=== PATIENT | female | born 1950 | race Caucasian/White ===

== ENCOUNTER 2021-01-25 11:34 | Outpatient (REF) | payer MEDICARE, OTHER, SELFPAY ==
[2021-01-25 20:46] LABS: ALT 48 U/L (14-59); AST 33 U/L (15-37); Albumin 3.8 g/dL (3.4-5.0); Alkaline Phosphatase 83 U/L (46-116); Anion Gap 6.4 mmol/L (3-11); BUN 28 mg/dL (7-18); Bilirubin, Total 0.3 mg/dL (0.2-1.0); CO2 30.6 mmol/L (21.0-32.0); CREATININE 0.9 mg/dL (0.55-1.02); Calcium 9.3 mg/dL (8.5-10.1); Calculated LDL 123 mg/dL (<100); Chloride 105 mmol/L (98-107); Cholesterol 203 mg/dL (<200); Glucose 103 mg/dL (74-106); HDL Cholesterol 66 mg/dL (40-60); Potassium 4.7 mmol/L (3.5-5.1); Sodium 142 mmol/L (136-145); Total Protein 7.1 g/dL (6.4-8.2); Triglyceride 70 mg/dL (<150)
== END 2021-01-25 11:35 | disposition home or self-care (01) ==
LOC: NCHCN 11:34
PROVIDERS: Visit Provider Nurse Practitioner Family
DX: E78.5 Hyperlipidemia, unspecified (principal)
CPT/HCPCS: 80053; 80061

== ENCOUNTER 2021-12-22 09:34 | Outpatient (REF) | payer MEDICARE, OTHER, SELFPAY ==
[2021-12-22 20:50] LABS: ALT 52 U/L (14-59); AST 37 U/L (15-37); Albumin 3.8 g/dL (3.4-5.0); Alkaline Phosphatase 80 U/L (46-116); Anion Gap 6.4 mmol/L (3-11); BUN 21 mg/dL (7-18); Bilirubin, Total 0.3 mg/dL (0.2-1.0); CO2 30.6 mmol/L (21.0-32.0); CREATININE 0.7 mg/dL (0.55-1.02); Calcium 9.3 mg/dL (8.5-10.1); Calculated LDL 75 mg/dL (<100); Chloride 105 mmol/L (98-107); Cholesterol 168 mg/dL (<200); Estimated GFR 93.56 (mL/min/1.73m2); Glucose 95 mg/dL (74-106); HDL Cholesterol 82 mg/dL (40-60); Potassium 4.2 mmol/L (3.5-5.1); Sodium 142 mmol/L (136-145); Total Protein 7.7 g/dL (6.4-8.2); Triglyceride 55 mg/dL (<150)
== END 2021-12-22 09:35 | disposition home or self-care (01) ==
LOC: NCHCN 09:34
PROVIDERS: Visit Provider Nurse Practitioner Family
DX: E78.5 Hyperlipidemia, unspecified (principal)
CPT/HCPCS: 80053; 80061

== ENCOUNTER 2022-02-25 14:38 | Outpatient (REF) | payer MEDICARE, OTHER, SELFPAY ==
--- NOTE | 2022-02-25 12:00 | LIPBX_PTH ---
PATIENT: Deborah Macias LOC: [facility]#:[id number] AGE/SX: 72/F ROOM: RE02/25/[address]: Yovana Herrera : 1950 BED: DIS: 02/25/2022 SPEC #: [id number] RECD: 02/28/22 12:10 STATUS: NICOLE REEvaristo #: [id number] MARLYS: 02/25/22 12:[address]: Yovana Herrera DEPT: Surgical Specimen RECD BY: Meghana Livingston Tissues: 1 - LIP BIOPSY/RESECTION 2 - SKIN CYST/TAG/DEBRIDEMENT Procedures: GROSS AND MICRO LEVEL 4 SKIN LEVEL 4 Comments: [id number]
--- OUTSIDE RECORDS SUMMARY | 2022-02-25 14:50 | XMS_ITS | Continuity of Care Document ---
:1950 Author Organization [facility] Address [address] [place] [address] Care Team Providers Name Role Phone PCP, Not Given Primary Care Physician Unavailable Preet Thakkar Attending Physician Allergies, Adverse Reactions, Alerts No allergy information available. Medications No medication information available. Problem List No problem information available. Procedures No known history of procedures. Relevant Diagnostic Tests and/or Laboratory Data Laboratory Results Test Date/Time Result Interp. Ref. Range Result Comment White Blood Count September 26, 2019 2.80 1000/mm3 Low 4.8-10.8 11:46am Red Blood Count September 26, 2019 4.33 M/mm3 4.20-5.40 11:46am Hemoglobin September 26, 2019 13.3 g/dL 12.0-16.0 11:46am Hematocrit September 26, 2019 42.0 % 37-47 11:46am Mean Corpuscular September 26, 2019 97.0 fL 81.0-99.0 Volume 11:46am Mean Corpuscular September 26, 2019 30.7 pg 27-31 Hemoglobin 11:46am Mean Corpuscular September 26, 2019 31.7 g/dL Low 33-37 Hemoglobin Concent 11:46am Red Cell Distribution September 26, 2019 12.3 % 11.5-14.5 Width 11:46am Platelet Count September 26, 2019 204 1000/mm3 140-440 11:46am Mean Platelet Volume September 26, 2019 11.2 fL High 7.4-10.4 11:46am Neutrophils (%) (Auto) September 26, 2019 50.3 % 40.0-72.0 11:46am Lymphocytes (%) (Auto) September 26, 2019 36.8 % 17-45 11:46am Monocytes (%) (Auto) September 26, 2019 10.4 % 3-11 11:46am Eosinophils (%) (Auto) September 26, 2019 1.4 % 0-3 11:46am Basophils (%) (Auto) September 26, 2019 1.1 % High 0-1 11:46am Immature Granulocyte % September 26, 2019 0.0 % 0-1 (Auto) 11:46am Neutrophils # (Auto) September 26, 2019 1.41 1000/mm3 1.4-6.5 11:46am Lymphocytes # (Auto) September 26, 2019 1.03 1000/mm3 Low 1.2-3.4 11:46am Monocytes # (Auto) September 26, 2019 0.29 1000/mm3 0.0-0.8 11:46am Eosinophils # (Auto) September 26, 2019 0.04 1000/mm3 0.0-0.7 11:46am Basophils # (Auto) September 26, 2019 0.03 1000/mm3 0.0-0.1 11:46am Absolute Immature September 26, 2019 0.0 0-1 Granulocyte (auto 11:46am Differential Method September 26, 2019 Automated 11:46am Sodium Level September 26, 2019 138 mmol/L 137-145 11:46am Potassium Level September 26, 2019 4.2 mmol/L 3.6-5.0 11:46am Chloride Level September 26, 2019 99 mmol/L 98-107 11:46am Carbon Dioxide Level September 26, 2019 33 mmol/L High 22-30 11:46am Anion Gap September 26, 2019 6 Low 7-16 11:46am Blood Urea Nitrogen September 26, 2019 17 mg/dL 7-17 11:46am Creatinine September 26, 2019 0.62 mg/dL 0.52-1.04 11:46am Glomerular Filtration September 26, 2019 > 60 mL/min 60.0- Rate Calc 11:46am Glucose Level September 26, 2019 100 mg/dL 70-100 11:46am Calcium Level September 26, 2019 9.3 mg/dL 8.4-10.2 11:46am Calcium Adjusted for September 26, 2019 9.1 mg/dL 8.4-10.2 Albumin 11:46am Total Bilirubin September 26, 2019 0.3 mg/dL 0.2-1.3 11:46am Aspartate Amino Transf September 26, 2019 48 U/L High 14-36 (AST/SGOT) 11:46am Alanine September 26, 2019 36 U/L High As of 07/19/19 , the Reference Range for ALT/SGPT for adult patients has been updated. Aminotransferase 11:46am The Refe rence Range for ALT/SGPT has not been established for patients <18 years of age. (ALT/SGPT) Total Protein September 26, 2019 7.1 g/dL 6.3-8.2 11:46am Albumin September 26, 2019 4.6 g/dL 3.5-5.0 11:46am Cholesterol Level September 26, 2019 212 mg/dL High 59-199 11:46am HDL Cholesterol September 26, 2019 60 mg/dL 40-60 The [place] Cholesterol Education Program (NCEP) has set the following guidelines (reference values) for cholesterol, HDL: 11:46am Low HDL: <40 m g/dL Normal: 40-60 mg/dL Desirable: >60 mg/dL LDL Cholesterol September 26, 2019 123.4 mg/dL 0-129 11:46am VLDL Cholesterol September 26, 2019 28.6 mg/dL 0-32 11:46am Cholesterol/HDL Ratio September 26, 2019 3.53 0-3.9 11:46am Triglycerides Level September 26, 2019 143 mg/dL 0-149 11:46am Alkaline Phosphatase September 26, 2019 73 U/L 38-126 11:46am Hospital Discharge Instructions No known hospital discharge instructions. Encounters Encounter Facility Location Admit/Visit Discharge/Departure Atte nding Date Date Provider Departed [facility] September 26, 2019 September 26, 2019 6:58pm [facility] 6:57pm [facility] Functional Status No known functional status. Immunizations No known immunizations. Payers Payer Policy Type Covered Covered Relationship Subscriber Subs criber Id Name Green Party Green Party Id [employer] CORA [id number] Sponsored CORA [id number] DEWART [employer] (DO NOT USE) NOTCH Personal DEBORAH [id number] Self/Same as DEBORAH [id number] ANNE Patient ANNE SELF PAY Personal Plan of Care No Known Plan of Care Information Social History No known social history. Vital Signs No known vital signs results.
--- OUTSIDE RECORDS SUMMARY | 2022-02-25 14:50 | XMS_ITS | Continuity of Care Document ---
:1950 Author Organization [facility] Address [address] [place] [address] Care Team Providers Name Role Phone PCP, of Choice Primary Care Physician Sue Tamayo Attending Physician Allergies, Adverse Reactions, Alerts No allergy information available. Medications No medication information available. Problem List No problem information available. Procedures No known history of procedures. Relevant Diagnostic Tests and/or Laboratory Data Laboratory Results Test Date/Time Result Interp. Ref. Range Result Comment White Blood Count November 26, 3.01 1000/mm3 Low 4.8-10.8 2019 10:00am Red Blood Count November 26, 4.52 M/mm3 4.20-5.40 2019 10:00am Hemoglobin November 26, 13.9 g/dL 12.0-16.0 2019 10:00am Hematocrit November 26, 43.1 % 37-47 2019 10:00am Mean Corpuscular November 26, 95.4 fL 81.0-99.0 Volume 2019 10:00am Mean Corpuscular November 26, 30.8 pg 27-31 Hemoglobin 2019 10:00am Mean Corpuscular November 26, 32.3 g/dL Low 33-37 Hemoglobin Concent 2019 10:00am Red Cell Distribution November 26, 12.6 % 11.5-14.5 Width 2019 10:00am Platelet Count November 26, 259 1000/mm3 542-183 8175 10:00am Mean Platelet Volume November 26, 10.6 fL High 7.4-10.4 2019 10:00am Neutrophils (%) (Auto) November 26, 51.1 % 40.0-72.0 2019 10:00am Lymphocytes (%) (Auto) November 26, 31.2 % 17-45 2019 10:00am Monocytes (%) (Auto) November 26, 12.0 % High 3-11 2019 10:00am Eosinophils (%) (Auto) November 26, 4.7 % High 0-3 2019 10:00am Basophils (%) (Auto) November 26, 1.0 % 0-1 2019 10:00am Immature Granulocyte % November 26, 0.0 % 0-1 (Auto) 2019 10:00am Neutrophils # (Auto) November 26, 1.54 1000/mm3 1.4-6.5 2019 10:00am Lymphocytes # (Auto) November 26, 0.94 1000/mm3 Low 1.2-3.4 2019 10:00am Monocytes # (Auto) November 26, 0.36 1000/mm3 0.0-0.8 2019 10:00am Eosinophils # (Auto) November 26, 0.14 1000/mm3 0.0-0.7 2019 10:00am Basophils # (Auto) November 26, 0.03 1000/mm3 0.0-0.1 2019 10:00am Absolute Immature November 26, 0.0 0-1 Granulocyte (auto 2020 10:00am Differential Method November 26, Automated 2019 10:00am Sodium Level November 26, 141 mmol/L 257-183 0759 10:00am Potassium Level November 26, 4.6 mmol/L 3.6-5.0 2019 10:00am Chloride Level November 26, 100 mmol/L 98-107 2019 10:00am Carbon Dioxide Level November 26, 36 mmol/L High 22-30 2019 10:00am Anion Gap November 26, 5 Low 7-16 2019 10:00am Blood Urea Nitrogen November 26, 22 mg/dL High 7-17 2019 10:00am Creatinine November 26, 0.69 mg/dL 0.52-1.04 2019 10:00am Glomerular Filtration November 26, > 60 mL/min 60.0- Rate Calc 2019 10:00am Glucose Level November 26, 110 mg/dL High 70-100 2019 10:00am Calcium Level November 26, 9.9 mg/dL 8.4-10.2 2019 10:00am Calcium Adjusted for November 26, 9.8 mg/dL 8.4-10.2 Albumin 2019 10:00am Total Bilirubin November 26, 0.3 mg/dL 0.2-1.3 2019 10:00am Aspartate Amino Transf November 26, 50 U/L High 14-36 (AST/SGOT) 2019 10:00am Alanine November 26, 48 U/L High As of 5/1/20 , the Reference Range for ALT/SGPT for adult patients has been updated. Aminotransferase 2019 10:00am The Re ference Range for ALT/SGPT has not been established for patients <18 years of age. (ALT/SGPT) Total Protein November 26, 7.3 g/dL 6.3-8.2 2019 10:00am Albumin November 26, 4.4 g/dL 3.5-5.0 2019 10:00am Cholesterol Level November 26, 198 mg/dL 59-199 2019 10:00am HDL Cholesterol November 26, 67 mg/dL High 40-60 The [facility] Cholesterol Education Program (NCEP) has set the following guidelines (reference values) for cholesterol, HDL: 2019 10:00am Low HDL: <40 mg/dL Normal: 40-60 mg/dL Desirable: >60 mg/dL LDL Cholesterol November 26, 99.4 mg/dL 0-129 2019 10:00am VLDL Cholesterol November 26, 31.6 mg/dL 0-32 2019 10:00am Cholesterol/HDL Ratio November 26, 2.95 0-3.9 2019 10:00am Triglycerides Level November 26, 158 mg/dL High 0-149 2019 10:00am Alkaline Phosphatase November 26, 83 U/L 38-126 2019 10:00am Hospital Discharge Instructions No known hospital discharge instructions. Encounters Encounter Facility Location Admit/Visit Discharge/Departure Atte nding Date Date Provider Departed [facility] November 26, November 27[facility] Departed [facility] September 26, 2019 September 26, 2019 [facility] Functional Status No known functional status. Immunizations No known immunizations. Payers Payer Name Policy Type Covered Covered Relationship Subscriber Sub scriber Id Constitution Party Constitution Party Id [employer] CORA [id number] Sponsored CORA BHAT [id number] BANK (DO FROILAN Dependent FROILAN NOT USE) [employer] ADELIA [id number] Self/Same as ADELIA RJ [id number] [place] ANNE Patient ANNE NOTCH Personal ADELIA [id number] Self/Same as ADELIA [id number] [facility] Patient ANNE SELF PAY Personal Plan of Care No Known Plan of Care Information Social History No known social history. Vital Signs No known vital signs results.
--- OUTSIDE RECORDS SUMMARY | 2022-02-25 14:50 | XMS_ITS | Continuity of Care Document ---
:1950 Author Organization [facility] Address [address] [place] [address] Phone Care Team Providers Name Role Phone PCP, Not Given Primary Care Provider Unavailable Preet Thakkar Attending Provider Allergies, Adverse Reactions, Alerts No allergy information available. Medications No medication information available. Problems No problem information available. Relevant Diagnostic Tests and/or Laboratory Data Laboratory Results Test Date/Time Result Interpretation Reference Result Perfo rming Range Comment Site White Blood Count September 25, 2.80 4.8-10.8 [place] IN LAB, [facility] 2019 1000/mm3 [facility] [address] 11:46am Red Blood Count September 25, 4.33 M/mm3 4.20-5.40 PEG N LAB, [facility] 2019 [facility] 61381 11:46am Hemoglobin September 25, 13.3 g/dL 12.0-16.0 MAIN LAB, [address] [place] [address] 2019 [facility] [address] 11:46am Hematocrit September 25, 42.0 % 37-47 MAIN LAB, [facility] 2019 [facility] 24460 11:46am Mean Corpuscular September 25, 97.0 fL 81.0-99.0 PEG N LAB, [facility] Volume 2019 [facility] 58938 11:46am Mean Corpuscular September 25, 30.7 pg 27-31 PEG N LAB, [address] [place] [address] Hemoglobin 2020 [facility] [address] 11:46am Mean Corpuscular September 25, 31.7 g/dL 33-37 PEG N LAB, [address] [place] [address] Hemoglobin 2020 [facility] [address] Concent 11:46am Red Cell September 25, 12.3 % 11.5-14.5 MAIN LAB, [facility] Distribution 2019 [facility] [address] Width 11:46am Platelet Count September 25, 204 140-440 MAIN LAB, [address] [place] [address] 2019 1000/mm3 [facility] 46496 11:46am Mean Platelet September 25, 11.2 fL 7.4-10.4 MAIN L AB, [address] [place] [address] Volume 2019 [facility] 71724 11:46am Neutrophils (%) September 25, 50.3 % 40.0-72.0 MAIN LAB, [address] [place] [address] (Auto) 2019 [facility] [address]406 11:46am Lymphocytes (%) September 25, 36.8 % 17-45 MAIN LAB, [address] [place] [address] (Auto) 2019 [facility] 66878 11:46am Monocytes (%) September 25, 10.4 % 3-11 MAIN L AB, [address] [place] [address] (Auto) 2019 [facility] [address]708 11:46am Eosinophils (%) September 25, 1.4 % 0-3 MAIN LAB, [address] [place] [address] (Auto) 2019 [facility] 93937 11:46am Basophils (%) September 25, 1.1 % 0-1 MAIN L AB, [address] [place] [address] (Auto) 2019 [facility] [address]141 11:46am Immature September 25, 0.0 % 0-1 MAIN LAB, [address] [place] [address] Granulocyte % 2019 [place] [address] (Auto) 11:46am Neutrophils # September 25, 1.41 1.4-6.5 MAIN L AB, [address] [place] [address] (Auto) 2019 1000/mm3 [facility] 87968 11:46am Lymphocytes # September 25, 1.03 1.2-3.4 MAIN L AB, [address] [place] [address] (Auto) 2019 1000/mm3 [facility] 45596 11:46am Monocytes # September 25, 0.29 0.0-0.8 MAIN LAB , [address] [place] [address] (Auto) 2019 1000/mm3 [facility] 66061 11:46am Eosinophils # September 25, 0.04 0.0-0.7 MAIN L AB, [address] [place] [address] (Auto) 2019 1000/mm3 [place] [address] 11:46am Basophils # September 25, 0.03 0.0-0.1 MAIN LAB , [address] [place] [address] (Auto) 2019 1000/mm3 [place] [address] 11:46am Absolute Immature September 25, 0.0 0-1 MA IN LAB, [address] [place] [address] (auto 2019 [facility] [address] 11:46am Differential September 25, Automated MAIN LA B, [address] [place] [address] Method 2019 [place] [address] 11:46am Sodium Level September 25, 138 mmol/L 137-145 MAIN L AB, [address] [place] [address] 11:46am Potassium Level September 25, 4.2 mmol/L 3.6-5.0 PEG N LAB, [address] [place] [address] 11:46am Chloride Level September 25, 99 mmol/L 98-107 MAIN LAB, [address] [place] [address] 11:46am Carbon Dioxide September 25, 33 mmol/L 22-30 MAIN LAB, [address] [place] [address] 2019 [place] [address] 11:46am Anion Gap September 25, 6 7-16 MAIN LAB, [address] [place] [address] 11:46am Blood Urea September 25, 17 mg/dL 7-17 MAIN LAB, [address] [place] [address] Nitrogen 2019 [place] [address] 11:46am Creatinine September 25, 0.62 mg/dL 0.52-1.04 MAIN LAB , [address] [place] [address] 11:46am Glomerular September 25, > 60 >60.0 MAIN LAB, [address] [place] [address] Filtration Rate 2019 mL/min [place] [address] Calc 11:46am Glucose Level September 25, 100 mg/dL 70-100 MAIN L AB, [address] [place] [address] 11:46am Calcium Level September 25, 9.3 mg/dL 8.4-10.2 MAIN L AB, [address] [place] [address] 2019 [facility] [address]135 11:46am Calcium Adjusted September 25, 9.1 mg/dL 8.4-10.2 PEG N LAB, [address] [place] [address] for Albumin 2019 [facility] [address] 11:46am Total Bilirubin September 25, 0.3 mg/dL 0.2-1.3 MAIN LAB, [address] [place] [address] 11:46am Aspartate Amino September 25, 48 U/L 14-36 MAIN LAB, [address] [place] [address] (AST/SGOT) 2019 [facility] [address] 11:46am Alanine September 25, 36 U/L <35 As of MAIN LAB, [address] [place] [address] Aminotransferase 201907/19/19, the [facility] [address] (ALT/SGPT) 11:46am Reference Range for ALT/SGPT for adult patients has been updated. The Reference Range for ALT/SGPT has not been established for patients <18 years of age. Total Protein September 25, 7.1 g/dL 6.3-8.2 MAIN L AB, [address] [place] [address] 2019 [facility] 28727 11:46am Albumin September 25, 4.6 g/dL 3.5-5.0 MAIN LAB, [address] [place] [address] 2019 [facility] [address]35[address] 11:46am Cholesterol Level September 25, 212 mg/dL 59-199 [place] IN LAB, [address] [place] [address] 11:46am HDL Cholesterol September 25, 60 mg/dL 40-60 [facility] AIN LAB, [address] [place] [address] 2019 Cholesterol [facility] 51492 11:46am Education Program (NCEP) has set the following guidelines (reference values) for cholesterol, HDL:Low HDL: <40 mg/dLNormal: 40-60 mg/dLDesirab le: >60 mg/dL LDL Cholesterol September 25, 123.4 0-129 MAIN LAB, [address] [place] [address] 2019 mg/dL [facility] 72442 11:46am VLDL Cholesterol September 25, 28.6 mg/dL 0-32 [place] IN LAB, [address] [place] [address] 2019 [facility] 08482 11:46am Cholesterol/HDL September 25, 3.53 0-3.9 MAIN LAB, [address] [place] [address] 2019 [facility] [address] 11:46am Triglycerides September 25, 143 mg/dL 0-149 MAIN L AB, [address] [facility] Level [address] [place] [address] 11:46am Alkaline September 25, 73 U/L 38-126 MAIN LAB, [address] [facility] Phosphatase 2020 [place] [address] 11:46am Advance Directives Advance Directive Response Recorded Date/Time Does patient have an Advanced Directive? No February 09, 2010 1:35pm Pt has a Living Will? No February 09 201 0 1:35pm Pt has a Power of Timber Sprinkler? No January 1:35pm Encounters Encounter Location(s) Arrival/Admit Date Discharge/Depart Date Provider(s) Departed [facility] September 26, 2019 September 26, 2019 6:58pm Peret Thakkar , Referred Medical 6:57pm JENNY [facility] Assessments No Assessments Information Available Functional Status No Functional Status information available Goals Goals may be documented in an alternate section. Mental Status No Mental Status Information Available Medical Equipment No Medical Equipment Information available Insurance Providers Guarantor Deborah Echevarria Address [address] [place] [address] Contact Info. Home Phone: Payer Policy Id Coverage Id Subscriber's Subscriber Id Effective E xpiration Name Date Date BLUE [id number] CORA Flores [id number] [employer] (DO NOT USE) [facility] [id number] DEBORAH Awad [id number] ANNE SELF PAY Self N/A Social History Assigned Sex Female
--- OUTSIDE RECORDS SUMMARY | 2022-02-25 14:51 | XMS_ITS | Continuity of Care Document ---
:1950 Author Organization [facility] Address [address] [place] [address] Phone Care Team Providers Name Role Phone PCP, Not Given Primary Care Provider Unavailable Preet Thakkar Attending Provider PCP, of Choice Primary Care Provider Unavailable Sue Loco Attending Provider Allergies, Adverse Reactions, Alerts No allergy information available. Medications No medication information available. Problems No problem information available. Relevant Diagnostic Tests and/or Laboratory Data Laboratory Results Test Date/Time Result Interpretation Reference Result Perfo rming Range Comment Site White Blood Count September 25, 2.80 4.8-10.8 [place] IN LAB, [facility] 2019 1000/mm3 [facility] [address] 11:46am White Blood Count November 3.01 4.8-10.8 [place] IN LAB, [address] [place] [address] 2019 1000/mm3 [facility] 82565 10:00am Red Blood Count November 4.52 M/mm3 4.20-5.40 PEG N LAB, [address] [place] [address] 2019 [facility] 02136 10:00am Red Blood Count September 25, 4.33 M/mm3 4.20-5.40 PEG N LAB, [address] [place] [address] 2019 [facility] 74892 11:46am Hemoglobin September 25, 13.3 g/dL 12.0-16.0 MAIN LAB, [address] [place] [address] 2019 [facility] 95203 11:46am Hemoglobin November 13.9 g/dL 12.0-16.0 MAIN LAB, [address] [place] [address] 2019 [facility] 98190 10:00am Hematocrit September 25, 42.0 % 37-47 MAIN LAB, [facility] [address] [place] [address] 11:46am Hematocrit November 43.1 % 37-47 MAIN LAB, [address] [place] [address] 2019 [place] [address] 10:00am Mean Corpuscular November 95.4 fL 81.0-99.0 PEG N LAB, [facility] Volume [address] [place] [address] 10:00am Mean Corpuscular September 25, 97.0 fL 81.0-99.0 PEG N LAB, [address] [place] [address] Volume 2019 [place] [address] 11:46am Mean Corpuscular September 25, 30.7 pg 27-31 PEG N LAB, [address] [place] [address] Hemoglobin 2019 [place] [address] 11:46am Mean Corpuscular November 30.8 pg 27-31 PEG N LAB, [address] [place] [address] Hemoglobin 2019 [place] [address] 10:00am Mean Corpuscular November 32.3 g/dL 33-37 PEG N LAB, [address] [place] [address] Hemoglobin 2019 [place] [address] Concent 10:00am Mean Corpuscular September 25, 31.7 g/dL 33-37 PEG N LAB, [address] [place] [address] Hemoglobin 2019 [place] [address] Concent 11:46am Red Cell September 25, 12.3 % 11.5-14.5 MAIN LAB, [facility] Distribution 2019 [place] [address] Width 11:46am Red Cell November 12.6 % 11.5-14.5 MAIN LAB, [address] [place] [address] Distribution 2019 [place] [address] Width 10:00am Platelet Count November 259 140-440 MAIN LAB, [facility] 2019 1000/[place]3 [place] [address] 10:00am Platelet Count September 25, 204 140-440 MAIN LAB, [facility] 2019 1000/[place]3 [place] [address] 11:46am Mean Platelet November 10.6 fL 7.4-10.4 MAIN L AB, [facility] Volume [address] [place] [address] 10:00am Mean Platelet September 25, 11.2 fL 7.4-10.4 MAIN L AB, [address] [place] [address] Volume 2019 [facility] 38076 11:46am Neutrophils (%) September 25, 50.3 % 40.0-72.0 MAIN LAB, [address] [place] [address] (Auto) 2019 [facility] 44588 11:46am Neutrophils (%) November 51.1 % 40.0-72.0 MAIN LAB, [address] [place] [address] (Auto) 2019 [facility] 99033 10:00am Lymphocytes (%) November 31.2 % 17-45 MAIN LAB, [address] [place] [address] (Auto) 2019 [facility] 84752 10:00am Lymphocytes (%) September 25, 36.8 % 17- MAIN LAB, [address] [place] [address] (Auto) 2019 [facility] 61853 11:46am Monocytes (%) September 25, 10.4 % 3-11 MAIN L AB, [address] [place] [address] (Auto) 2019 [facility] 86683 11:46am Monocytes (%) November 12.0 % 3-11 MAIN L AB, [address] [place] [address] (Auto) 2019 [facility] 78765 10:00am Eosinophils (%) September 25, 1.4 % 0-3 MAIN LAB, [address] [place] [address] (Auto) 2019 [facility] [address]80 11:46am Eosinophils (%) November 4.7 % 0-3 MAIN LAB, [address] [place] [address] (Auto) 2019 [facility] [address]11 10:00am Basophils (%) November 1.0 % 0-1 MAIN L AB, [address] [place] [address] (Auto) 2019 [facility] [address]449 10:00am Basophils (%) September 25, 1.1 % 0-1 MAIN L AB, [address] [place] [address] (Auto) 2019 [facility] 85540 11:46am Immature November 0.0 % 0-1 MAIN LAB, [address] [place] [address] Granulocyte % 2019 [facility] [address] (Auto) 10:00am Immature September 25, 0.0 % 0-1 MAIN LAB, [address] [place] [address] Granulocyte % 2019 [facility] [address] (Auto) 11:46am Neutrophils # September 25, 1.41 1.4-6.5 MAIN L AB, [address] [place] [address] (Auto) 2019 1000/[place]3 [place] [address] 11:46am Neutrophils # Nelly 1.54 1.4-6.5 MAIN L AB, [address] [place] [address] (Auto) 2019 1000/[place]3 [place] [address] 10:00am Lymphocytes # September 25, 1.03 1.2-3.4 MAIN L AB, [address] [place] [address] (Auto) 2019 1000/[place]3 [place] [address] 11:46am Lymphocytes # Nelly 0.94 1.2-3.4 MAIN L AB, [address] [place] [address] (Auto) 2019 1000/[place]3 [place] [address] 10:00am Monocytes # Nelly 0.36 0.0-0.8 MAIN LAB , [address] [place] [address] (Auto) 2019 1000/[place]3 [place] [address] 10:00am Monocytes # September 25, 0.29 0.0-0.8 MAIN LAB , [address] [place] [address] (Auto) 2019 1000/[place]3 [place] [address] 11:46am Eosinophils # November 0.14 0.0-0.7 MAIN L AB, [address] [place] [address] (Auto) 2019 1000/[place]3 [place] [address] 10:00am Eosinophils # September 25, 0.04 0.0-0.7 MAIN L AB, [address] [place] [address] (Auto) 2019 1000/[place]3 [place] [address] 11:46am Basophils # September 25, 0.03 0.0-0.1 MAIN LAB , [address] [place] [address] (Auto) 2019 1000/[place]3 [place] [address] 11:46am Basophils # November 0.03 0.0-0.1 MAIN LAB , [address] [place] [address] (Auto) 2019 1000/[place]3 [place] [address] 10:00am Absolute Immature Nelly 0.0 0-1 MA IN LAB, [address] [place] [address] Granulocyte (auto 2019 [place] [place] [address] 10:00am Absolute Immature September 25, 0.0 0-1 [place] IN LAB, [address] [place] [address] Granulocyte (auto [address] [place] [address] 11:46am Differential Nelly Automated MAIN LA B, [facility] Method 2019 [facility] 64771 10:00am Differential September 25, Automated MAIN LA B, [address] [facility] 2019 [facility] [address]774 11:46am Sodium Level November 141 mmol/L 137-145 MAIN L AB, [address] [place] [address] 2019 [facility] 28050 10:00am Sodium Level September 25, 138 mmol/L 137-145 MAIN L AB, [address] [place] [address] 2019 [facility] 63766 11:46am Potassium Level September 25, 4.2 mmol/L 3.6-5.0 PEG N LAB, [address] [place] [address] 11:46am Potassium Level November 4.6 mmol/L 3.6-5.0 PEG N LAB, [address] [place] [address] 2019 [facility] 62871 10:00am Chloride Level November 100 mmol/L 98-107 MAIN LAB, [address] [place] [address] 2019 [facility] 74013 10:00am Chloride Level September 25, 99 mmol/L 98-107 MAIN LAB, [address] [place] [address] 11:46am Carbon Dioxide November 36 mmol/L 22-30 MAIN LAB, [address] [place] [address] 2019 [facility] 00676 10:00am Carbon Dioxide September 25, 33 mmol/L 22-30 MAIN LAB, [address] [place] [address] 2019 [facility] 90653 11:46am Anion Gap September 25, 6 7-16 MAIN LAB, [address] [place] [address] 2019 [facility] 88406 11:46am Anion Gap November 5 7-16 MAIN LAB, [address] [place] [address] 2019 [facility] 37235 10:00am Blood Urea November 22 mg/dL 10-03 MAIN LAB, [address] [place] [address] Nitrogen 2019 [facility] 17089 10:00am Blood Urea September 25, 17 mg/dL 10-03 MAIN LAB, [address] [place] [address] 2019 [facility] 66500 11:46am Creatinine September 25, 0.62 mg/dL 0.52-1.04 MAIN LAB , [address] [place] [address] 2019 [place] [address] 11:46am Creatinine November 0.69 mg/dL 0.52-1.04 MAIN LAB , [address] [place] [address] 2019 [place] [address] 10:00am Glomerular September 25, > 60 >60.0 MAIN LAB, [address] [place] [address] Filtration Rate 2019 mL/min [place] [address] Calc 11:46am Glomerular Nelly > 60 >60.0 MAIN LAB, [address] [place] [address] Filtration Rate 2019 mL/min [place] [address] Calc 10:00am Glucose Level September 25, 100 mg/dL 70-100 MAIN L AB, [address] [place] [address] 2019 [place] [address] 11:46am Glucose Level November 110 mg/dL 70-100 MAIN L AB, [address] [place] [address] 2019 [place] [address] 10:00am Calcium Level September 25, 9.3 mg/dL 8.4-10.2 MAIN L AB, [address] [place] [address] 2019 [place] [address] 11:46am Calcium Level November 9.9 mg/dL 8.4-10.2 MAIN L AB, [address] [place] [address] 2019 [place] [address] 10:00am Calcium Adjusted November 9.8 mg/dL 8.4-10.2 PEG N LAB, [address] [place] [address] for Albumin 2019 [facility] 41806 10:00am Calcium Adjusted September 25, 9.1 mg/dL 8.4-10.2 PEG N LAB, [address] [place] [address] for Albumin 2019 [facility] 30498 11:46am Total Bilirubin September 25, 0.3 mg/dL 0.2-1.3 MAIN LAB, [address] [place] [address] 2019 [place] [address] 11:46am Total Bilirubin November 0.3 mg/dL 0.2-1.3 MAIN LAB, [address] [place] [address] 2019 [place] [address] 10:00am Aspartate Amino November 50 U/L MAIN LAB, [address] [place] [address] Transf (AST/SGOT) 2019 [place] [address] 10:00am Aspartate Amino September 25, 48 U/L MAIN LAB, [address] [place] [address] Transf (AST/SGOT) 2019 [facility] 10509 11:46am Alanine November 48 U/L <35 As of MAIN LAB, [address] [place] [address] Aminotransferase 201907/19/19, the [facility] 10511 (ALT/SGPT) 10:00am Reference Range for ALT/SGPT for adult patients has been updated. The Reference Range for ALT/SGPT has not been established for patients <18 years of age. Alanine September 25, 36 U/L <35 As of MAIN LAB, [address] [place] [address] Aminotransferase 201907/19/19, the [facility] 34005 (ALT/SGPT) 11:46am Reference Range for ALT/SGPT for adult patients has been updated. The Reference Range for ALT/SGPT has not been established for patients <18 years of age. Total Protein November 7.3 g/dL 6.3-8.2 MAIN L AB, [address] [place] [address] 2019 [facility] 34606 10:00am Total Protein September 25, 7.1 g/dL 6.3-8.2 MAIN L AB, [address] [place] [address] 2019 [facility] 95902 11:46am Albumin September 25, 4.6 g/dL 3.5-5.0 MAIN LAB, [address] [place] [address] 2019 [facility] 47221 11:46am Albumin November 4.4 g/dL 3.5-5.0 MAIN LAB, [address] [place] [address] 2019 [facility] 86808 10:00am Cholesterol Level November 198 mg/dL 59-199 MA IN LAB, [address] [place] [address] 2019 [facility] 46170 10:00am Cholesterol Level September 25, 212 mg/dL 59-199 MA IN LAB, [address] [place] [address] 2019 [facility] 38394 11:46am HDL Cholesterol November 67 mg/dL 40-60 [facility] AIN LAB, [address] [place] [address] 2019 Cholesterol [facility] 91591 10:00am Education Program (NCEP) has set the following guidelines (reference values) for cholesterol, HDL:Low HDL: <40 mg/dLNormal: 40-60 mg/dLDesirab le: >60 mg/dL HDL Cholesterol September 25, 60 mg/dL 40-60 [facility] AIN LAB, [address] [facility] 2019 Cholesterol [facility] 27637 11:46am Education Program (NCEP) has set the following guidelines (reference values) for cholesterol, HDL:Low HDL: <40 mg/dLNormal: 40-60 mg/dLDesirab le: >60 mg/dL LDL Cholesterol November 99.4 mg/dL 0-129 PEG N LAB, [address] [place] [address] 2019 [facility] 66026 10:00am LDL Cholesterol September 25, 123.4 0-129 MAIN LAB, [address] [place] [address] 2019 mg/dL [facility] 97373 11:46am VLDL Cholesterol November 31.6 mg/dL 0-32 MA IN LAB, [address] [place] [address] 2019 [facility] 01381 10:00am VLDL Cholesterol September 25, 28.6 mg/dL 0-32 [place] IN LAB, [address] [place] [address] 2019 [facility] 48476 11:46am Cholesterol/HDL September 25, 3.53 0-3.9 MAIN LAB, [address] [place] [address] 2019 [facility] 13447 11:46am Cholesterol/HDL November 2.95 0-3.9 MAIN LAB, [address] [place] [address] Ratio 2019 [facility] 87111 10:00am Triglycerides September 25, 143 mg/dL 0-149 MAIN L AB, [address] [facility] 2019 [facility] 34293 11:46am Triglycerides November 158 mg/dL 0-149 MAIN L AB, [address] [place] [address] Level 2019 [facility] 03923 10:00am Alkaline September 25, 73 U/L 38-126 MAIN LAB, [address] [place] [address] Phosphatase 2019 [facility] 99395 11:46am Alkaline November 83 U/L 38-126 MAIN LAB, [address] [place] [address] Phosphatase 2019 [facility] 47667 10:00am Advance Directives Advance Directive Response Recorded Date/Time Does patient have an Advanced Directive? No February 09, 2010 1:35pm Pt has a Living Will? No February 09 201 0 1:35pm Pt has a Power of Collar Turner Operator? No January 1:35pm Chief Complaint and Reason for Visit Chief Complaint encounter for general adult medical exam Encounters Encounter Location(s) Arrival/Admit Date Discharge/Depart Date Provider(s) Departed [facility] September 26, 2019 September 26, 2019 6:58pm Preet Thakkar , [facility] 6:57pm [place] [facility] Departed [facility] November 26November 27, 2019 Sue Montoya Beronica [facility] 2019 3:41pm 3:42pm MICA INSPECTOR [facility] Assessments No Assessments Information Available Functional Status No Functional Status information available Goals Goals may be documented in an alternate section. Mental Status No Mental Status Information Available Medical Equipment No Medical Equipment Information available Insurance Providers Guarantor ADELIA RODRÍGUEZ Address [address] [address] Contact Info. Home Phone: Payer Policy Id Coverage Id Subscriber's Subscriber Id Effective E xpiration Name Date Date VIOLETTE LEON [id number] CORA Flores [id number] BANK (DO FROILAN NOT USE) VIOLETTE LEON [id number] ADELIA Awad [id number] [facility] [id number] ADELIA Awad [id number] ANNE SELF PAY Self N/A Social History Assigned Sex Female
== END 2022-02-25 14:39 | disposition home or self-care (01) ==
LOC: NCHCN 14:38
PROVIDERS: Visit Provider Physician Assistant
DX: L72.8 Other follicular cysts of the skin and subcutaneous tissue (principal); S80.852D Superficial foreign body, left lower leg, subsequent encounter; Z18.89 Other specified retained foreign body fragments; B36.8 Other specified superficial mycoses
CPT/HCPCS: 88305; 88304

== ENCOUNTER 2022-12-26 13:29 | Outpatient (REF) | payer MEDICARE, OTHER, SELFPAY ==
--- NOTE | 2022-12-26 08:30 | PAPFT_PTH ---
PATIENT: Deborah Macias LOC: [facility]#:[id number] AGE/SX: 72/F ROOM: RE12/26/[address]: Ivanna Wright : 1950 BED: DIS: 12/26/2022 SPEC #: [id number] RECD: 12/27/22 15:43 STATUS: NIOCLE REQ #: [id number] MARLYS: 12/26/22 08:[address]: Barbara Wright DEPT: [facility] Cytology RECD BY: Nargis Carballo ENTERED: 12/27/22 15:43 SP TYPE: PAPFT OTHR DR: Unknown,Unknown Tissues: 1 - CX/ENDOCX FOR PAP SMEARS Procedures: PAP THIN PREP/UVM Screening HPV DNA PROBE Comments: [id number]
[2022-12-26 19:39] LABS: ALT 57 U/L (14-59); AST 48 U/L (15-37); Anion Gap 5.5 mmol/L (3-11); BUN 24 mg/dL (7-18); CO2 30.5 mmol/L (21.0-32.0); CREATININE 0.8 mg/dL (0.55-1.02); Calcium 9.4 mg/dL (8.5-10.1); Calculated LDL 84 mg/dL (<100); Chloride 104 mmol/L (98-107); Cholesterol 176 mg/dL (<200); Estimated GFR 79.22 (mL/min/1.73m2); Glucose 102 mg/dL (74-106); HDL Cholesterol 87 mg/dL (40-60); Potassium 4.1 mmol/L (3.5-5.1); Sodium 140 mmol/L (136-145); Triglyceride 29 mg/dL (<150)
== END 2022-12-26 13:30 | disposition home or self-care (01) ==
LOC: NCHCN 13:29
PROVIDERS: Visit Provider Nurse Practitioner Family
DX: E78.5 Hyperlipidemia, unspecified (principal); Z12.4 Encounter for screening for malignant neoplasm of cervix; Z11.51 Encounter for screening for human papillomavirus (HPV); Z01.419 Encounter for gynecological examination (general) (routine) without abnormal findings
CPT/HCPCS: 80048; 80061; 88142; 84450; 84460; 87624

== ENCOUNTER 2024-02-06 09:53 | Outpatient (REF) | payer MEDICARE, OTHER, SELFPAY ==
--- NOTE | 2024-02-06 09:15 | SKI_PTH ---
PATIENT: Deborah Macias LOC: [facility]#:[id number] AGE/SX: 74/F ROOM: RE02/06/[address]: Ivanna Wright : 1950 BED: DIS: 02/06/2024 SPEC #: [id number] RECD: 02/06/24 18:26 STATUS: NICOLE REQ #: [id number] MARLYS: 02/06/24 09:[address] RECD BY: Meghana Livingston ENTERED: 02/06/24 18:28 SP TYPE: DOMINGO SALDIVAR DR: Unknown,Unknown Tissues: 1 - SKIN BIOPSY(SHAVE/PUNCH) Procedures: SKIN LEVEL 4 Comments: [id number]
--- OUTSIDE RECORDS SUMMARY | 2024-02-06 10:00 | XMS_ITS | Encounter Summary ---
Author Organization [facility] [place] [address] Care Team Providers Care Extender Name Role Phone None Primary Care Provider Unavailabl e Reason for Visit * Reason Onset Date Comments Pre Procedure Call 06/27/2018 Encounter Details Date Type Department Care Team (Late st Contact Info) Description 06/27/2018 Telephone Dermatology at [facility] [address] [place] [phone] Rossana Abreu CMA Pre Procedure Call Social History Tobacco Use Types Packs/Day Years Used Date Smoking Tobacco: Never Smokeless Tobacco: Never Alcohol Use Standard Drinks/Week Comments No 0 (1 standard drink = 0.6 oz pur e alcohol) Sex and Gender Information Value Date Recorded Sex Assigned at Not on file Gender Identity Not on file Sexual Orientation Not on file documented as of this encounter Miscellaneous Notes * Telephone Encounter - Rossana Abreu CMA - 06/27/2018 4:06 PM EDT Mohs consultation and preoperative note (H&P) Patient Name: Deborah Macias Age: 68 y.o. Date of : 1950 Today's Date: 06/27/2018 REFERRING PROVIDER: No ref. provider found CC: Mohs micrographic surgery for treatment of a cutaneous tumor HPI: Deborah Macias is a 68 y.o. female presenting for Mohs micrographic surgery. The dermatologic preoperative information sheet was reviewed with pertinent positive and negative listed as below. DERMATOLOGIC PRE-OPERATIVE EVALUATION AND REVIEW OF SYSTEMS (Check those that apply) Yes No Yes No [] [x] Prior skin cancer(s)? [] [x] Organ transplant (type/year)? [] [x] History of melanoma? [] [x] History of radiation to head/neck areas for skin cancer [] [x] Heart disease? [] [x] Cardiac stents? [] [x] Valve replacement (which valves and year)? [] [x] Pacemaker? [] [x] Defibrillator? [x] [] Joint replacement or scheduled for one soon? (how long ago) right hip 8 years ago [] [x] Hearing aids? [] [x] Cochlear, cosmetic, or other implants? [] [x] Hypertension (controlled/not controlled)? [] [x] Lung Disease/COPD/asthma? And If yes, do you have difficulty lying flat due to breathing? [] [x] Dementia/stroke? [] [x] Liver disease? [] [x] Other cancers? [] [x] Hepatitis or HIV? [] [x] Diabetes (Type 1 or 2?) [] [x] Bleeding disorder? [] [x] History of reaction to suture or glue [] [x] Fibromyalgia or extreme sensitivity to pain? [] [x] Personal history of addiction to alcohol, drugs, or prescription medications? [] [x] Basal cell nevus syndrome (ie genetic syndromes that predispose to skin cancer) [] [x] Have you EVER had a prior prosthetic joint infection? [] [x] Any drugs that suppress your immune system such as prednisone that you are taking regularly? [] [x] Other (scarring issues, relevant anesthesia allergies, needle phobia, anxiety, etc): [] [x] History of congenital heart defects where a prosthetic device was placed (at or childhood)? BLOOD THINNERS: Yes Aspirin Yes No [] [x] NSAIDS [x] [] Fish oil/Multivitamin/Vit E/?? supplements?? (discontinue 1 week before and after surgery) [] [x]???natural?? 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 spouse, children, fci/penitentiary)? Alone Relevant travel history or future plans: Back to work in July Prior bed tanning use Yes, than 50 times Does patient need any assistive devices: None. Sunscreen use: yes Tobacco use (amount per day, type of tobacco. If no tobacco, former smoker?): no Alcohol use (type and amount per day - daily, occasional, never): no Marital status: . Highest grade completed: grad school Is the patient literate (ie can patient read and write)?: yes History of bed tanning?: yes Any physical limitations?: yes PAST MEDICAL HISTORY Past Medical History: Diagnosis Date ? ? Nausea & vomiting PAST SURGICAL HISTORY Past Surgical History: Procedure Laterality Date ??? MUSCULOSKELETAL SURGERY UNLISTED left elbow ??? TOTAL HIP ARTHROPLASTY 08/05/2011 @TOTAL HIP ARTHROPLASTY, ANTERIOR APPROACH performed by PORTILLO CORNEJO at [facility] MAIN OR ??? UNLISTED EVALUATION SERVICE removal of uterus ALLERGIES: Allergies Allergen Reactions ??? Alcohol migraine ??? Chocolate Flavor Migraine MEDICATIONS: Current Outpatient Medications on File Prior to Visit Medication Sig Dispense Refill ??? aspirin 325 mg EC tablet Take 325 mg by mouth daily. ??? multivitamin (THERAGRAN) tablet Take 1 tablet by mouth daily. ??? VITAMIN B COMPLEX ORAL Take 1 tablet by mouth daily. ??? BLACK COHOSH ORAL Take 1 tablet by mouth daily. ??? acetaminophen (TYLENOL) 500 mg tablet Take 2 tablets by mouth every 8 hours as needed for Pain. ??? FLAXSEED ORAL by Misc.(Non-Drug; Combo Route) route. ??? EVENING PRIMROSE OIL (EVENING PRIMROSE ORAL) Take by mouth. ??? RED YEAST RICE ORAL Take by mouth. ??? lovastatin (MEVACOR) 20 mg tablet Take 20 mg by mouth nightly. ??? GLUCOSAMINE HCL (GLUCOSAMINE, BULK, MISC) by Misc.(Non-Drug; Combo Route) route. ??? ERGOCALCIFEROL, VITAMIN D2, (VITAMIN D ORAL) Take by mouth. ??? ASCORBATE CALCIUM (VITAMIN C ORAL) Take by mouth. No current facility-administered medications on file prior to visit. documented in this encounter Plan of Treatment Not on file documented as of this encounter Visit Diagnoses Not on filedocumented in this encounter Care Teams Extender Relationship Specialty Start Date End Date None None PCP - General 5/9/12 4/17/19 documented as of this encounter
--- OUTSIDE RECORDS SUMMARY | 2024-02-06 10:00 | XMS_ITS | Encounter Summary ---
Author Organization [facility] [place] [address] Care Team Providers Care Patcher Name Role Phone None Primary Care Provider Unavailabl e Reason for Visit * Reason Onset Date Comments New Medication Request 06/17/2014 Encounter Details Date Type Department Care Team (Late st Contact Info) Description 06/17/2014 [place] [phone] Krish Anders RN New Medication Request Social History Tobacco Use Types Packs/Day Years [...] encounter Miscellaneous Notes * Telephone Encounter - Krish Brody RN - 06/17/2014 10:46 AM EDT Patient is 3 years post MASOUD. She has broken some teeth and is in need of several dental appointments. She is requesting a prescription for antibiotics to take apophylactically. We will sent the prescription to her pharmacy today. documented in this encounter Plan of Treatment Not on file documented as of this encounter Visit Diagnoses Not on filedocumented in this encounter Care Teams Patcher Relationship Specialty Start Date End Date None None PCP - General 07/27/11 07/04/18 documented as of this encounter
--- OUTSIDE RECORDS SUMMARY | 2024-02-06 10:00 | XMS_ITS | Encounter Summary ---
Author Organization [facility] Address [address] [place] [address] Care Team Providers Care Environmental Field Team Member Name Role Phone Unavailable Primary Care Provider Unavailabl e Encounter Details Date Type Department Care Team (Late st Contact Info) Description 05/15/2007 Results Only [facility] [address] [place] [address] Rashi Loco, INTRANET SUPPORT [address] [place] [phone] Social History Tobacco Use Types Packs/Day Years Used Date Smoking Tobacco: Never Assessed Comments Unknown Sex and Gender Information Value Date Recorded Sex Assigned at Not on file Legal Sex Female 17:52 EST Gender Identity Not on file Sexual Orientation Not on file documented as of this encounter Plan of Treatment Not on file documented as of this encounter Procedures Procedure Name Priority Date/Time Associated Diagnosis Comments HPV DETECTION, HIGH RISK TYPES Routine 05/15/2007 14:53 EST CYTOPATHOLOGY Routine 05/15/2007 0:00 EST documented in this encounter Results * HUMAN PAPILLOMA VIRUS DNA TEST (05/15/2007 14:53 EST) Specimen Description Cervix, ThinPrep vial [facility] Result Quantity not sufficient. Credit Issued [facility] Report Status Final [id number] [facility] 05/15/2007 14:5 3 EST 05/22/2007 14:53 EST us Rashi Loco NP MICROBIOLOGY - GENERAL ORDERABL ES Final Result [facility] [address] [place] [address] * CYTOPATHOLOGY (05/15/2007 0:00 EST) Pathology Report: CYTOPATHOLOGY REPORT Reports generated via electronic interface contain original data; however they are lacking the format of the original report. Caution should be taken when reading/interpreti ng unformatted reports. Name: ? DEBORAH MACIAS ? Accession #: ? [id number] : ? 1950 (Age: 57) ??F ?Collect Date: ? 05/15/2007 Location: ? [facility] ? Receive Date: ? 05/17/2007 Provider: ?RASHI LOCO NP Copy to: ? [facility] ?[address] ?[place], [place] [address] ? Specimen/Source: ?ThinPrep Pap Test, Vagina, processed on [employer] ThinPrep Imaging System, with manual evaluation Last Menstrual Period: ? Treatment History: ? Hysterectomy: 2001 Other: ? HPVDX - HPV testing requested regardless of diagnosis on current ThinPrep Pap test. ? SPECIMEN ADEQUACY ? Satisfactory for Evaluation - assessment of transformation zone component not applicable ( e.g. atrophy, vaginal sample, hysterectomy) GENERAL CATEGORIZATION ? Negative for Intraepithelial Lesion or Malignancy INTERPRETATION ? Glandular cells present status post hysterectomy. ? Document reviewed and electronically signed by: ? Pedro Manzo MD ? Report Date: ??05/22/2007 11:58 End of Report [facility] 05/15/2007 05/17/2007 us Rashi Loco NP PATHOLOGY ORDERABLES Final Resu lt [facility] [address] [place] [address] documented in this encounter Visit Diagnoses Not on filedocumented in this encounter
--- OUTSIDE RECORDS SUMMARY | 2024-02-06 10:00 | XMS_ITS | Encounter Summary ---
Author Organization [facility] [place] [address] Care Team Providers Care Proposal Lead Writer Name Role Phone None Primary Care Provider Unavailabl e Reason for Visit * Reason Onset Date Comments Right Hip Pain 08/14/2013 Encounter Details Date Type Department Care Team (Late st Contact Info) Description 08/14/2013 [place] [address] Krish Anders RN Right Hip Pain Social History Tobacco Use Types Packs/Day Years [...] Telephone Encounter - Krish Brody RN - 08/14/2013 3:05 PM EDT Ms Macias called and left a voicemail message stating that she is having pain in her right hip. She is 3 yrs s/p Right MASOUD. She did go to the dentist two weeks ago but took the prescribed antibiotics beforehand. She is very worried. Message left for her to call back to discuss. documented in this encounter Plan of Treatment Not on file documented as of this encounter Visit Diagnoses Not on filedocumented in this encounter Care Teams Proposal Lead Writer Relationship Specialty Start Date End Date None None PCP - General 07/27/11 07/04/18 documented as of this encounter
--- OUTSIDE RECORDS SUMMARY | 2024-02-06 10:00 | XMS_ITS | Referral Summary ---
Author Organization [facility] Address [address] [place] [address] Care Team Providers Care Hand Ii Cutter Name Role Phone Lorenzo Anton MD Primary Care Provider [phone] Social History Tobacco Use Types Packs/Day Years Used Date Smoking Tobacco: Never Assessed Comments Unknown Sex and Gender Information Value Date Recorded Sex Assigned at Not on file Legal Sex Female 17:52 EST Gender Identity Not on file Sexual Orientation Not on file Plan of Treatment Not on file Insurance GENERIC COMMERCIAL MEDICARE ACO [place] Advance Directives For more information, please contact: [phone] Documents on File Type Date Recorded Patient Construction Safety Manager Expl anation Advance Directive 12/13/2023 10:30 -Advance Directive for Health Care & TCD with Samy Martinezuse Care Teams Hand Ii Cutter Relationship Specialty Start Date End Date Lorenzo Anton MD [address] [place] [address] PCP - General 02/09/15
--- OUTSIDE RECORDS SUMMARY | 2024-02-06 10:00 | XMS_ITS | Encounter Summary ---
Author Organization [facility] Address [address] [place] [address] Care Team Providers Care Housekeeping/Laundry Name Role Phone Unavailable Primary Care Provider Unavailabl e Encounter Details Date Type Department Care Team (Late st Contact Info) Description 11/02/2005 Results Only [facility] - [place] [address] [place] [address] Shira Vela NP [address] [place] [address] Social History Tobacco Use Types Packs/Day Years [...] Procedure Name Priority Date/Time Associated Diagnosis Comments CYTOPATHOLOGY Routine 11/02/2005 0:00 EDT documented in this encounter Results * CYTOPATHOLOGY (11/02/2005 0:00 EDT) Pathology Report: CYTOPATHOLOGY REPORT Reports generated via electronic interface contain original data; however they are lacking the format of the original report. Caution should be taken when reading/interpreti ng unformatted reports. Name: ? DEBORAH MACIAS ? Accession #: ? [id number] : ? 1950 (Age: 55) ??F ?Collect Date: ? 11/02/2005 Location: ? [facility] ? Receive Date: ? 11/04/2005 Provider: ?SHIRA BAUMANN FIELD INVESTIGATOR Copy to: ? Specimen/Source: ?ThinPrep Pap Test, Cervix/Endocervix, processed on [employer] ThinPrep Imaging System, with manual evaluation Last Menstrual Period: ? Other: ? HPVA - HPV testing requested if ASC-US on the current ThinPrep Pap test. ? SPECIMEN ADEQUACY ? Satisfactory for Evaluation - transformation zone component present GENERAL CATEGORIZATION ? Negative for Intraepithelial Lesion or Malignancy ? Document reviewed and electronically signed by: ? KELVIN Chung(ASCP) ? Report Date: ??11/09/2005 12:31 End of Report [facility] 11/02/2005 11/04/2005 us Shira Baumann NP PATHOLOGY ORDERABLE S Final Result Performing Organization Address City/State/[facility] Co de Phone Number [facility] [address] [place] [address] documented in this encounter Visit Diagnoses Not on filedocumented in this encounter
--- OUTSIDE RECORDS SUMMARY | 2024-02-06 10:00 | XMS_ITS | Encounter Summary ---
Author Organization [facility] [place] [place] [address] Care Team Providers Care Varnishing Unit Tool Setter Name Role Phone None Primary Care Provider Unavailabl e Encounter Details Date Type Department Care Team (Late st Contact Info) Description 08/03/[address] [facility] [address] [place] [id number] Kasie Singleton, RN Social History Tobacco Use Types Packs/Day Years [...] encounter Miscellaneous Notes * Telephone Encounter - Kasie Singleton LPN - 08/03/2018 3:37 PM EDT Patient called requesting FMLA paperwork be faxed to her employer regarding taking another couple of weeks to allow her open wound on the right lower extremity to heal. She states her ankle becomes swollen if she does not elevate every 1-2 hours. Denies pain or concern for infection. Advised we have received her FMLA form an will fax on Monday08/06/18. Deborah states she also needs a copy faxed to Jose Alvarado, she will call as soon as she has received that fax number. KASIE SINGLETON LPN documented in this encounter Plan of Treatment Not on file documented as of this encounter Visit Diagnoses Not on filedocumented in this encounter Care Teams Varnishing Unit Tool Setter Relationship Specialty Start Date End Date None None PCP - General 07/05/18 02/23/22 documented as of this encounter
--- OUTSIDE RECORDS SUMMARY | 2024-02-06 10:00 | XMS_ITS | Encounter Summary ---
[place] [address] Care Team Providers Care Television Cable Installer Name Role Phone None Primary Care Provider Unavailabl e Reason for Visit * Reason Onset Date Comments Medication Refill 07/30/2013 Encounter Details Date Type Department Care Team (Late st Contact Info) Description 07/30/2013 [place] [address] Krish Anders RN Social History Tobacco Use Types Packs/Day [...] on filedocumented in this encounter Care Teams Television Cable Installer Relationship Specialty Start Date End Date None None PCP - General 07/27/11 07/04/18 documented as of this encounter
--- OUTSIDE RECORDS SUMMARY | 2024-02-06 10:00 | XMS_ITS | Clinical Summary ---
Author Organization [facility] Address [address] [place] [address] Care Team Providers Care Scoop Machine Operator Name Role Phone Lorenzo Anton MD Primary Care Provider [phone] Social History Tobacco Use Types Packs/Day Years Used Date Smoking Tobacco: Never Assessed Comments Unknown Sex and Gender Information Value Date Recorded Sex Assigned at Not on file Legal Sex Female 17:52 EST Gender Identity Not on file Sexual Orientation Not on file Plan of Treatment Health Maintenance Due Date Last Done Comments Hepatitis C Screen 1950 Fall Risk Screening 01/27/2017 COVID-19 Vaccine (2023-25 season) 2023 RSV Immunization ( o r 60+ Years) (1 - 1-dose 75+ series) 01/27/2027 Insurance GENERIC COMMERCIAL MEDICARE ACO [place] Advance Directives For more information, please contact: [phone] Documents on File Type Date Recorded Patient Pediatric Audiologist Expl anation Advance Directive 12/13/2023 10:30 -Advance Directive for Health Care & TCD with Samy Clause Care Teams Scoop Machine Operator Relationship Specialty Start Date End Date Lorenzo Anton MD [address] [place] [address] PCP - General 02/09/15
--- OUTSIDE RECORDS SUMMARY | 2024-02-06 10:00 | XMS_ITS | Encounter Summary ---
Author Organization [facility] Address [address] [place] [address] Care Team Providers Care Engineering Technician Name Role Phone Lorenzo Anton MD Primary Care Provider [phone] Encounter Details Date Type Department Care Team (Late st Contact Info) Description 02/28/2022 Lab Requisition [facility] Pathology & Laboratory Medicine - [facility] [address] [place] [address] Yovana Herrera PA [address] [place] [id number] Encounter for other general examination Social History Tobacco Use Types Packs/Day Years [...] Procedure Name Priority Date/Time Associated Diagnosis Comments SURGICAL PATHOLOGY Today 02/25/2022 12 :00 EST Encounter for other general examination documented in this encounter Results * SURGICAL PATHOLOGY (02/25/2022 12:00 EST) Note to Patient The following pathology results have been interpreted by your pathologist and may be available to you before your health provider has had the opportunity to review them. Please allow time for your provider to receive these results and explore management options, if applicable. 03/01/2022 15:57 EST [facility] Final Diagnosis A. LIP, LEFT CORNER OF FACE, SHAVE BIOPSY: - Superficial portion of cystically dilated follicle. See comment. B. SKIN OF LEG, LEFT LOWER, SHAVE BIOPSY: - Foreign material morphologically consistent with splinter, with associated fungal elements. 03/01/2022 15:57 [facility] Diagnosis Comment In specimen A, multiple levels of the biopsy have been reviewed. There is no evidence of malignancy. Present within the submucosa are reactive blood vessels and a superficial portion of a cystically dilated follicular unit. Clinical correlation is recommended. Of note, a smaller piece of tissue was also present within the specimen container which did not survive processing. In specimen B, on superficial sections is foreign material morphologically suggestive of splinter. Within the splinter are fungal elements, the speciation uncertain. The epidermis underlying this has an endophytic growth pattern with reparative changes. Digital Campaign Manager slides of this case were reviewed at the intradepartmental consultation conference. 03/01/2022 15:57 [facility] Attestation By the signature below, the attending physician certifies that they have 1) personally conducted a gross and/or microscopic examination of the described specimen(s), and/or personally interpreted the results of laboratory testing of the described specimen(s), and 2) personally rendered or confirmed the above diagnosis. 03/01/2022 15:57 [facility] at 1557 Clinical History Hx of squamous cell carcinoma; A. 0.3 cm x 0.3 cm round raised red papule; B. 0.4 cm x 0.3 cm red raised papule w/black spot in center; clinical diagnosis code: D48.5 03/01/2022 15:57 [facility] Gross Description A. Received in formalin labelled with proper patient identification (initials M, H) and lip are 2 white-friedman tissue fragments (0.2 x 0.1 x 0.1 cm and 0.4 x 0.2 x 0.1 cm). The possible margin of the larger tissue is inked blue and the specimen is entirely submitted in A1. B. Received in formalin labelled with proper patient identification (initials M, H) and L leg is a shave biopsy of friedman-waters to peripherally brown variegated skin (0.9 x 0.9 x 0.1 cm). There is a white centrally friedman-red and centrally encrusted waxy focus (0.5 x 0.5 cm) present. The margin is inked black. The tissue is trisected and entirely submitted in B1. JENNY DUMONT(ASCP) 02/28/2022 17:21 03/01/2022 15:57 EST [facility] Performing Lab [facility] 03/01/2022 15:57 EST [facility] Scanned Images 03/01/2022 15:57 EST [facility] Tissue TISSUE SPECIMEN FROM SKIN / Unknown 02/25/2022 12:00 EST 02/28/2022 17:03 EST Tissue specimen (specimen) SPECIMEN FROM SKIN / Unknown 02/25/2022 12:00 EST 02/28/2022 17:03 EST us Yovana ALVARADO PATHOLOGY ORDERABLES Fin al Result [facility] [address] [place] [address] documented in this encounter Visit Diagnoses Diagnosis Encounter for other general examination documented in this encounter Care Teams Engineering Technician Relationship Specialty Start Date End Date Lorenzo Anton MD [address] [place] [address] PCP - General 02/09/15 documented as of this encounter
--- OUTSIDE RECORDS SUMMARY | 2024-02-06 10:00 | XMS_ITS | Encounter Summary ---
Author Organization [facility] Address [facility] [place] [address] Care Team Providers Care Student Finance Advisor Name Role Phone None Primary Care Provider Unavailabl e Reason for Visit * Reason Comments Squamous Cell Carcinoma Encounter Details Date Type Department Care Team (Latest Contact Info) Description 07/05/2018 9:45 AM EDT Procedure visit Dermatology at [facility] [address] [place] [address] Prosper Ulrich MD [facility] [place] [address] Squamous cell carcinoma of lower leg, right Social History Tobacco Use Types Packs/Day Years Used Date Smoking Tobacco: Never Smokeless Tobacco: Never Alcohol Use Standard Drinks/Week Comments No 0 (1 standard drink = 0.6 oz pur e alcohol) Sex and Gender Information Value Date Recorded Sex Assigned at Not on file Gender Identity Not on file Sexual Orientation Not on file documented as of this encounter Last Filed Vital Signs Vital Sign Reading Time Taken Comments Blood Pressure 121/73 07/05/2018 9:39 AM EDT Pulse 59 07/05/2018 9:39 AM EDT Temperature - - Respiratory Rate - - Oxygen Saturation - - Inhaled Oxygen Concentration - - Weight - - Height - - Body Mass Index - - documented in this encounter Patient Instructions * Patient Instructions* Rossana Abreu CMA - 07/05/2018 9:45 AM EDT SECOND INTENTION HEALING IT WAS DECIDED THAT YOUR MOHS WOUND WILL HEAL BY NATURE, ON ITS OWN, WITHOUT RECONSTRUCTION OR SIGNIFICNAT STITCHING Second intention means healing on its own. Your wound may heal within days if it is small, shallow, and if you are a fast healer. However, a larger and deeper wound may take weeks to months to completely heal. One of the advantages of a wound healing on its own, is that you do not have many physical restrictions. You may want to take it easy for the first 48 hours after surgery to prevent bleeding, but you may otherwise resume exercise and return to work. You may begin showering 48 hours after surgery but avoid direct water pressure from the shower headto your wound to prevent bleeding and tenderness/pain. Keep below as a reference while caring for your wound(s): After Surgery 1. Avoid tobacco, smoking/vapors, and cannabis (marijuana) for at least 3 weeks after your surgery.Smoking impairs healing and leads to worse scarring. Even cutting back on tobacco is helpful if youcannot stop or avoid this completely. 2. Do not drink alcohol for roughly 3 days as this can slow healing or cause bleeding. 3. Do not participate in athletic activities or heavy chores, or lift anything heavier than 10 pounds, for 2 days. Avoid climbing the stairs unless necessary during this time as well. You may resume your activities as usual after 2 days 4. Avoid swimming, hot tubs, and direct water pressure for 3 weeks after surgery. You may shower once your initial bandage comes off in 48 hours, however. If you do choose to swim in a pool, pond, crabtree, or ocean while your wound is still open, please make sure to wash the wound with soapy water imme diately. There is also the option to apply a gauze soaked in diluted vinegar for 15 minutes immediately after swimming (see recipe at the bottom of our instructions). The vinegar soak can help prevent infection, and can also help if you think your wound is getting smelly. Vinegar soaks are especially helpful for healing ear wounds. 5. Avoid antibiotic ointments such as triple antibiotic creams. Stick with your wound care instructions, please. 6. Whenever possible, it is helpful to take photographs with your camera or cell phone of any problems or concerns you see with your wound. We often ask for photos when you call with questions. 7. Starting 2 months following surgery, you can begin firm massage to any areas of firm scar along your incision to soften the scar and reduce bumpiness. Do this 3 times per day, 3 minutes each time.Do not start massage before 2 months. 8. Your wound will first develop is squishy yellowish substance at the bottom of the wound called granulation. This is your healing flesh. Once the inside of your wound has healed in, then the skin edges will begin to follow by getting closer and closer together until the wound has closed completely. The rate of how fast you heal is highly variable, but doing proper wound care will help you heal more quickly. 9. Keep your follow-up appointments and make sure to continue to have your skin checked, as often as is recommended by your fire prevention officer, for new skin cancers. This is once per year for most patients. 10. Your can expect your scar to be red for several weeks with gradual fading of the redness over the next few months. 11. To optimize your scar, and best cosmetic result, please avoid direct sunlight to your healed scar for the first 6 months following surgery. UV ray exposure from the sun may cause the redness to last longer, or to cause permanent darkening of your scar. You can avoid sun by covering your incision with a bandage when outdoors, or wearing SPF 30 to 50 sunscreen (broad spectrum). 12. Bruising. It is very common to have bruising and swelling of the eyelids or other areas of faceif you had surgery on the forehead, temples, cheeks, or nose. This is expected in most patients andwill gradually resolve. \ 13. Iff you have severe pain not resolving with over the counter medicines, please call us. 14. You can use ice packs or a bag of frozen peas for 15-20 minutes 3-4 times daily to any areas ofswelling but do not get bandages wet or dirty. Use caution not to put the icy item directly on yourwound, directly onto your skin as this can damage skin, and avoid prolonged use more than 20 minutes. The best way to use ice packs is over the bandage, or a light cloth/paper towel between the ice pack and your skin. You can ice for as many days as needed until swelling has resolved. Wound Care ??? Gently remove your initial bandage (after 48 hours from surgery). It is normal to have swellingand bruising. ??? Begin wound care as below. ??? If your initial bandage only stayed on for 24 hours (for example, falls off sooner), this is okay. Resume your wound care and bandaging instructions as below. ??? Change your bandage once a day (and whenever it becomes wet or soaks through) until your sutures are removed. If you have absorbable sutures, you do wound care for 1 week and then stop. ??? For bandage changes: o Wash hands with soap and water, or use gloves that you can purchase at a local pharmacy or drug store. o Clean the surgical area with cotton-tipped swabs or soft gauze dipped in soapy water (recommend liquid soap in clean room temperature water). Roll the cotton swab over the incision with soapy water, then with plain water, and then gently pat dry. Do not scrub the area with a washcloth. Do not putdirect shower water pressure onto your wound. Do not pick off any scabs. It is okay to allow soapy w ater to run over your wound in the shower, however, as an alternative means of cleaning your wound. o If you cannot remove any bloody or crusted areas, you may soak the area with wet gauze first for 15 to 20 minutes to help soften it o Pat the area dry with clean gauze or cotton swabs. Do not rub. o Use a cotton swab or two to apply a generous layer of petrolatum over the incision lines and any open-wound areas. If it is difficult to get the patrolatum onto your wound, you can try applying it to the non-stick bandage itself and then putting the bandage over the wound. o Make sure your tube or jar of petrolatum is new or unused to prevent prior contamination from entering your wound. Avoid double dipping. o After applying petrolatum, use a clean nonstick gauze or other nonstick dressing, such as Telfa. This may be purchased over the counter at a drug store. Do not use regular gauze as it will stick toyour wound and can peel off healing skin with bandage changes. o Secure the bandage with paper tape or a bandage. Band-aids are okay, but typically have more adhesive that can irritate the skin compared to paper tape. This can be purchased at a drug store. o Continue this wound care daily until your wound has healed or until otherwise specified by your doctor. Keep in mind that if you do not want to use a bandage at all due to difficulty, irritation of skin,cost, or inconvenience --- you can certainly avoid bandages altogether. However, it is imperative that you continue with topical petrolatum (plain, fragrance-free). This may need to be applied several times daily if it gets wiped off, washed off, or dries out. Things to purchase for wound care: -Nonstick gauze -A tube or tub of petrolatum jelly (fragrance-free, no dye, not lotion) -paper tape -cotton swabs -gloves (optional) -Dial or other antibacterial liquid soap If you have specific questions or instructions, it can be written/typed by your nurse or doctor here: Antibiotics: If you were given antibiotic prescription, it is important to start them the evening of your surgery date. Most patients do not need antibiotics after surgery. For pain: Most patients of different ages do not require pain medications. If you do feel soreness or pain, start by taking over the counter extra strength acetaminophen (up to 3000 mg in a 24 hour period). Generally, we like you to avoid NSAIDS (non-steroid anti-inflammatory drugs such as ibuprofen) for thefirst 48 hours after surgery as this can increase risk of bleeding. However, if acetaminophen is not helping with pain, you can alternate acetaminophen with iburpofen (ibuprofen 400 mg every 4 hours.) Ice packs over your bandage without getting your bandage wet can also help with pain and swelling,for up to 20 minutes at a time (20 minutes off between icing sessions). Frozen peas work well as ice packs. THIS IS AN EXAMPLE OF A PAIN TREATMENT SCHEDULE: 1) You can take 500 mg acetaminophen one tablet by mouth at 6:00pm. This is over the counter. 2) You can take 400 mg of ibuprofen two hours later, at 8:00 pm, or other NSAID such as naproxen, as long as it does not interact with your other medications and your other doctors have not told you to avoid this. This is over the counter. Check to see how many milligrams (mg) each of your ibuprofen tablets are. Most of the time, ibuprofen comes in 200 mg tablets, so 400 mg would mean taking two of these tablets or capsules. 3) You can take 500 mg of acetaminophen at 10:00 pm. Keep track of your total acetaminophen in a 24hour period as your maximum should be 3000 mg total in a 24 hour period of this medication. 4) At midnight, you can take another 400 mg of ibuprofen. 5) you can continue on this schedule over the next 2 days, making sure to keep tabs of your total acetaminophen. If you are still in pain after trying the above, please call us. When to call your surgeon: ??? Fever of 100.4 degrees Fahrenheit or higher ??? Bleeding not controlled with direct firm pressure to your wound. Bleeding is most common in thefirst 48 hours. ??? Pain that is worsening and not relieved by over the counter medications such as acetaminophen (up to 3000 mg in a 24 hour period) ??? Wound reopening after stitching ??? Pus or bad odor from your wound ??? Worsening redness and warmth around your wound ??? If you think your surgery site is infected, please call us before seeking care or antibiotics from other providers ??? Please call us before seeking care in an emergency room or primary care. ??? If you do call, please leave your full name, phone number, date of , date of surgery, and medical record number if you have it. IF YOU ARE TRYING TO REACH US AFTER HOURS (before 8am, after 5pm, or on the weekends): Call the aviation warfare systems operator or [phone] and ask for the fire prevention officer on-call. If you have any non-urgent questions or concerns, please feel free to call my office or contact me through our patient portal, [facility], at [email or web address] How to contact us during business hours Mohs scheduling or Mohs follow-up appointments: [phone] OPTIONAL RECIPE FOR VINEGAR SOAKS VINEGAR SOAK RECIPE Add ?? (half) cup regular household white vinegar and add to 1 quart of clean room temperature water. You can store the solution itself in a jar in the refrigerator. Daily: take a clear thin towel or gauze dressings and pour the vinegar until the gauze is soaking wet. Apply the soaking wet gauze to your wound for 15 to 20 minutes. Do this twice daily ideally, once daily if you are unable to do this daily. Afterwards, wash with regular soap and water and coat with copious (thick) amounts of Vaseline and dress it as instructed. If the wound is on your leg, you can follow with a compression sock or SUZY bandage as this will minimize swelling and speed up healing as well. The vinegar will serve as an antiseptic and help your wound heal more quickly. If the solution stings or hurts, you can make it more dilute with more water. Continue these vinegar soaks until your wound is healed. It may take several weeks. documented in this encounter Progress Notes * Prosper Ulrich MD - 07/05/2018 9:45 AM EDT Images from the original note were not included. Mohs consultation and preoperative note (H&P) Patient Name: Deborah Macias Age: 68 y.o. 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 spouse, children, detention/fci)? Alone Relevant travel history or future plans: [...] ANTERIOR APPROACH performed by PORTILLO CORNEJO at [facility] OR ??? UNLISTED EVALUATION SERVICE removal of uterus ALLERGIES: Allergies Allergen Reactions ??? Alcohol migraine ??? Chocolate Flavor Migraine MEDICATIONS: Current Outpatient Medications on File Prior to Visit Medication Sig Dispense Refill ??? atorvastatin (LIPITOR) 20 mg Tablet TAKE 1 TABLET BY MOUTH DAILY 3 ??? aspirin 81 mg Tablet, Delayed Release (E.C.) Take 81 mg by mouth daily. ??? [DISCONTINUED] VITAMIN B COMPLEX ORAL Take 1 tablet by mouth daily. ??? [DISCONTINUED] RED YEAST RICE ORAL Take by mouth. ??? [DISCONTINUED] GLUCOSAMINE HCL (GLUCOSAMINE, BULK, MISC) by Misc.(Non-Drug; Combo Route) route. ??? acetaminophen (TYLENOL) 500 mg tablet Take 2 tablets by mouth every 8 hours as needed for Pain.(Patient not taking: Reported on 06/27/2018) No current facility-administered medications on file prior to visit. VITAL SIGNS: BP 121/73 (BP Location (NBP): Left arm, Patient Position: Sitting, BP Cuff Sizes: Adult (25-34 cm)) Pulse 59 PHYSICAL EXAMINATION: General: patient is awake, alert, oriented and in no acute distress. Skin: Focused examination of surgical site(s) performed which shows an erythematous scar corresponding with recent biopsy site. PHYSICIAN REVIEW OF REPORTS, RECORDS, IMAGES: 1) Biopsy slide(s) was/were requested and reviewed today by the Mohs surgeon prior to surgery and Iagree with diagnosis in the associated pathology report. 2) The accompanying pathology report(s) associated with aforementioned biopsy slide(s) were/was also reviewed. Assessment/Plan: Deborah Macias is a 68 y.o. female presenting for: 1. 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 On my review of intial path from biopsy, was mostly positive on deep margin. Plan to proceed with Mohs micrographic surgery. See operative report. Discussion: 1. Findings from the biopsy report, my independent review of the histopathology from the biopsy slides, today's clinical exam, and other pertinent details were reviewed with patient today. We discussed factors specific to the patient including the likely defect size and likely repair options based on the initial clinical picture. All questions were answered. 2. Discussed treatment options based on the above findings. I recommended Mohs micrographic surgeryfor treatment of this tumor. Mohs micrographic surgery was indicated due to patient, site and/or tumor characteristics (see operative report for specific indication). 3. We discussed risks, benefits, and alternative treatment options to the Mohs micrographic surgeryprocedure and pertinent information including but not limited to the following: ?? Risks include bleeding, infection, scar, recurrence, loss of sensation. Risks include incompletetumor removal or inability to cure with surgery alone if the tumor itself has features that are more aggressive than the initial pathology indicated, which cannot be known until tissue is evaluated. Occasionally, additional adjuvant treatments may be recommended based on frozen section tumor features. Additional risks include large wound, prolonged wound and healing, pain, swelling, bruising, increased appearance of vessels or worsening erythema of baseline skin; more rarely risks include damage to underlying structures such as nerves, cartilage, or muscle which could lead to temporary or permanent loss of sensation or motor function. ?? Benefit is precise tumor removal ?? If reconstruction is performed, it is specific to the patient and defect and takes account the patient's features, age, and preferences. Discussed that each defect is unique to the patient. ?? Discussed that the shape, size, depth of the wound is often not known until the tumor is clearedand thus the reconstruction options are sometimes not known until after tumor clearance. Occasionally, referrals to other providers may be recommended for reconstruction based on patient preference and need. ?? Reviewed the pros and cons of common reconstructions used for this tumor type, size, and location, and that reconstruction may lead to change in appearance. ?? Natural history of scar was discussed, including that the scar will continue to mature for 1-2 years. Recommended massage after 8 weeks to the scar, and especially avoidance of direct sun exposureto the scar for optimal recovery for at least 6 months. ?? Reviewed that there are some aspects of cosmesis that are dependent on patient's characteristicssuch as age, skin laxity/texture factors, size of pores, inflammatory skin diseases such as rosaceaor rhinophyma, prior surgery/radiation, degree of current sun damage, smoking status, strength of the patient's immune system, ability of patient to follow diligent wound care instructions, medications, and genetics. ?? Having Mohs surgery may lead to physical limitations for optimal healing, such as restricted physical activity and heavy lifting. The degree of limitations and duration depends on the specific size of the defect and reconstruction type. 4. The nature of sun-induced photo-aging and skin cancers was discussed. Recommended sun avoidance when possible, especially peak hours of sun 10 am to 2pm, protective clothing such as wide-brimmed hats and long-sleeved clothing, and the use of SPF broad-spectrum sunscreen SPF 30 to 50. 5. Signs and symptoms of skin cancer reviewed. Patient to report any new, changing, or symptomatic lesions and follow up with his or her referring fire prevention officer or other skin provider. Summary of Procedure(s): 1. Please see operative report for complete details. Mohs micrographic surgery was performed today,with tumor-free peripheral and deep margins. Please note that there is a pathology report from the biopsy, but no official pathology report for the Mohs surgery is generated. Rather, the operative report serves as the final margin assessment. Briefly, after clinical removal of the tumor, the tumor cleared after 2 stage(s) of Mohs micrographic excision. The final defect after Mohs surgery was repaired by second intention. Follow up as needed. Prosper Ulrich MD Mohs Micrographic Surgery and Dermatologic Oncology Section of Dermatology, Department of Surgery * Prosper Ulrich MD - 07/05/2018 9:45 AM EDT Images from the original note were not included. Mohs micrographic Surgery Operative Report Patient name: Deborah Macias : 1950 Date: 07/05/2018 Staff Surgeon: Prosper Ulrich MD Nursing/Senior Qa Engineer(s): Rosalba Fall aKsie Aparicio, Rossana Ospina, Fozia Gomez Photoengraving Retoucher (s): Sue Casrto, Baylee Connell, Elisha Wolf Pre-operative diagnosis: squamous cell carcinoma, invasive Post-operative diagnosis: squamous cell carcinoma, invasive, well differentiated Location/Site: right anterior lower leg Procedure: Mohs micrographic surgery Indication(s) for Mohs micrographic surgery: critical anatomic location Stages: 2 Preoperative size of tumor: 1.7 x 1.6 cm Final defect size: 2.6 x 2.9 cm Stage I The nature and purpose of the procedure, associated risks, possible consequences and complications,and alternative forms of treatment were explained in detail. We reviewed the possible repairs basedon the clinical appearance of tumor but discussed that often the repair options may not be known until the tumor has clarisa extirpated. Informed consent and permission to take photographs were obtained. The site was confirmed with the patient/authorized insurance representative/referring physician and/or a photograph form time of biopsy. A pre-operative time-out (procedural pause) was conducted with no unresolved discrepancies noted. Local anesthesia was obtained with 1% lidocaine with 1:100,000 epinephrine. The surgical site was prepped and draped in the usual sterile manner. Clinically apparent tumor was removed by curette. With all visible gross tumor completely excised, the borders of the tumor and 2- 3 mm margins were excised as a complete layer. Hemostasis was achieved by electrocoagulation. The excised tissue was oriented and divided into 4 sections, chromacoded, and submitted for frozen sections. The patient tolerated the procedure well and without complications. On microscopic evaluation of the frozen sections, residual tumor was identified as pseudoepitheliomatous hyperplasia with subjacent dense inflammation and focal areas suspicious for residual squamouscell carcinoma. Thus, safety margin taken on section A1,A2,A3 and A4 (see section number on map). Stage II The surgical site was re-anesthetized with 1% lidocaine with 1:100,000 epinephrine, re-prepped and redraped in a sterile manner. The residual tumor was re-excised as a complete layer 2-3mm in thickness using the Mohs map to delineate area of residual tumor. Hemostasis was achieved with electrocoagul ation. The tissue was oriented and divided into 2 sections, chromacoded, and submitted for frozen sections. The patient tolerated the procedure well and without complications. On microscopic evaluation of the frozen sections, no residual tumor was identified on the deep or outer border of the sections. The final size of the defect after complete tumor removal was 2.6 x 2.9 cm, extending to fascia. Prosper Ulrich MD Repair Operative Report (Second intention) Patient name: Deborah Macias : 1950 Date: 07/05/2018 Staff Surgeon: Prosper Ulrich MD Surveyor Instrument Assistant(s): Same as above Clinical Diagnosis: surgical defect secondary to Mohs micrographic surgery Location/Site: right anterior lower leg Procedure: Second intention After reviewing the reconstruction options including primary closure, local flaps, skin graft, and second intention healing, the patient elected to have the post Mohs defect heal by second intention. The surgical site was cleaned and any bleeding hemostasis achieved with electrosurgery. White petrolatum with a nonstick gauze pressure dressing was applied. The patient tolerated the procedure well and without complications and was given both verbal and written instruction on postoperative wound care. The patient was discharged in good condition. Total local anesthesia with 1% lidocaine with 1:100,000 epinephrine used: 6 cc Total local with 0.25% bupivacaine with 1:100,000 epinephrine used: 3 c Prosper Ulrich MD Mohs Micrographic Surgery and Dermatologic Oncology Section of Dermatology, Department of Surgery documented in this encounter Plan of Treatment Not on file documented as of this encounter Visit Diagnoses Diagnosis Squamous cell carcinoma of lower leg, right documented in this encounter Care Teams Student Finance Advisor Relationship Specialty Start Date End Date None None PCP - General 07/05/18 02/23/22 documented as of this encounter
--- OUTSIDE RECORDS SUMMARY | 2024-02-06 10:00 | XMS_ITS | Encounter Summary ---
Author Organization [facility] Address [address] [place] [address] Care Team Providers Care Log Inspector Name Role Phone Lorenzo Anton MD Primary Care Provider [phone] Encounter Details Date Type Department Care Team ([facility] st Contact Info) Description 03/12/2015 Results Only [facility] [phone] Rashi Loco, WELT STITCH CLEANER [address] [place] [address] Social History Tobacco Use Types Packs/Day [...] Procedure Name Priority Date/Time Associated Diagnosis Comments PAP TEST- RESULT ONLY Routine 03/12/2015 0:00 EST documented in this encounter Results * PAP TEST- RESULT ONLY (03/12/2015 0:00 EST) Pathology Report: CYTOPATHOLOGY REPORT Reports generated via electronic interface contain original data; however they are lacking the format of the original report. Caution should be taken when reading/interpreti ng unformatted reports. Name: ? DEBORAH MACIAS ? Accession #: ? [id number] ? : ? 1950 (Age: 65) ??F ?Collect Date: ? 03/12/2015 ? Location: ? [facility] ? Receive Date: ? 03/16/2015 ? Provider: RASHI LOCO WELT STITCH CLEANER Copy to: ? Final Report SPECIMEN ADEQUACY ? Satisfactory for Evaluation - assessment of transformation zone component not applicable ( e.g. atrophy, vaginal sample, hysterectomy) GENERAL CATEGORIZATION ? Negative for Intraepithelial Lesion or Malignancy ?? Last Menstrual Period: no longer has period Treatment History: Hysterectomy Specimen/Source: ??Pap Test, Cervix/Endocervix, ThinPrep Imaging System with manual evaluation Document reviewed and electronically signed by: ? KELVIN Chung(ASCP) ? Report ??Date: 03/17/2015 15:04 HPV with Pap Test ? Date Ordered: ? 03/17/2015 ? Status: ?? Signed Out ?Date Complete: ? 03/18/2015 ? By: ??System Interface ? Date Reported: ? 03/18/2015 ? Interpretation RESULT: Negative for HPV. No E6 or E7 mRNA is detected from HPV types 16,18,31,33,35, 39,45,51,52,56,58, 59,66, and 68 by lead ingot molder mediated amplification. Comments Document reviewed and electronically signed by: ? System Interface ? Report date: 03/18/2015 By the signature above, the attending physician certifies that he/she has personally conducted a gross and/or microscopic examination of the described specimens and rendered or confirmed the above diagnosis. End of Report [facility] 03/12/2015 03/16/2015 us Rashi Loco WELT STITCH CLEANER PATHOLOGY ORDERABLES Final Resu lt [facility] [address] [place] [address] documented in this encounter Visit Diagnoses Not on filedocumented in this encounter Care Teams Log Inspector Relationship Specialty Start Date End Date Lorenzo Anton MD [address] [place] [address] PCP - General 02/09/15 documented as of this encounter
--- OUTSIDE RECORDS SUMMARY | 2024-02-06 10:00 | XMS_ITS | Encounter Summary ---
Author Organization [facility] [place] [address] Care Team Providers Care Lip And Gate Builder Name Role Phone None Primary Care Provider Unavailabl e Reason for Visit * Reason Comments Aftercare Of Tjr R MASOUD DOS 08/05/11 Encounter Details Date Type Department Care Team (Late st Contact Info) Description 09/14/2011 3:30 PM EDT Office Visit [place] [address] Theo Pantoja, PA [facility] DR [facility] [address] S/P hip replacement (Primary Dx) Discharge Disposition: Home Social History Tobacco Use Types Packs/Day Years [...] Sign Reading Time Taken Comments Blood Pressure 109/70 09/14/2011 3:45 PM EDT Pulse 59 09/14/2011 3:45 PM EDT Temperature - - Respiratory Rate - - Oxygen Saturation - - Inhaled Oxygen Concentration - - Weight 49.2 kg (108 lb 8 oz) 09/14/2011 3:45 PM EDT Height 153.7 cm (5' 0.5) 09/14/2011 3:45 PM EDT Body Mass Index 20.84 09/14/2011 3:45 PM EDT documented in this encounter Patient Instructions * Patient Instructions* Radha Allred CMA - 09/14/2011 3:45 PM EDT Editacome to Lookout, your secure online access to your electronic medical record at [facility]. Using Lookout you will be able to send messages to your providers, view your test results, renew prescriptions, schedule appointments, and much more. Follow these instructions to enter your personal Lookout account for the first time: 1. Start your internet browser and type [email or web address] into the address bar. 2. In the New User box on the right-hand side of the Welcome page click the link that states, ???I have an activation code.?? 3. On the Identification page, follow these steps: a) Enter your Lookout activation code: [email or web address] b) Expires: 10/29/11 03:45 PM IMPORTANT: This Activation Code will on the above mentioned date. If you do not sign up for Lookout by this date, you will need to request another activation code. c) Enter your date of , using the calendar tool provided. d) Enter your Zip code. e) Select ???submit?? to go to the next page. 4. On the Create Account page, follow these steps: a) Create a Lookout username. This can???t be changed, so choose one you won???t forget. b) Create a password that???s at least six characters long, and that contains at least two numbers.Your password can be changed at any time. Confirm your password by entering it once more. c) Enter your email address. This will be used to alert you to new information. Confirm your email address by entering it once more. d) Enter your security question. This will be used if you forget your password. e) Enter your security answer. Confirm your security answer by entering it once more. f) Select ???submit?? to view your electronic medical record. If you have any questions about Lookout or your Access Code, please call for [place], for [place] or for [place]. If you need technical support, please e-mail [email or web address]. Remember, myD-H is NOT for urgent needs! Always dial 911 for medical emergencies. documented in this encounter Progress Notes * Theo Pantoja PA - 09/15/2011 7:42 AM EDT Case Date: 08/05/2011 Procedure Performed: right Total Hip Arthroplasty Surgeon: Samm Hoang MD Implants Used: Femoral Stem: DePuy [place], Size 10 STD offset Femoral Head: Biolox Delta ceramic, Size 32+1 Acetabulum: DePuy [place] Sector II Gription, Size 48mm Adjuvant screw fixation x 1 x 6.5mm (25mm) Liner: Altrx polyethylene, Size 48x32+4 neutral HPI: 61 yo female returns 4 weeks form her anterior MASOUD. She is doing remarkably well. She has no pain. She has been able to increase her actviity with little limitation. ROM and stability are not limiting. There is mild numbness about her incision. Her health has been stable aside from the hip. Nofever or symptoms of infection. She has not been using any assist but has been using a heel lift as her leg lengths feel unequal. Physical Exam: Well-appearing female in no acute distress. Alert and Oriented x 3 and answers all questions appropriately. The incision is well healed, with no signs of infection. Calves soft and nontender without edema. Able to straight leg raise without pain or lag. Hip Exam: Right Malik Hip Score: Less than 30 degrees of fixed flexion: Yes Less than 10 degrees of fixed adduction: Yes less than 10 degrees of fixed int rotation in extension: Yes Limb Length discrepancy: 2mm Motion: Total degrees of Flexion:90 Total degrees of Abduction:25 Total degrees of Ext Rotation: 25 Total degrees of Adduction: 0 Gait Abnormality: Normal Pulses Palpable: Right PT: Yes Right DP:Yes Motor/Sensory: Right Distal Motor: Normal Distal Sensory: Normal Hip Abductors 5 X-RAYS: Multiple radiographic views were obtained at my request and reviewed with the patient. X-rays show a well-placed prosthesis with no evidence of fracture or loosening. Alignment is near anatomic. No signs of complication. ASSESSMENT/PLAN: 4 weeks post-op and doing well. Continue weightbearing as tolerated and working onrange of motion, and we will see her back in 2 months for repeat examination. No x-rays will be needed at that time. Patient may return to normal activities as her pain and function allow. She'll continue her aspirin for 2 more weeks. We discussed the appropriate precautions surrounding dental prophylaxis. I stressed that she shouldavoid elective dental procedures for the first 6 months after surgery and then call the office for a prescription prior to any further dental work for the lifetime of the joint replacement. We also discussed maintaining good foot care and giving prompt attention to any source of infection throughout the body including foot ulcers and urinary tract infections. Signed: JENNY DAILEY 09/15/2011 documented in this encounter Plan of Treatment Not on file documented as of this encounter Visit Diagnoses Diagnosis S/P hip replacement- Primary Hip joint replacement by other means documented in this encounter Care Teams Lip And Gate Builder Relationship Specialty Start Date End Date None None PCP - General 07/27/11 07/04/18 documented as of this encounter
--- OUTSIDE RECORDS SUMMARY | 2024-02-06 10:00 | XMS_ITS | Encounter Summary ---
Author Organization [facility] Address [address] [place] [address] Care Team Providers Care Rn Observation Name Role Phone Unavailable Primary Care Provider Unavailabl e Encounter Details Date Type Department Care Team (Late st Contact Info) Description 01/23/2002 Results Only [facility] [address] [place] [address] Lorenzo Anton MD [address] [place], [place] [id number] Social History Tobacco Use Types Packs/Day Years [...] Priority Date/Time Associated Diagnosis Comments CYTOPATHOLOGY Routine 01/23/2002 0:00 EST documented in this encounter Results * CYTOPATHOLOGY (01/23/2002 0:00 EST) Pathology Report: CYTOPATHOLOGY REPORT Reports generated via electronic interface contain original data; however they are lacking the format of the original report. Caution should be taken when reading/interpreti ng unformatted reports. Name: ? DEBORAH MACIAS ? Accession #: ? [id number] : ? 1950 (Age: 51) ??F ?Collect Date: ? 01/23/2002 Location: ? [facility] ? Receive Date: ? 01/25/2002 Provider: ?Kenia ANTON MD Copy to: ? Specimen/Source: ?Conventional Pap Test, Vagina Last Menstrual Period: ? SPECIMEN ADEQUACY ? Satisfactory for Evaluation - assessment of transformation zone component not applicable ( e.g. atrophy, vaginal sample, hysterectomy) - scant squamous epithelial component GENERAL CATEGORIZATION ? Negative for Intraepithelial Lesion or Malignancy ? Document reviewed and electronically signed by: ? KELVIN Chung(ASCP) ? Report Date: ??01/30/2002 11:05 End of Report [facility] 01/23/2002 01/25/2002 Lorenzo Anton MD PATHOLOGY ORDERABLES Final Re ekta [facility] [address] [place] [address] documented in this encounter Visit Diagnoses Not on filedocumented in this encounter
--- OUTSIDE RECORDS SUMMARY | 2024-02-06 10:00 | XMS_ITS | Encounter Summary ---
Author Organization [facility] Address [address] [place] [address] Care Team Providers Care Cmm Technician Name Role Phone Unavailable Primary Care Provider Unavailabl e Encounter Details Date Type Department Care Team (Late st Contact Info) Description 06/11/2003 Results Only [facility] [address] [place] [address] Lorenzo Anton MD [address] [place], [place] [id number] Social History Tobacco Use Types Packs/Day Years [...] Priority Date/Time Associated Diagnosis Comments CYTOPATHOLOGY Routine 06/11/2003 0:00 EST documented in this encounter Results * CYTOPATHOLOGY (06/11/2003 0:00 EST) Pathology Report: CYTOPATHOLOGY REPORT Reports generated via electronic interface contain original data; however they are lacking the format of the original report. Caution should be taken when reading/interpreti ng unformatted reports. Name: ? DEBORAH MACIAS ? Accession #: ? [id number] : ? 1950 (Age: 53) ??F ?Collect Date: ? 06/11/2003 Location: ? [facility] ? Receive Date: ? 06/13/2003 Provider: ?Kenia ANTON MD Copy to: ? [facility] ?[address] ?[place], [place] [address] ? Specimen/Source: ?Conventional Pap Test, Vagina Last Menstrual Period: ? Treatment History: ? Hysterectomy ? SPECIMEN ADEQUACY ? Satisfactory for Evaluation - assessment of transformation zone component not applicable ( e.g. atrophy, vaginal sample, hysterectomy) GENERAL CATEGORIZATION ? Negative for Intraepithelial Lesion or Malignancy INTERPRETATION ? Glandular cells present status post hysterectomy. ? Document reviewed and electronically signed by: ? Dagmar Youngblood MD PhD ? Report Date: ??06/20/2003 13:23 End of Report [facility] 06/11/2003 06/13/2003 us Lorenzo Anton MD PATHOLOGY ORDERABLES Final Re sult [facility] [address] [place] [address] documented in this encounter Visit Diagnoses Not on filedocumented in this encounter
--- OUTSIDE RECORDS SUMMARY | 2024-02-06 10:00 | XMS_ITS | Encounter Summary ---
Author Organization [facility] Address [address] [place] [address] Care Team Providers Care Industrial Health Engineer Name Role Phone Unavailable Primary Care Provider Unavailabl e Encounter Details Date Type Department Care Team ([facility] st Contact Info) Description 10/27/2009 Results Only [facility] Laboratory Services - [facility] ([facility]) [address] [place], [place] [address] Rashi Loco, PRINTING MECHANIST [address] [place] [address] Social History Tobacco Use Types [...] Comments HPV DETECTION, HIGH RISK TYPES Routine 10/27/2009 14:20 EDT CYTOPATHOLOGY Routine 10/27/2009 0:00 EDT documented in this encounter Results * HUMAN PAPILLOMA VIRUS DNA TEST (10/27/2009 14:20 EDT) Specimen Description Cervix, ThinPrep vial [facility] Result Quantity not sufficient. [facility] Report Status Final 11/04/2009 [facility] 10/27/2009 14:2 0 EDT 11/04/2009 14:20 EDT Rashi Loco PRINTING MECHANIST MICROBIOLOGY - GENERAL ORDERABL ES Final Result [facility] [address] [place] [address] * CYTOPATHOLOGY (10/27/2009 0:00 EDT) Pathology Report: CYTOPATHOLOGY REPORT ? Reports generated via electronic interface contain original data; ? however they are lacking the format of the original report. ? Caution should be taken when reading/interpreti ng unformatted reports. ? Name: ? DEBORAH MACIAS ? Accession #: ? [id number] ? : ? 1950 (Age: 59) ??F ?Collect Date: ? 10/27/2009 ? Location: ? [facility] ? Receive Date: ? 10/29/2009 ? Provider: ?RASHI E KEVIN PRINTING MECHANIST ? Copy to: ? Specimen/Source: ?Pap Test, Cervix, ThinPrep Imaging System with manual ?? evaluation ? Last Menstrual Period: ? Other: ? HPVDX - HPV testing requested regardless of diagnosis on current ThinPrep Pap ?? test. ? SPECIMEN ADEQUACY ? Unsatisfactory for Evaluation ? - obscuring contamination, possibly lubricant, which precludes interpretation of 75% or more of the epithelial cells ? GENERAL CATEGORIZATION ? Specimen processed and examined, but unsatisfactory for evaluation of ? epithelial abnormality. ? Recommend repeat Pap test or further follow up, as clinically indicated. ? Document reviewed and electronically signed by: ? Yanet Rocha, SCT(ASCP) ? Report Date: ??11/03/2009 15:38 ? End of Report ? [facility] 10/27/2009 10/29/2009 us Rashi Loco PRINTING MECHANIST PATHOLOGY ORDERABLES Final Resu lt [facility] [address] [place] [address] documented in this encounter Visit Diagnoses Not on filedocumented in this encounter
--- OUTSIDE RECORDS SUMMARY | 2024-02-06 10:00 | XMS_ITS | Encounter Summary ---
Author Organization [facility] Address [address] [place] [address] Care Team Providers Care Death Surveys Coder Name Role Phone Lorenzo Anton MD Primary Care Provider [phone] Encounter Details Date Type Department Care Team (Late st Contact Info) Description 06/27/2019 Lab Requisition [facility] Pathology & Laboratory Medicine - [facility] [address] [place] [address] Priscilla Izaguirre PA [address] [place] [phone] Neoplasm of uncertain behavior of skin Social History Tobacco Use Types Packs/Day Years [...] Date/Time Associated Diagnosis Comments SURGICAL PATHOLOGY Today 06/27/2019 10 :30 EDT Neoplasm of uncertain behavior of skin documented in this encounter Results * SURGICAL PATHOLOGY (06/27/2019 10:30 EDT) Final Diagnosis A. SKIN OF EAR, LEFT HELIX, SHAVE BIOPSY: - Dermal fibrosis with telangiectasias. See microscopic. 06/28/2019 11:22 EDT [facility] at 1121 Attestation By the signature below, the attending physician certifies that they have 1) personally conducted a gross and/or microscopic examination of the described specimen(s), and/or personally interpreted the results of laboratory testing of the described specimen(s), and 2) personally rendered or confirmed the above diagnosis. 06/28/2019 11:22 [facility] at 1121 Microscopic Description Multiple levels are reviewed and show an effaced epidermis with underlying dermal fibrosis and telangiectasias. The features may represent a dermal scar. A neoplasm is not identified. 06/28/2019 11:22 T [facility] Clinical History [facility] vs other; clinical diagnosis code: D48.5 06/28/2019 11:22 [facility] Gross Description A. Received in formalin labelled with proper patient identification (initials M, H) and left helix is an irregular skin shave, 0.7 x 0.5 x 0.1 cm. The skin surface is dull waters. The margin is inked. Trisected and entirely submitted in A1. Carmela Montalvo 06/27/2019 16:53 06/28/2019 11:22 [facility] Scanned Images 06/28/2019 11:22 [facility] Tissue TISSUE SPECIMEN FROM SKIN / Unknown 06/27/2019 10:30 EDT 06/27/2019 16:48 EDT us Priscilla ALVARADO PATHOLOGY ORDERABLES Final Result [facility] [address] [place] [address] documented in this encounter Visit Diagnoses Diagnosis Neoplasm of uncertain behavior of skin documented in this encounter Care Teams Death Surveys Coder Relationship Specialty Start Date End Date Lorenzo Anton MD [address] [place] [address] PCP - General 02/09/15 documented as of this encounter
--- OUTSIDE RECORDS SUMMARY | 2024-02-06 10:00 | XMS_ITS | Encounter Summary ---
Author Organization [facility] [place] [address] Care Team Providers Care Spool Hauler Name Role Phone None Primary Care Provider Unavailabl e Encounter Details Date Type Department Care Team (Late st Contact Info) Description 08/20/2013 [place] [phone] Augusta Archibald, RN Social History Tobacco Use Types Packs/Day [...] encounter Miscellaneous Notes * Telephone Encounter - Augusta Mansfield RN - 08/20/2013 2:57 PM EDT TELEPHONE NOTE Responsible Provider: BENEDICT Caller: Deborah Reason for call: Deborah reports that her pain is gone. Requesting a letter for [employer] stating that she can wear [employer] shoes for working. Assessment: Needs provider review. Plan/Instructions: documented in this encounter Plan of Treatment Not on file documented as of this encounter Visit Diagnoses Not on filedocumented in this encounter Care Teams Spool Hauler Relationship Specialty Start Date End Date None None PCP - General 07/27/11 07/04/18 documented as of this encounter
--- OUTSIDE RECORDS SUMMARY | 2024-02-06 10:00 | XMS_ITS | Encounter Summary ---
Author Organization [facility] Address [address] [place] [address] Care Team Providers Care Ukrainian Folk Arts Instructor Name Role Phone Unavailable Primary Care Provider Unavailabl e Encounter Details Date Type Department Care Team (Late st Contact Info) Description 10/24/2008 Orders Only [facility] Laboratory Services - [facility] ([facility]) [address] [place], [place] [address] Rashi Loco, COAGULATING BATH MIXER [address] [place] [address] Social History Tobacco Use Types [...] Comments HPV DETECTION, HIGH RISK TYPES Routine 10/24/2008 11:57 EDT CYTOPATHOLOGY Routine 10/24/2008 0:00 EDT documented in this encounter Results * HUMAN PAPILLOMA VIRUS DNA TEST (10/24/2008 11:57 EDT) Specimen Description Cervix, ThinPrep vial [facility] Result Negative for HPV types 16, 18, 31, 33, 35, 39, 45, 51, 52, 56, 58, 59, and 68. [facility] Report Status Final 11/05/2008 [facility] 10/24/2008 11:5 7 EDT 10/30/2008 11:57 EDT us Rashi Loco COAGULATING BATH MIXER MICROBIOLOGY - GENERAL ORDERABL ES Final Result [facility] [address] [place] [address] * CYTOPATHOLOGY (10/24/2008 0:00 EDT) Pathology Report: CYTOPATHOLOGY REPORT ? Reports generated via electronic interface contain original data; ? however they are lacking the format of the original report. ? Caution should be taken when reading/interpreti ng unformatted reports. ? Name: ? DEBORAH MACIAS ? Accession #: ? [id number] ? : ? 1950 (Age: 58) ??F ?Collect Date: ? 10/24/2008 ? Location: ? [facility] ? Receive Date: ? 10/28/2008 ? Provider: ?RASHI E KEVIN COAGULATING BATH MIXER ? Copy to: ? Specimen/Source: ?Pap Test, Vagina, ThinPrep Imaging System with manual ?? evaluation ? Last Menstrual Period: ? Treatment History: ? Hysterectomy: 2001 ? Other: ? HPVDX - HPV testing requested regardless of diagnosis on current ThinPrep Pap ?? test. ? SPECIMEN ADEQUACY ? Satisfactory for Evaluation ? - assessment of transformation zone component not applicable ( e.g. atrophy, ? vaginal sample, hysterectomy) ? GENERAL CATEGORIZATION ? Negative for Intraepithelial Lesion or Malignancy ? Document reviewed and electronically signed by: ? Antonieta Bud, CT(ASCP) ? Report Date: ??10/29/2008 16:17 ? End of Report ? [facility] 10/24/2008 10/28/2008 us Rashi Loco COAGULATING BATH MIXER PATHOLOGY ORDERABLES Final Resu lt [facility] [address] [place] [address] documented in this encounter Visit Diagnoses Not on filedocumented in this encounter
--- OUTSIDE RECORDS SUMMARY | 2024-02-06 10:00 | XMS_ITS | Encounter Summary ---
[facility] Address [facility] [place] [address] Care Team Providers Care Fire Equipment Repairer Inspector Name Role Phone None Primary Care Provider Unavailabl e Encounter Details Date Type Department Care Team (Latest Contact Info) Description 09/14/2011 2:49 PM EDT - 09/14/2011 11:59 PM EDT Hospital Encounter XRay at [address] [place] [address] DJD (degenerative joint disease) of hip Social History Tobacco Use Types Packs/Day Years Used Date Smoking Tobacco: Never Smokeless Tobacco: Never Alcohol Use Standard Drinks/Week Comments No 0 (1 standard drink = 0.6 oz pur e alcohol) Sex and Gender Information Value Date Recorded Sex Assigned at Not on file Gender Identity Not on file Sexual Orientation Not on file documented as of this encounter Medications at Time of Discharge Medication Sig Dispensed Refills Start Date End Date acetaminophen (TYLENOL) 500 mg tablet Take 2 tablets by mouth every 8 hours as needed for Pain. 08/06/2011 aspirin 325 mg EC tablet Take 325 mg by mouth daily. 06/27/2018 multivitamin (THERAGRAN) tablet Take 1 tablet by mouth daily. 06/27/2018 VITAMIN B COMPLEX ORAL Take 1 tablet by mouth daily. 07/05/2018 BLACK COHOSH ORAL Take 1 tablet by mouth daily. 06/27/2018 FLAXSEED ORAL by Misc.(Non-Drug; Combo Route) route. 06/27/2018 EVENING PRIMROSE OIL (EVENING PRIMROSE ORAL) Take by mouth. RED YEAST RICE ORAL Take by mouth. 2018 lovastatin (MEVACOR) 20 mg tablet Take 20 mg by mouth nightly. 06/27/2018 GLUCOSAMINE HCL (GLUCOSAMINE, BULK, MISC) by Misc.(Non-Drug; Combo Route) route. 07/05/2018 ERGOCALCIFEROL, VITAMIN D2, (VITAMIN D ORAL) Take by mouth. 06/27 ASCORBATE CALCIUM (VITAMIN C ORAL) Take by mouth. 9 documented as of this encounter Plan of Treatment Not on file documented as of this encounter Procedures Procedure Name Priority Date/Time Associated Diagnosis Comments XR PELVIS AND LATERAL HIP Routine 09/14/2011 3:09 PM EDT documented in this encounter Results * XR PELVIS AND LATERAL HIP (09/14/2011 3:09 PM EDT) Anatomical Region Laterality Modality Pelvis, Hip N/A Radiographic Lorie ging 09/14/2011 3:09 PM EDT Narrative 09/14/2011 5:03 PM EDT Examination PELVIS+LATERAL HIP/RIGHT Clinical History Reason for exam and clinical history: fu R MASOUD; To be done at postoperative follow up; Comparison 08/05/2011. Technique AP pelvis with lateral right hip. Findings The patient is status post total hip arthroplasty. ??Previously seen soft tissue gas has resolved. ??There is no change in the appearance of the arthroplasty. ?? No acute complication is seen. Impression Right total hip arthroplasty without complication. Procedure Note Chet Nunez MD - 09/14/2011 Examination PELVIS+LATERAL HIP/RIGHT Clinical History Reason for exam and clinical history: fu R MASOUD; To be done atpostoperative follow up; Comparison 08/05/2011. Technique AP pelvis with lateral right hip. Findings The patient is status post total hip arthroplasty. Previously seen softtissue gas has resolved. There is no change in the appearance of thearthroplasty. No acute complication is seen. Impression Right total hip arthroplasty without complication. Samm Hoang MD IMG DX ORDERABLES documented in this encounter Visit Diagnoses Diagnosis DJD (degenerative joint disease) of hip Osteoarthrosis, unspecified whether generalized or localized, pelvic region and thigh documented in this encounter Care Teams Fire Equipment Repairer Inspector Relationship Specialty Start Date End Date None None PCP - General 07/27/11 07/04/18 documented as of this encounter
--- OUTSIDE RECORDS SUMMARY | 2024-02-06 10:00 | XMS_ITS | Encounter Summary ---
Author Organization [facility] Address [address] [place] [address] Care Team Providers Care Medicaid Service Coordinator Name Role Phone Lorenzo Anton MD Primary Care Provider [phone] Encounter Details Date Type Department Care Team (Late st Contact Info) Description 12/28/2022 Lab Requisition [facility] Pathology & Laboratory [facility] - [facility] [address] [place] [address] Barbara Wright, ADDICTION NURSE [address], [place] [id number] Encounter for gynecological examination (general) (routine) without abnormal findings; Encounter for screening for malignant neoplasm of cervix Social History Tobacco Use Types Packs/Day Years [...] Name Priority Date/Time Associated Diagnosis Comments PAP TEST Today 12/26/2022 8:30 EDT Encounter for gynecological examination (general) (routine) without abnormal findings Encounter for screening for malignant neoplasm of cervix HPV DNA DETECTION WITH GENOTYPING, PCR Today 12/26/2022 8:30 EDT Encounter for gynecological examination (general) (routine) without abnormal findings Encounter for screening for malignant neoplasm of cervix documented in this encounter Results * HUMAN PAPILLOMAVIRUS (HPV) DETECTION-HIGH RISK TYPES (12/26/2022 8:30 EDT) HPV other High Risk types, PCR Negative Negative 01/05/2023 14:39 T [facility] Comment:No E6 or E7 mRNA is detected from HPV types 16,18,31,33,35,39,45,51,52,56,58,59,66, and 68 by back shoe cutter mediated amplification. Pap Test CERVIX UTERI STRUCTURE / Unknown 12/26/2022 8:30 EDT 01/04/2023 14:10 EDT us Barbara Wright NP MICROBIOLOGY - GENERAL ORDER LISSETH Final Result [facility] [address] [place] [address] * PAP TEST (12/26/2022 8:30 EDT) Specimens A. Cervix and/or Endocervix , ThinPrep Imaging System with Manual Evaluation 01/05/2023 14:39 [facility] Specimen Adequacy Satisfactory for Evaluation - assessment of transformation zone component not applicable ( e.g. atrophy, vaginal sample, hysterectomy) Scant squamous epithelial component due to contaminant, possibly lubricant or other vaginal contaminant. 01/05/2023 14:39 T [facility] General Categorization Negative for intraepithelial lesion or malignancy 01/05/2023 14:39 [facility] Attestation . 01/05/2023 14:39 [facility] at 1439 Clinical History See below 01/06/20 23 14:39 [facility] HPV The result for the Human Papillomavirus (HPV) Detection-High Risk Types is Negative. No E6 or E7 mRNA is detected from HPV types 16,18,31,33,35,39 ,45,51,52,56,58,5 9,66, and 68 by back shoe cutter mediated amplification.Casi ting was performed on specimen [id number] and was resulted on 01/05/2023 1439 EDT by DELTA, LAB INSTRUMENT RESULTS IN 01/05/2023 14:39 EDT [facility] Performing Lab [facility] 01/05/2023 14:39 EDT [facility] Scanned Images 01/05/2023 14:39 EDT [facility] Pap Test CERVIX UTERI STRUCTURE / Unknown 12/26/2022 8:30 EDT 12/28/2022 10:15 EDT us Barbara Wright NP PATHOLOGY ORDERABLES Final R esult [facility] [address] [place] [address] documented in this encounter Visit Diagnoses Diagnosis Encounter for gynecological examination (general) (routine) without abnormal findings Encounter for screening for malignant neoplasm of cervix Screening for malignant neoplasm of the cervix documented in this encounter Care Teams Medicaid Service Coordinator Relationship Specialty Start Date End Date Lorenzo Anton MD [address] [place] [address] PCP - General 02/09/15 documented as of this encounter
--- OUTSIDE RECORDS SUMMARY | 2024-02-06 10:00 | XMS_ITS | Encounter Summary ---
[place] [address] Care Team Providers Care Collision Mechanic Name Role Phone Barbara Wright APRN Primary Care Provider [phone] Reason for Referral * Consultation (Routine) - Closed Specialty Diagnoses / Procedures Referred By Rodriguez brantley Referred To Contact Dermatology Diagnoses History of SCC (squamous cell carcinoma) of skin Barbara Wright APRN [address] [place] [id number] [facility] D[facility]at[facility] [address] [place] [address] Referral ID Status Reason Start Date Expiration Date V isits Requested Visits Authorized [id number] Closed Consult, Test & Treat PCP Updated and/or Approved 02/24/2022 02/24/2023 6 6 Encounter Details Date Type Department Care Team (Late st Contact Info) Description 02/24/2022 Transcribe Orders eD Incoming Referrals [phone] Barbara Wright APRN [address] [place] [phone] History of SCC (squamous cell carcinoma) of skin Social History Tobacco Use Types [...] as of this encounter Plan of Treatment Scheduled Referrals Name Type Priority Associated Diagnoses Order Schedule Referral to Dermatology Outpatient Referral Routine History of SCC (squamous cell carcinoma) of skin Ordered: 02/24/2022 documented as of this encounter Visit Diagnoses Diagnosis History of SCC (squamous cell carcinoma) of skin Personal history of other malignant neoplasm of skin documented in this encounter Care Teams Collision Mechanic Relationship Specialty Start Date End Date Barbara Wright, INSTRUCTOR PILOT [address] [place] [id number] PCP - General Family Medicine 02/24/22 documented as of this encounter
--- OUTSIDE RECORDS SUMMARY | 2024-02-06 10:00 | XMS_ITS | Encounter Summary ---
Author Organization [facility] Address [address] [place] [address] Care Team Providers Care Calender Operator Name Role Phone Unavailable Primary Care Provider Unavailabl e Encounter Details Date Type Department Care Team (Late st Contact Info) Description 01/16/2001 Results Only [facility] [address] [place] [address] Lorenzo Anton MD [address] [place], [place] [id number] Social History Tobacco Use Types Packs/Day Years [...] Priority Date/Time Associated Diagnosis Comments CYTOPATHOLOGY Routine 01/16/2001 0:00 EST documented in this encounter Results * CYTOPATHOLOGY (01/16/2001 0:00 EST) Pathology Report: CYTOPATHOLOGY REPORT Reports generated via electronic interface contain original data; however they are lacking the format of the original report. Caution should be taken when reading/interpreti ng unformatted reports. Name: ? DEBORAH MACIAS ? Accession #: ? [id number] : ? 1950 (Age: 50) ??F ?Collect Date: ? 01/16/2001 Location: ? [facility] ? Receive Date: ? 01/18/2001 Provider: ?L MARY ANTON MD Copy to: ? Specimen/Source: ?ThinPrep Pap Test, Cervix/Endocervix Last Menstrual Period: ? 04/11/00 Other: ? Client ID#: [id number] ? SPECIMEN ADEQUACY ? Satisfactory for evaluation. GENERAL CATEGORIZATION ? Within Normal Limits ? Document reviewed and electronically signed by: ? KELVIN Samaniego(ASCP) ? Report Date: ??01/22/2001 13:58 End of Report [facility] 01/16/2001 01/18/2001 us Lorenzo Anton MD PATHOLOGY ORDERABLES Final Re ekta [facility] [address] [place] [address] documented in this encounter Visit Diagnoses Not on filedocumented in this encounter
--- OUTSIDE RECORDS SUMMARY | 2024-02-06 10:00 | XMS_ITS | Clinical Summary ---
Author Organization [facility] Address [facility] [place] [address] Care Team Providers Care Behavioral Health Therapist Name Role Phone Barbara Wright APRN Primary Care Provider [phone] Allergies Active Allergy Reactions Criticality Noted Date Comments Alcohol 07/05/2011 migraine Chocolate Flavor 07/05/2011 Migraine Medications Medication Sig Dispensed Refills Start Date End Date Status acetaminophen (TYLENOL) 500 mg tablet Take 2 tablets by mouth every 8 hours as needed for Pain. 08/06/2011 Active Additional Information Patient not taking.Reported on 06/27/2018 atorvastatin (LIPITOR) 20 mg Tablet TAKE 1 TABLET BY MOUTH DAILY 3 03/09/2018 Active aspirin 81 mg Tablet, Delayed Release (E.C.) Take 81 mg by mouth daily. Active Active Problems Problem Noted Date Diagnosed Date S/P hip replacement 09/15/2011 Overview (09/15/2011): Case Date: 08/05/2011 Procedure Performed: right Total Hip Arthroplasty Surgeon: Samm Hoang MD Implants Used: Femoral Stem: DePuy Corail, Size 10 STD offset Femoral Head: Biolox Delta ceramic, Size 32+1 Acetabulum: DePuy Dorset Sector II Gription, Size 48mm Adjuvant screw fixation x 1 x 6.5mm (25mm) Liner: Altrx polyethylene, Size 48x32+4 neutral Hyperlipidemia 07/10/2011 Resolved Problems Problem Noted Date Diagnosed Date Resolved Date DJD (degenerative joint dise ase) of hip s/p MASOUD 08/0407/10/2011 09/15/2011 Family History Medical History Relation Comments Alcohol Use Disorder Maternal Uncle Anesthesia Reaction Neg Hx Relation Status Comments Maternal Uncle Social History Tobacco Use Types Packs/Day Years Used Date Smoking Tobacco: Never Smokeless Tobacco: Never Alcohol Use Standard Drinks/Week Comments No 0 (1 standard drink = 0.6 oz pur e alcohol) Sex and Gender Information Value Date Recorded Sex Assigned at Not on file Gender Identity Not on file Sexual Orientation Not on file Last Filed Vital Signs Vital Sign Reading Time Taken Comments Blood Pressure 121/73 07/05/2018 9:39 AM EDT Pulse 59 07/05/2018 9:39 AM EDT Temperature 36.7 ??C (98.1 ??F) 08/06/2011 11:36 AM E DT Respiratory Rate 14 08/06/2011 11:36 AM EDT Oxygen Saturation 97% 08/06/2011 11:36 AM EDT Inhaled Oxygen Concentration - - Weight 49.2 kg (108 lb 8 oz) 09/14/2011 3:45 PM EDT Height 153.7 cm (5' 0.5) 09/14/2011 3:45 PM EDT Body Mass Index 20.84 09/14/2011 3:45 PM EDT Plan of Treatment Health Maintenance Due Date Last Done Comments CT Colonography 1950 Colonoscopy 1950 Colorectal Cancer Screening 1950 FIT DNA 1950 FIT 1950 Sigmoidoscopy (10 year) with FIT yearly 1950 Sigmoidoscopy 1950 Hepatitis C Screening 01/27/1970 Tetanus/Diphtheria/Pertussis Vaccines (1 - Tdap) 01/27 Breast Cancer Share Decision Needed 1992 Breast Cancer screening 1992 Zoster vaccine (1 of 2) 01/27/2002 Bone Density Scan 01/27/2017 Pneumoccocal Vaccine: 65+ (1 of 1 - PCV) 01/27/2017 Covid-19 Vaccine (1 - 2023- season) 2023 Influenza (Flu) vaccine (1 o f 1 - Influenza standard series) 11/19/2023 Medical Devices Implanted Type Area Sandblaster Glass Device Identifier Shelf Expiration Date Model / Serial / Lot Cup,Actbr,Grpt n,Sector,48mm ([id number]) (Autoreq) - [id number] Implanted:Qty: 1 on 08/05/2011 at [facility] IMPLANTS DO NOT USE DepUdemyTool Sharpener - 3527 05/17/2021 [id number] Liner,Actbr,+4 mm,Ntrl,32x48m m ([id number]) (Autoreq) - [id number] Implanted:Qty: 1 on 08/05/2011 at [facility] IMPLANTS DO NOT USE Depuy Tool Sharpener - 3527 07/17/2016 8 / / [id number] Screw,Cacls,Pn ncl,6.5x25mm ([id number]) (Autoreq) - [id number] Implanted:Qty: 1 on 08/05/2011 at [facility] IMPLANTS DO NOT USE Depuy Tool Sharpener - 3527 07/17/2016 0 / / [id number] Stem,Fmrl,Clrd ,10,135deg,140 mm ([id number]) (Autoreq) - [id number] Implanted:Qty: 1 on 08/05/2011 at [facility] IMPLANTS DO NOT USE Depuy Tool Sharpener - 3527 09/16/2014 [id number] / / [id number] Head,Fmrl,+1mm ,12-14,32mm ([id number]) (Autoreq) - [id number] Implanted:Qty: 1 on 08/05/2011 at [facility] IMPLANTS DO NOT USE Depuy Tool Sharpener - 3527 04/19/2016 0 / / [id number] Advance Directives Documents on File Type Date Recorded Patient Senior Payroll Administrator Expl anation Advance Directives and Cherryin g Will 08/05/2011 3:18 PM * Full Code (Latest Code Status on File) Date Activated Date Inactivated Comments 08/05/2011 5:58 PM 08/06/2011 8:05 PM Care Teams Behavioral Health Therapist Relationship Specialty Start Date End Date Barbara Wright APRN [address] [place] [address] PCP - General Family Medicine 02/24/22
--- OUTSIDE RECORDS SUMMARY | 2024-02-06 10:01 | XMS_ITS | Encounter Summary ---
Author Organization [facility] [place] [address] Care Team Providers Care Functional Mental Disability Teacher Name Role Phone None Primary Care Provider Unavailabl e Reason for Visit * Reason Comments Right Hip Pain Encounter Details Date Type Department Care Team (Late st Contact Info) Description 07/27/2011 12:15 PM EDT Office [place] [phone] Samm Hoang MD [facility] [place] [address] DJD (degenerative joint disease) of hip (Primary Dx) Discharge Disposition: Home Social History [...] Sign Reading Time Taken Comments Blood Pressure 106/72 07/27/2011 12:34 PM EDT Pulse 56 07/27/2011 12:34 PM EDT Temperature - - Respiratory Rate - - Oxygen Saturation - - Inhaled Oxygen Concentration - - Weight 49.2 kg (108 lb 8 oz) 07/27/2011 12:34 PM EDT Height 153.7 cm (5' 0.5) 07/27/2011 12:34 PM ED T Body Mass Index 20.84 07/27/2011 12:34 PM EDT documented in this encounter Progress Notes * Samm Hoang MD - 07/27/2011 1:04 PM EDT I.D.: Deborah Macias is a 61 y.o. year old female being seen today to discuss the possibility of a RIGHT total hip arthroplasty. Her history and physical exam were reviewed in detail. The H&P from her primary care physician along with all testing were similarly reviewed. DIAGNOSIS: Primary diagnosis of affected hip: OA. Condition of contralateral hip: neg Ipsilateral knee: neg. Contralateral knee: neg. Spine: OA. Prior surgery on this joint: No. Previous surgey on contralateralhip: No. Allergies to metals: none known. Hip pain reported: severe. Thigh pain: moderate. Limp:moderate. Ambulatory capacity: 6 blocks. Assistive devices used for walking: none. Stairs climbing ability: 2/ with bannister. Shoes and socks: with great difficulty. Sitting ability: elevated levels only. Ability to use public transportation: able. SIGNIFICANT MEDICAL COMORBIDITIES: Patient Active Problem List Diagnoses Code ??? DJD (degenerative joint disease) of hip 715.95U ??? Hyperlipidemia 272.4S VITALS: BP Readings from Last 1 Encounters: 07/27/11 106/72 Pulse Readings from Last 1 Encounters: 07/27/11 56 Height: 153.7 cm (5' 0.5) Weight - Scale: 49.215 kg (108 lb 8 oz) Body mass index is 20.84 kg/(m^2). FOCUSED PHYSICAL EXAM: Gait: Antalgic Contractures/Deformities: Less than 30 degrees of fixed flexion: Yes Less than 10 degrees of fixed adduction: Yes less than 10 degrees of fixed int rotation in extension: Yes Limb Length discrepancy: 0.5cm Deformity: none Motion: Total degrees of Flexion:70 Total degrees of Extension: 0 Total degrees of Abduction:15 Total degrees of Adduction: 15 Total degrees of Ext Rotation: 25 Total degrees of Int Rotation: 0 Skin Integrity: Normal Pulses Palpable: Right PT: Yes. Right DP:Yes. Motor/Sensory: Distal Motor: Normal Distal Sensory: Normal Hip Abductors: 5 Trendelenburg: neg RADIOGRAPHIC ANALYSIS: Together, we reviewed the preop radiographs obtained previously. Radiographic evidence of joint damage: 4= large osteophytes, marked narrowing, obvious deformity [0= normal; 1=minimal ; 2= some osteophytes , some narrowing ; 3= moderate osteophytes, significantnarrowing, mild deformity; 4= large osteophytes, marked narrowing, obvious deformity]: RELEVANT LAB STUDIES: Lab Results Component Value Date WBC 3.9* 07/05/2011 HGB 13.7 07/05/2011 HCT 40.5 07/05/2011 PLATELET 217 07/05/2011 CREATININE 0.71 07/05/2011 BUN 28* 07/05/2011 NA 145 07/05/2011 K 4.1 07/05/2011 CRP 0.6 07/05/2011 SEDRATE 19 07/05/2011 INR 1.0 07/05/2011 Estimated GFR: 62.9 ml/min (based on Cr of .71). MEDICAL DECISION-MAKING: I indicated that in my opinion, the treatment option most likely to restore a more normal, pain-free level of function would be joint replacement. I used total hip implants to demonstrate for them how we perform the procedure and all of their questions were answered. Ms. Macias expressed a desire to pursue this option. We then proceeded to discuss in great detail the risks associated with the proposed surgery. These included but were not limited to: bleeding (which may or may not require transfusion), infection, deep venous thrombosis, pulmonary embolus, prosthetic failure, loosening, prosthetic fracture, femur or pelvic fracture, dislocation, leg-length inequality, persistent pain, medical complications (including cardiac, respiratory and neurologic complications), anaesthetic complications, and . The patient seemed to understand the nature of this procedure's risks. We also discussed the likely benefit of improved stride length, improved range of motion, decreased pain, decreased need for pain medications and decrease functional limitations. The patient is aware that it would take on average three to four days in the hospital, followed by approximately 12-18 months to full rehabilitation. We discussed DNR status and the patient is a full code. We also reviewed their preferences regarding use of blood products and confirmed that while we would endeavor to minimize the risks of needing any transfusions, if circumstances were such that one ormore were indeed required, she did NOT refuse. Further questions were solicited from the patient and answered in great detail. Again, despite these risks, the verbalized a desire to proceed accordingly. Informed consent was subsequently obtained for a RIGHT total hip arthroplasty. We also reviewed options for postoperative DVT prophylaxis, based on AAOS guidelines. We discussed the pros and cons of ASA vs. Coumadin in terms of effectiveness and clot / embolus preventions vs. Risks of bleeding and wound complications. My review of the patient's risk factors leads me to believe that they are at standard risk of developing a DVT but are at increased risk of postop bleeding / or the consequences of postop bleeding could be dire. Hence, my recommendation was for ASA 325mg PO BID x 6 weeks as our postoperative prophylactic agent. I discussed with them the possible discharge scenarios including going home versus needing to go toa rehab facility. We will make that determination after seeing how well her mobilization is progressing. I ensured that the patient has the needed samples of hibiclens wash to use both the night before and the morning of the anticipated surgery. Please note that 20 minutes of this 30-minute patient encounter was spent on [id number] counseling regarding the patient's diagnosis, its etiology, the multiple treatment options available, and therisks and benefits of each thereof. In particular, considerable time spent discussing surgical plan, techniques as well as implant related issues. documented in this encounter Plan of Treatment Not on file documented as of this encounter Visit Diagnoses Diagnosis DJD (degenerative joint disease) of hip- Primary Osteoarthrosis, unspecified whether generalized or localized, pelvic region and thigh documented in this encounter Care Teams Functional Mental Disability Teacher Relationship Specialty Start Date End Date None None PCP - General 07/27/11 07/04/18 documented as of this encounter
--- OUTSIDE RECORDS SUMMARY | 2024-02-06 10:01 | XMS_ITS | Encounter Summary ---
[place] [address] Care Team Providers Care Ordnance Handler Name Role Phone None Primary Care Provider Unavailabl e Encounter Details Date Type Department Care Team (Late st Contact Info) Description 07/27/2011 2:00 PM EDT Office [place] [address] Social History Tobacco Use Types Packs/Day Years [...] on filedocumented in this encounter Care Teams Ordnance Handler Relationship Specialty Start Date End Date None None PCP - General 07/27/11 07/04/18 documented as of this encounter
--- OUTSIDE RECORDS SUMMARY | 2024-02-06 10:01 | XMS_ITS | Encounter Summary ---
[facility] [place] [place] [address] Care Team Providers Care Laborer Tree Tapping Name Role Phone Unknown Primary Care Provider Unavailabl e Encounter Details Date Type Department Care Team (Late st Contact Info) Description 06/15/2011 Orders Only [place] [address] Samm Hoang MD [facility] [address] [place] [address] Social History Tobacco Use Types Packs/Day Years Used Date Smoking Tobacco: Never Assessed Sex and Gender Information Value Date Recorded Sex Assigned at Not on file Gender Identity Not on file Sexual Orientation Not on file documented as of this encounter Plan of Treatment Not on file documented as of this encounter Visit Diagnoses Not on filedocumented in this encounter Care Teams Laborer Tree Tapping Relationship Specialty Start Date End Date Unknown None PCP - General 06/03/11 07/26/11 documented as of this encounter
--- OUTSIDE RECORDS SUMMARY | 2024-02-06 10:01 | XMS_ITS | Encounter Summary ---
Author Organization [facility] [place] [address] Care Team Providers Care Conduit Cleaner Name Role Phone Unknown Primary Care Provider Unavailabl e Reason for Visit * Reason Comments Right Hip Pain Encounter Details Date Type Department Care Team (Late st Contact Info) Description 07/05/2011 12:20 PM EDT Office [place] [id number] Samm Cornejo MD [facility] [place] [address] DJD (degenerative joint disease) of hip (Primary [...] Sign Reading Time Taken Comments Blood Pressure 92/68 07/05/2011 1:09 PM EDT Pulse 64 07/05/2011 1:09 PM EDT Temperature - - Respiratory Rate - - Oxygen Saturation - - Inhaled Oxygen Concentration - - Weight 49.9 kg (110 lb) 07/05/2011 1:09 PM EDT Height 153.7 cm (5' 0.5) 07/05/2011 1:09 PM EDT Body Mass Index 21.13 07/05/2011 1:09 PM EDT documented in this encounter Progress Notes * Samm Cornejo MD - 07/10/2011 9:38 PM EDT I.D.: Adelia Macias is a 61 y.o. year old female being seen today to discuss her painful RIGHT hip. Her history and physical exam were reviewed in detail. Referred by her friend, Mable Barbosa, a patient of mine, for whom we did an anterior MASOUD. 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 No specific injury per se, but has always been hard on her body. Now forced into concessions due to hip pain, depe in groin, radiates down anteromedial aspect of thigh to knee but not beyond. Worst with WB activities, partially relieved at rest. PM pains now also. Difficulty with shoes and socks, low levels seats, car, etc. Understands potential benefits of MASOUD and feels wants same. 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 DIAGNOSIS: Condition of contralateral hip: mild OA Ipsilateral knee: neg. Contralateral knee: neg. Spine: neg.Prior surgery on this joint: No. Previous surgey on contralateral hip: No. Allergies to metals: none known. Hip pain reported: severe. Thigh pain: moderate. Limp:moderate. Ambulatory capacity: 3 blocks. Assistive devices used for walking: none. Stairs climbing ability: 2/1 with bannister. Shoes and socks: with difficulty. Sitting ability: elevated levels. Ability to use public transportation: able. SIGNIFICANT MEDICAL COMORBIDITIES: Patient Active Problem List Diagnoses Code ??? DJD (degenerative joint disease) of hip 715.95U ??? Hyperlipidemia 272.4S VITALS: BP Readings from Last 1 Encounters: 07/05/11 92/68 Pulse Readings from Last 1 Encounters: 07/05/11 64 Height: 153.7 cm (5' 0.5) Weight - Scale: 49.896 kg (110 lb) Body mass index is 21.13 kg/(m^2). FOCUSED PHYSICAL EXAM: Gait: Antalgic Contractures/Deformities: Less than 30 degrees of fixed flexion: Yes Less than 10 degrees of fixed adduction: Yes less than 10 degrees of fixed int rotation in extension: Yes Limb Length discrepancy: 0.5cm Deformity: none Motion: Total degrees of Flexion:75 Total degrees of Extension: 10 Total degrees of Abduction:20 Total degrees of Adduction: 10 Total degrees of Ext Rotation: 25 Total [...] a desire to pursue this option. We did also review the pure elective nature of this intervention, timing of which should be guided by their own sense of symptom severity and impact on lifestyle. Conservative, nonoperative measures also reviewed though she was clearly not interested in same. We then proceeded to discuss in great [...] aware that it would take on average 1-2 days in the hospital, followed by approximately 12-18 months to full rehabilitation. This all seems very agreeable to her and she is excited to pursue same. Will seek out medical clearance and undergo needed testing to ensure medical suitability. We will plan to meet again prior to potential surgery date, review testing and formulate definitive decisions at that time. Please note that 35 minutes of this 45-minute patient encounter was spent on [id number] counseling regarding the patient's diagnosis, its etiology, the multiple treatment options available, and therisks and benefits of each thereof. In particular, considerable time spent discussing surgical plan, techniques as well as implant related issues. documented in this encounter Plan of Treatment Not on file documented as of this encounter Procedures Procedure Name Priority Date/Time Associated Diagnosis Comments TOTAL HIP ARTHROPLASTY, ANTERIOR APPROACH Routine 07/05/2011 1:58 PM EDT DJD (degenerative joint disease) of hip documented in this encounter Results * XR chest routine PA & lateral (07/05/2011 3:52 PM EDT) Anatomical Region Laterality Modality Chest N/A Radiographic Lorie ging 07/05/2011 3:52 PM EDT Impressions 07/06/2011 9:11 AM EDT IMPRESSION: ?? Suspect COPD. No acute cardiopulmonary disease seen. ?? Narrative 07/06/2011 9:11 AM EDT PA AND LATERAL CHEST: HISTORY: ??Preop for hip surgery. ?? DESCRIPTION: ??No prior study available for comparison. Hemidiaphragms are flattened and the pulmonary vascular markings in the upper lung zones are attenuated, findings suggesting COPD. The heart is normal in size. The lungs are clear of acute changes. ?? Procedure Note Shyam Torre MD - 07/06/2011 PA AND LATERAL CHEST: HISTORY: Preop for hip surgery. DESCRIPTION: No prior study available for comparison. Hemidiaphragms are flattened and the pulmonary vascular markings in the upper lung zones are attenuated, findings suggesting COPD. The heart is normal in size. Thelungs are clear of acute changes. IMPRESSION IMPRESSION: Suspect COPD. No acute cardiopulmonary disease seen. Samm Cornejo MD IMG DX ORDERABLES * Urine culture Clean Catch Urine (07/05/2011 3:38 PM EDT) Urine Culture ? Patient Name: ADELIA MACIAS ? Ordered By: SAMM CORNEJO ? MR#: [id number] ?LOC: ??4V ? /Sex: ??1950 (61 years), ? Female ? PROCEDURE: Urine Culture ?SOURCE: U CC ? COLLECTED: 07/05/2011 15:38 ? STARTED: 07/05/2011 15:58 ? FINAL REPORT ? Final Report ? Verified: 15:29 ? 1,000-9,000 cfu/ml Gram Negative Rods ? ___ ? ___ [facility]ERNER MILLENNIUM Urine specimen obtained by clean catch procedure (specimen) 07/05/2011 3:38 PM EDT 07/05/2011 3:58 PM EDT Narrative Resulting Agency Comment Spec In Lab Samm Cornejo MD MICROBIOLOGY - GENER AL ORDERABLES CERNER DIANNENNIUM * Urinalysis with microscopic (07/05/2011 3:38 PM EDT) Glucose, Urine Dipstick Negative Negative mg/dL [facility]ERN[facility] MILLENNIUM Protein, Urine Dipstick Negative mg/dL [facility]ERN[facility] MILLENNIUM Bilirubin, Urine Dipstick Negative Negative mg/dL [facility]ERN[facility] MILLENNIUM Urobilinogen, Urine Dipstick Normal mg/dL CERN[facility] MILLENNIUM pH, Urn (dipstick) 6.0 5.0 - 8.0 CERNER MILLENNIUM Blood, Urine Dipstick Negative mg/dL CERN[facility] MILLENNIUM Ketone, Urine Dipstick Negative mg/dL [facility]ERN[facility] MILLENNIUM Nitrite, Urine Dipstick Negative [facility]ERNER MILLENNIUM Leukocytes, Urine Dipstick Negative mcL CERNER MILLENNIUM Appearance, Urine Dipstick Clear Clear CERNER MILLENNIUM Specific [place] Urine Automated 1.021 1.002 - 1.030 CERNER MILLENNIUM Color, Urine Dipstick Yellow Yellow CERNER MILLENNIUM RBC, Urine Not Present 0 - 4 CERNER MILLENNIUM WBC, Urine <1 0 - 5 /HPF CERN[facility] MILLENNIUM Squamous Epithelial Cells, Urine <1 <=4 /HPF CERNER MILLENNIUM Urine specimen (specimen) 07/05/2011 3:38 PM EDT 07/05/2011 3:43 PM EDT Narrative Resulting Agency Comment Spec In Lab Samm Cornejo MD [facility]LES [facility] * EKG 12 Lead (07/05/2011 3:31 PM EDT) Pathologist [facility] Ventricular rate 44 BPM MUSE SYSTEM Atrial Rate 44 BPM MUSE SYSTEM P-R Interval 172 ms MUSE SYSTEM QRS Duration 84 ms MUSE SYSTEM Q-T Interval 468 ms MUSE SYSTEM QTC Calculated (Bezet) 400 ms MUSE SYSTEM Calculated P [place] 26 degrees MUSE SYSTEM Calculated R [place] 60 degrees MUSE SYSTEM Calculated T [place] 43 degrees MUSE SYSTEM INTERPRETATION Marked sinus bradycardia Otherwise normal ECG No previous ECGs available Confirmed by MD Freddy, Chet ([id number]) on 07/06/2011 2:22:28 PM MUSE SYSTEM 07/05/2011 3:31 PM EDT 07/06/2011 2:22 PM EDT Samm Cornejo MD ECG ORDERABLES MUSE SYSTEM * Hemoglobin A1c (07/05/2011 3:23 PM EDT) Pathologist [facility] Hemoglobin A1c 5.8 4.3 - 6.1 % [facility] Estimated Average Glucose 120 mg/dL [facility] Comment: eAG equivalents for HbA1c percentages: HbA1c(%) ?eAG(mg/dL) 6.0 ?126 6.5 ?140 7.0 ?154 7.5 ?169 8.0 ?183 8.5 ?197 9.0 ?212 9.5 ?226 10.0 ? 240 Limitations: The eAG calculation has not been validated on women, individuals below 18 years old and above 70 years old, and individuals with hemoglobinopathies. Additional resources are available on the ADA website: ??http://professional.diabetes.org/glucosecalculator.aspx Reference: Lauro PORTILLO, Brooke J, Marlene R, et al. ??Translating the A1C assay into estimated average glucose values. ??Diabetes Care 2008:31(8):7379-3030. Blood specimen (specimen) 07/05/2011 3:23 PM EDT 07/05/2011 3:43 PM EDT Narrative Resulting Agency Comment Spec In Lab Samm Cornejo MD CHEMISTRY ORDERABLES [facility] * Protein, total (07/05/2011 3:23 PM EDT) [facility] Protein, Total 7.5 6.4 - 8.3 gm/dL [facility] Blood specimen (specimen) 07/05/2011 3:23 PM EDT 07/05/2011 3:43 PM EDT Narrative Resulting Agency Comment Spec In Lab Samm Cornejo MD CHEMISTRY ORDERABLES Performing Organization Address [facility] de Phone Number MINOO MCMAHON * Albumin Level (07/05/2011 3:23 PM EDT) Albumin 4.5 3.2 - 5.2 gm/dL [facility] Blood specimen (specimen) 07/05/2011 3:23 PM EDT 07/05/2011 3:43 PM EDT Narrative Resulting Agency Comment Spec In Lab Samm Cornejo MD CHEMISTRY ORDERABLES Performing Organization Address [facility] de Phone Number MINOO MCMAHON * High Sensitivity CRP (07/05/2011 3:23 PM EDT) C-Reactive Protein High Sensitivity 0.6 mg/L [facility] Comment: Interpretations: 1) For cardiac risk assessment, two values (fasting or nonfasting sample acceptable) taken at least 2 weeks apart, should be averaged to provide a more reliable estimate of marker level. ??This laboratory uses the recommendations from the AHA/CDC Scientific Statement for interpretations of future risks of cardiovascular events: ? <1.0 mg/L: low risk 1.0 - 3.0 mg/L: moderate risk >3.0 mg/L: high risk groups for future cardiovascular events 2) The general reference range of apparently healthy individuals using this test is <5.0 mg/L (derived from the test package insert) A few words of caution: For cardiac assessment, when a value >10 mg/L is encountered, there should be a search for an acute inflammatory condition or infection (in patients with acute inflammation, the concentration can increase to >500 mg/L). ??The >10 mg/L should be discarded if such a situation exists, since the risk for coronary heart disease cannot be provided, and a repeat specimen, taken at least two weeks after resolution of the acute inflammatory condition, may allow for appraisal of coronary risk information. Please note that significantly decreased CRP values may be obtained from samples taken from patients who have been treated with carboxypenicillins. References: 1. Paz TA et. al. ??AHA/CDC Scientific Statement: Markers of Inflammation and Cardiovascular Disease. ??Circulation 2003; 107:499-511 2. Ridker PM. ??Clinical applications of C-reactive protein for cardiovascular disease detection and prevention. ??Circulation 2003; 107:363-369 Blood specimen (specimen) 07/05/2011 3:23 PM EDT 07/05/2011 3:43 PM EDT Narrative Resulting Agency Comment Spec In Lab Samm Cornejo MD CHEMISTRY ORDERABLES Performing Organization Address [facility] de Phone Number [facility] [employer] * Sedimentation rate (07/05/2011 3:23 PM EDT) Sedimentation Rate Automated 19 0 - 20 mm/hr [facility] Blood specimen (specimen) 07/05/2011 3:23 PM EDT 07/05/2011 3:43 PM EDT Narrative Resulting Agency Comment Spec In Lab Samm Cornejo MD HEMATOLOGY ORDERABLE S Performing Organization Address [facility] de Phone Number [facility] * APTT (07/05/2011 3:23 PM EDT) Partial Thromboplastin Time 27 25 - 35 sec [facility] [employer] Comment: Recommended therapeutic PTT range for full dose unfractionated heparin is 80-114 seconds. Blood specimen (specimen) 07/05/2011 3:23 PM EDT 07/05/2011 3:43 PM EDT Narrative Resulting Agency Comment Spec In Lab Samm Cornejo MD HEMATOLOGY ORDERABLE S Performing Organization Address [facility] de Phone Number [facility] * Prothrombin Time (07/05/2011 3:23 PM EDT) Prothrombin Time 12.9 11.9 - 14.7 sec [facility] [employer] Comment: [facility] Transfusion Committee Guidelines: INR less than 2.0, PTT less than OR equal to 43.5 seconds, or Fibrinogen greater than or equal to 100 mg/dl indicate adequate procoagulant activity for hemostasis in patients without underlying bleeding disorders. International Normalization Ratio 1.0 0.9 - 1.1 [facility] MILLENNIUM Blood specimen (specimen) 07/05/2011 3:23 PM EDT 07/05/2011 3:43 PM EDT Narrative Resulting Agency Comment Spec In Lab Samm Cornejo MD HEMATOLOGY ORDERABLE S [facility] MILLENNIUM * (ABNORMAL) Basic Metabolic Panel (non-fasting) (07/05/2011 3:23 PM EDT) Glucose 100 60 - 199 mg/dL [facility] MILLENNIUM Comment:Diabetes: >=200 mg/d L plus symptoms Blood Urea Nitrogen 28(H) 8 - 18 mg/dL [facility] MILLENNIUM Creatinine 0.71 0.70 - 1.20 mg/dL [facility] MILLENNIUM Sodium 145 135 - 145 mmol/L [facility] MILLENNIUM Potassium 4.1 3.5 - 5.0 mmol/L [facility]ILLENNIUM Comment: Please note: ??Patients with WBC >100,000 may have falsely elevated Potassium levels. ??For accurate Potassium quantification in these patients send serum separator tube (gold top) for subsequent determinations. ??Contact the Clinical Chemistry Laboratory if there are any questions. Chloride 104 98 - 107 mmol/L [facility] MILLENNIUM Carbon Dioxide 29 22 - 31 mmol/L [facility]ERN[facility] MILLENNIUM Anion Gap 12 5 - 15 mmol/L [facility] MILLENNIUM Calcium 9.5 8.5 - 10.5 mg/dL [facility]ERN[facility] MILLENNIUM Est Glomerular Filtration Rate >60 >=60 [facility] MILLENNIUM Comment: The National Kidney Disease Education Program (NKDEP) has recommended all laboratories report estimated GFR (eGFR) along with plasma creatinine measurements to assist you with recognition of early kidney disease. Caveats: ??Plasma creatinine should be at steady-state (unchanged within the past week). For patients multiply eGFR by 1.2. The MDRD equation was developed using patients between the ages of 18 and 70 years. ?? The MDRD equation has not been validated for patients < 18 years of age and should not be used to assess renal function in the pediatric population. ??The MDRD eGFR equation will also overestimate the true GFR of patients above the age of 70. ??This overestimation is variable but increases with age. At present, NKDEP does NOT recommend using the MDRD equation for drug dosing purposes and pharmacists should continue to use their current dosing methods. In addition, numerical eGFR values greater than 60 ml/min/1.73 square meters should be treated as > 60, and not an exact number due to greater inaccuracies at these higher values. Per NKDEP, they classify normal renal function as any GFR >60ml/min/1.73 square meters; chronic kidney disease when GFR <60, and renal failure when GFR <15. ??This calculation may not be valid for patients with atypical muscle mass (very lean or obese), acute renal failure, and in patients with diabetic kidney disease. References: http://nkdep.nih.gov/resources/NKDEP_Suggestn4Labs_0606_508.pdf http://www.kidney.org/professionals/kls/pdf/faq_gfr.pdf Lashay K, Alisha NA, Pia AK, Ranjan TS, Zulma AD, Adalberto MARY. Relative performance of the MDRD and CKD-EPI equations for estimating glomerular filtration rate among patients with varied clinical presentations. Clin J Am Soc Nephrol;6:1963-72. Blood specimen (specimen) 07/05/2011 3:23 PM EDT 07/05/2011 3:43 PM EDT Narrative Resulting Agency Comment Spec In Lab Samm Cornejo MD CHEMISTRY ORDERABLES [facility] DIANNCHANDLER * (ABNORMAL) CBC (with Diff) (07/05/2011 3:23 PM EDT) White Blood Cell 3.9(L) 4.0 - 10.0 x10(3)/mc L CERNER MILLENNIUM Red Blood Cell 4.37 3.93 - 5.22 x10(6)/mc L [facility]ILLEN[facility] Hemoglobin 13.7 11.2 - 15.7 gm/dL MINOO MILLENNIUM Hematocrit 40.5 34.0 - 45.0 % CERNER MILLENNIUM Mean Cell Volume 92.7 79.0 - 94.0 fL CERNER MILLENNIUM Mean Cell Hemoglobin 31.4 26.6 - 32.2 pg CERNER MILLENNIUM Mean Cell Hemoglobin Concentration 33.8 32.0 - 36.5 gm/dL CERNER MILLENNIUM Platelet 217 145 - 370 x10(3)/mc L CERNER MILLENNIUM RDW Standard Deviation 43.2 35.0 - 46.0 fL CERNER MILLENNIUM RDW coefficient of variation 12.8 10.9 - 14.4 % CERNER MILLENNIUM Mean Platelet Volume 10.0 9.0 - 12.0 fL [facility]ERN[facility] MILLENNIUM Blood specimen (specimen) 07/05/2011 3:23 PM EDT 07/05/2011 3:43 PM EDT Narrative Resulting Agency Comment Spec In Lab Samm Cornejo MD HEMATOLOGY ORDERABLE S [facility] documented in this encounter Visit Diagnoses Diagnosis DJD (degenerative joint disease) of hip- Primary Osteoarthrosis, unspecified whether generalized or localized, pelvic region and thigh DJD (degenerative joint disease) of hip Osteoarthrosis, unspecified whether generalized or localized, pelvic region and thigh documented in this encounter Care Teams Conduit Cleaner Relationship Specialty Start Date End Date Unknown None PCP - General 06/03/11 07/26/11 documented as of this encounter
--- OUTSIDE RECORDS SUMMARY | 2024-02-06 10:01 | XMS_ITS | Encounter Summary ---
Author Organization [facility] Address [facility] [place] [address] Care Team Providers Care Sheet Rock Nailer Name Role Phone Unknown Primary Care Provider Unavailabl e Encounter Details Date Type Department Care Team (Late st Contact Info) Description 07/04/2011 [place] [address] Samm Hoang MD [facility] [place] [address] Hip pain (Primary Dx) Social History Tobacco Use Types Packs/Day Years Used Date Smoking Tobacco: Never Assessed Sex and Gender Information Value Date Recorded Sex Assigned at Not on file Gender Identity Not on file Sexual Orientation Not on file documented as of this encounter Plan of Treatment Not on file documented as of this encounter Results * XR pelvis and lateral hip (07/05/2011 11:50 AM EDT) Anatomical Region Laterality Modality Pelvis, Hip N/A Radiographic Lorie ging 07/05/2011 11:5 0 AM EDT Narrative 07/05/2011 2:34 PM EDT PELVIS AP AND RIGHT HIP AP AND LATERAL: HISTORY: ??Right hip OA. Question replacement. ?? COMPARISON: ??No comparisons. ?? FINDINGS: ??Marked narrowing of the right hip joint with subchondral sclerosis and cyst formation in the femoral head and acetabulum. Associated marginal osteophyte formation. Less severe degenerative changes at the left hip with marginal osteophyte formation and minimal subchondral cyst formation. Left hip joint is preserved. There are degenerative changes at the pubic symphysis. Visualized portions of the SI joints are unremarkable. ?? CONCLUSION: ?? 1. Advanced degenerative change of the right hip. ?? 2. Less severe degenerative changes left hip and pubic symphysis. ?? Procedure Note Jennifer Trammell MD - 07/05/2011 PELVIS AP AND RIGHT HIP AP AND LATERAL: HISTORY: Right hip OA. Question replacement. COMPARISON: No comparisons. FINDINGS: Marked narrowing of the right hip joint with subchondralsclerosis and cyst formation in the femoral head and acetabulum. Associated marginal osteophyte formation. Less severe degenerative changes at the left hipwith marginal osteophyte formation and minimal subchondral cyst formation. Lefthip joint is preserved. There are degenerative changes at the pubic symphysis. Visualized portions of the SI joints are unremarkable. CONCLUSION: 1. Advanced degenerative change of the right hip. 2. Less severe degenerative changes left hip and pubic symphysis. Samm Hoang MD IMG DX ORDERABLES documented in this encounter Visit Diagnoses Diagnosis Hip pain- Primary Pain in joint, pelvic region and thigh Hip pain Pain in joint, pelvic region and thigh documented in this encounter Care Teams Sheet Rock Nailer Relationship Specialty Start Date End Date Unknown None PCP - General 06/03/11 07/26/11 documented as of this encounter
--- OUTSIDE RECORDS SUMMARY | 2024-02-06 10:01 | XMS_ITS | Continuity of Care Document ---
Author Organization [facility] Address [address] [place] [address] Phone Care Team Providers Care Tack Cleaner Name Role Phone PCP, Not Given Primary Care Provider Preet Bernstein Attending Provider Allergies, Adverse Reactions, Alerts No allergy information available. Medications No medication information available. Problems No problem information available. Relevant Diagnostic Tests and/or Laboratory Data Laboratory Results Test Date/Time Result Interpretation Reference Range Result Comment Performing Site White Blood Count September 26, 2019 11:46am 2.80 1000/mm3 4.8-10.8 MAIN LAB, [address] [place] [address] 69924 Red Blood Count September 26, 2019 11:46am 4.33 M/mm3 4.20-5.40 MAIN LAB, [address] [place] [address] 87728 Hemoglobin September 26, 2019 11:46am 13.3 g/dL 12.0-16.0 MAIN LAB, [address] [place] [address] 49422 Hematocrit September 26, 2019 11:46am 42.0 % 37-47 MAIN LAB, [address] [place] [address] 89698 Mean Corpuscular Volume September 26, 2019 11:46am 97.0 fL 81.0-99.0 MAIN LAB, [address] [place] [address] 05911 Mean Corpuscular Hemoglobin September 26, 2019 11:46am 30.7 pg 27-31 MAIN LAB, [address] [place] [address] 22947 Mean Corpuscular Hemoglobin Concent September 26, 2019 11:46am 31.7 g/dL 33-37 MAIN LAB, [address] [place] [address] 71976 Red Cell Distribution Width September 26, 2019 11:46am 12.3 % 11.5-14.5 MAIN LAB, [address] [place] [address] 10545 Platelet Count September 26, 2019 11:46am 204 1000/mm3 140-440 MAIN LAB, [address] [place] [address] 12161 Mean Platelet Volume September 26, 2019 11:46am 11.2 fL 7.4-10.4 MAIN LAB, [address] [place] [address] 20119 Neutrophils (%) (Auto) September 26, 2019 11:46am 50.3 % 40.0-72.0 MAIN LAB, [address] [place] [address] 03492 Lymphocytes (%) (Auto) September 26, 2019 11:46am 36.8 % 17-45 MAIN LAB, [address] [place] [address] 71585 Monocytes (%) (Auto) September 26, 2019 11:46am 10.4 % 3-11 MAIN LAB, [address] [place] [address] 75832 Eosinophils (%) (Auto) September 26, 2019 11:46am 1.4 % 0-3 MAIN LAB, [address] [place] [address] 31976 Basophils (%) (Auto) September 26, 2019 11:46am 1.1 % 0-1 MAIN LAB, [address] [place] [address] 51115 Immature Granulocyte % (Auto) September 26, 2019 11:46am 0.0 % 0-1 MAIN LAB, [address] [place] [address] 46250 Neutrophils # (Auto) September 26, 2019 11:46am 1.41 1000/mm3 1.4-6.5 MAIN LAB, [address] [place] [address] 61816 Lymphocytes # (Auto) September 26, 2019 11:46am 1.03 1000/mm3 1.2-3.4 MAIN LAB, [address] [place] [address] 55989 Monocytes # (Auto) September 26, 2019 11:46am 0.29 1000/mm3 0.0-0.8 MAIN LAB, [address] [place] [address] 71730 Eosinophils # (Auto) September 26, 2019 11:46am 0.04 1000/mm3 0.0-0.7 MAIN LAB, [address] [place], [place] [address] Basophils # (Auto) September 26, 2019 11:46am 0.03 1000/mm3 0.0-0.1 MAIN LAB, [address] [place] [address] Absolute Immature Granulocyte (auto September 26, 2019 11:46am 0.0 0-1 MAIN LAB, [address] [place] [address] Differential Method September 26, 2019 11:46am Automated MAIN LAB, [address] [place] [address] Sodium Level September 26, 2019 11:46am 138 mmol/L 137-145 MAIN LAB, [address] [place] [address] Potassium Level September 26, 2019 11:46am 4.2 mmol/L 3.6-5.0 MAIN LAB, [address] [place], [place] [address] Chloride Level September 26, 2019 11:46am 99 mmol/L 98-107 MAIN LAB, [address] [place], [place] [address] Carbon Dioxide Level September 26, 2019 11:46am 33 mmol/L 22-30 MAIN LAB, [address] [place], [place] [address] Anion Gap September 26, 2019 11:46am 6 7-16 MAIN LAB, [address] [place], [place] [address] Blood Urea Nitrogen September 26, 2019 11:46am 17 mg/dL 7-17 MAIN LAB, [address] [place], [place] [address] Creatinine September 26, 2019 11:46am 0.62 mg/dL 0.52-1.04 MAIN LAB, [address] [place], [place] [address] Glomerular Filtration Rate Calc September 26, 2019 11:46am > 60 mL/min >60.0 MAIN LAB, [address] [place], [place] [address] Glucose Level September 26, 2019 11:46am 100 mg/dL 70-100 MAIN LAB, [address] [place], [place] [address] Calcium Level September 26, 2019 11:46am 9.3 mg/dL 8.4-10.2 MAIN LAB, [address] [place], [place] [address] Calcium Adjusted for Albumin September 26, 2019 11:46am 9.1 mg/dL 8.4-10.2 MAIN LAB, [address] [place], [place] [address] Total Bilirubin September 26, 2019 11:46am 0.3 mg/dL 0.2-1.3 MAIN LAB, [address] [place] [address] 58873 Aspartate Amino Transf (AST/SGOT) September 26, 2019 11:46am 48 U/L 14-36 MAIN LAB, [address] [place] [address] 35843 Alanine Aminotransferase (ALT/SGPT) September 26, 2019 11:46am 36 U/L <35 As of 07/19/19, the Reference Range for ALT/SGPT for adult patients has been updated. The Reference Range for ALT/SGPT has not been established for patients <18 years of age. MAIN LAB, [address] [place] [address] 39267 Total Protein September 26, 2019 11:46am 7.1 g/dL 6.3-8.2 MAIN LAB, [address] [place] [address] 62980 Albumin September 26, 2019 11:46am 4.6 g/dL 3.5-5.0 MAIN LAB, [address] [place] [address] 85917 Cholesterol Level September 26, 2019 11:46am 212 mg/dL 59-199 MAIN LAB, [address] [place] [address] 06170 HDL Cholesterol September 26, 2019 11:46am 60 mg/dL 40-60 The National Cholesterol Education Program (NCEP) has set the following guidelines (reference values) for cholesterol, HDL:Low HDL: <40 mg/dLNormal: 40-60 mg/dLDesirab le: >60 mg/dL MAIN LAB, [address] [place] [address] 47320 LDL Cholesterol September 26, 2019 11:46am 123.4 mg/dL 0-129 MAIN LAB, [address] [place] [address] 26885 VLDL Cholesterol September 26, 2019 11:46am 28.6 mg/dL 0-32 MAIN LAB, [address] [place] [address] 86175 Cholesterol/HDL Ratio September 26, 2019 11:46am 3.53 0-3.9 MAIN LAB, [address] [place] [address] 90455 Triglycerides Level September 26, 2019 11:46am 143 mg/dL 0-149 MAIN LAB, [address] [place] [address] 93651 Alkaline Phosphatase September 26, 2019 11:46am 73 U/L 38-126 MAIN LAB, [address] [facility] [address] Advance Directives Advance Directive Response Recorded Date/ Time Does patient have an Advanced Directive? No February 09, 2010 1:35pm Pt has a Living Will? No January 192009 1:35pm Pt has a Power of Strategic Account Executive? No Gael garza 2009 1:35pm Encounters Encounter Location(s) Arrival/Admit Date Discharge/Depart Date Provider(s) Departed Referred [facility] September 26, 2019 6:57pm September 26, 2019 6:58pm JENNY Tomas Assessments No Assessments Information Available Functional Status No Functional Status information available Goals Goals may be documented in an alternate section. Mental Status No Mental Status Information Available Medical Equipment No Medical Equipment Information available Insurance Providers Guarantor Deborah Rodríguez Address [place] [address] Contact Info. Home Phone: Payer Policy Id Coverage Id Subscriber's Name Subscriber Id Effective Date Expiration Date Digiting (DO NOT USE) [id number] CORA MCGOVERN [id number] [facility] [id number] DEBORAH RODRÍGUEZ [id number] SELF PAY Self N/A Social History Assigned Sex Female
--- OUTSIDE RECORDS SUMMARY | 2024-02-06 10:01 | XMS_ITS | Continuity of Care Document ---
Author Organization [facility] Address [address] [place] [address] Phone Care Team Providers Care Radio Reporter Name Role Phone PCP, Not Given Primary Care Provider Preet Bernstein Attending Provider PCP, of Choice Primary Care Provider Sue Segura Attending Provider [phone] Allergies, Adverse Reactions, Alerts No allergy information available. Medications No medication information available. Problems No problem information available. Relevant Diagnostic Tests and/or Laboratory Data Laboratory Results Test Date/Time Result Interpretation Reference Range Result Comment Performing Site White Blood Count September 26, 2019 11:46am 2.80 1000/mm3 4.8-10.8 MAIN LAB, [address] [place] [address] 96685 White Blood Count November 27, 2019 10:00am 3.01 1000/mm3 4.8-10.8 MAIN LAB, [address] [place] [address] 73745 Red Blood Count November 27, 2019 10:00am 4.52 M/mm3 4.20-5.40 MAIN LAB, [address] [place] [address] 01366 Red Blood Count September 26, 2019 11:46am 4.33 M/mm3 4.20-5.40 MAIN LAB, [address] [place] [address] 25238 Hemoglobin September 26, 2019 11:46am 13.3 g/dL 12.0-16.0 MAIN LAB, [address] [facility] [address] Hemoglobin November 27, 2019 10:00am 13.9 g/dL 12.0-16.0 MAIN LAB, [address] [place] [address] 97788 Hematocrit September 26, 2019 11:46am 42.0 % 37-47 MAIN LAB, [address] [place] [address] 28010 Hematocrit November 27, 2019 10:00am 43.1 % 37-47 MAIN LAB, [address] [place] [address] 33672 Mean Corpuscular Volume November 27, 2019 10:00am 95.4 fL 81.0-99.0 MAIN LAB, [address] [place] [address] 01094 Mean Corpuscular Volume September 26, 2019 11:46am 97.0 fL 81.0-99.0 MAIN LAB, [address] [place] [address] 26629 Mean Corpuscular Hemoglobin September 26, 2019 11:46am 30.7 pg 27-31 MAIN LAB, [address] [place] [address] 56933 Mean Corpuscular Hemoglobin November 27, 2019 10:00am 30.8 pg 27-31 MAIN LAB, [address] [place] [address] 20358 Mean Corpuscular Hemoglobin Concent November 27, 2019 10:00am 32.3 g/dL 33-37 MAIN LAB, [address] [place] [address] 50395 Mean Corpuscular Hemoglobin Concent September 26, 2019 11:46am 31.7 g/dL 33-37 MAIN LAB, [address] [place] [address] 26679 Red Cell Distribution Width September 26, 2019 11:46am 12.3 % 11.5-14.5 MAIN LAB, [address] [place] [address] 58885 Red Cell Distribution Width November 27, 2019 10:00am 12.6 % 11.5-14.5 MAIN LAB, [address] [place] [address] 26393 Platelet Count November 27, 2019 10:00am 259 1000/mm3 140-440 MAIN LAB, [address] [place] [address] 71742 Platelet Count September 26, 2019 11:46am 204 1000/mm3 140-440 MAIN LAB, [address] [place] [address] 60129 Mean Platelet Volume November 27, 2019 10:00am 10.6 fL 7.4-10.4 MAIN LAB, [address] [place] [address] 97426 Mean Platelet Volume September 26, 2019 11:46am 11.2 fL 7.4-10.4 MAIN LAB, [address] [place] [address] 59916 Neutrophils (%) (Auto) September 26, 2019 11:46am 50.3 % 40.0-72.0 MAIN LAB, [address] [place] [address] 14718 Neutrophils (%) (Auto) November 27, 2019 10:00am 51.1 % 40.0-72.0 MAIN LAB, [address] [place] [address] 08215 Lymphocytes (%) (Auto) November 27, 2019 10:00am 31.2 % 17-45 MAIN LAB, [address] [place] [address] 24041 Lymphocytes (%) (Auto) September 26, 2019 11:46am 36.8 % 17-45 MAIN LAB, [address] [place] [address] 99367 Monocytes (%) (Auto) September 26, 2019 11:46am 10.4 % 3-11 MAIN LAB, [address] [place] [address] 23055 Monocytes (%) (Auto) November 27, 2019 10:00am 12.0 % 3-11 MAIN LAB, [address] [place] [address] 72836 Eosinophils (%) (Auto) September 26, 2019 11:46am 1.4 % 0-3 MAIN LAB, [address] [place] [address] 19375 Eosinophils (%) (Auto) November 27, 2019 10:00am 4.7 % 0-3 MAIN LAB, [address] [place] [address] 34987 Basophils (%) (Auto) November 27, 2019 10:00am 1.0 % 0-1 MAIN LAB, [address] [place] [address] 69406 Basophils (%) (Auto) September 26, 2019 11:46am 1.1 % 0-1 MAIN LAB, [address] [place] [address] 72083 Immature Granulocyte % (Auto) November 27, 2019 10:00am 0.0 % 0-1 MAIN LAB, [address] [place] [address] 79217 Immature Granulocyte % (Auto) September 26, 2019 11:46am 0.0 % 0-1 MAIN LAB, [address] [place] [address] 97403 Neutrophils # (Auto) September 26, 2019 11:46am 1.41 1000/mm3 1.4-6.5 MAIN LAB, [address] [place] [address] 61281 Neutrophils # (Auto) November 27, 2019 10:00am 1.54 1000/mm3 1.4-6.5 MAIN LAB, [address] [place] [address] 13715 Lymphocytes # (Auto) September 26, 2019 11:46am 1.03 1000/mm3 1.2-3.4 MAIN LAB, [address] [place] [address] 31341 Lymphocytes # (Auto) November 27, 2019 10:00am 0.94 1000/mm3 1.2-3.4 MAIN LAB, [address] [place] [address] 11658 Monocytes # (Auto) November 27, 2019 10:00am 0.36 1000/mm3 0.0-0.8 MAIN LAB, [address] [place] [address] 62552 Monocytes # (Auto) September 26, 2019 11:46am 0.29 1000/mm3 0.0-0.8 MAIN LAB, [address] [place] [address] 48347 Eosinophils # (Auto) November 27, 2019 10:00am 0.14 1000/mm3 0.0-0.7 MAIN LAB, [address] [place] [address] 98587 Eosinophils # (Auto) September 26, 2019 11:46am 0.04 1000/mm3 0.0-0.7 MAIN LAB, [address] [place] [address] 49260 Basophils # (Auto) September 26, 2019 11:46am 0.03 1000/mm3 0.0-0.1 MAIN LAB, [address] [place] [address] 13509 Basophils # (Auto) November 27, 2019 10:00am 0.03 1000/mm3 0.0-0.1 MAIN LAB, [address] [place] [address] 02757 Absolute Immature Granulocyte (auto November 27, 2019 10:00am 0.0 0-1 MAIN LAB, [address] [place] [address] 67112 Absolute Immature Granulocyte (auto September 26, 2019 11:46am 0.0 0-1 MAIN LAB, [address] [place] [address] Differential Method November 27, 2019 10:00am Automated MAIN LAB, [address] [place] [address] Differential Method September 26, 2019 11:46am Automated MAIN LAB, [address] [place] [address] 86749 Sodium Level November 27, 2019 10:00am 141 mmol/L 137-145 MAIN LAB, [address] [place] [address] 73278 Sodium Level September 26, 2019 11:46am 138 mmol/L 137-145 MAIN LAB, [address] [place] [address] 34984 Potassium Level September 26, 2019 11:46am 4.2 mmol/L 3.6-5.0 MAIN LAB, [address] [place] [address] 27648 Potassium Level November 27, 2019 10:00am 4.6 mmol/L 3.6-5.0 MAIN LAB, [address] [place] [address] 23234 Chloride Level November 27, 2019 10:00am 100 mmol/L 98-107 MAIN LAB, [address] [place] [address] 54872 Chloride Level September 26, 2019 11:46am 99 mmol/L 98-107 MAIN LAB, [address] [place] [address] 99454 Carbon Dioxide Level November 27, 2019 10:00am 36 mmol/L 22-30 MAIN LAB, [address] [place] [address] 48411 Carbon Dioxide Level September 26, 2019 11:46am 33 mmol/L 22-30 MAIN LAB, [address] [place] [address] 85752 Anion Gap September 26, 2019 11:46am 6 7-16 MAIN LAB, [address] [place] [address] 28488 Anion Gap November 27, 2019 10:00am 5 7-16 MAIN LAB, [address] [place] [address] 25737 Blood Urea Nitrogen November 27, 2019 10:00am 22 mg/dL 7-17 MAIN LAB, [address] [place] [address] 16753 Blood Urea Nitrogen September 26, 2019 11:46am 17 mg/dL 7-17 MAIN LAB, [address] [place] [address] 05167 Creatinine September 26, 2019 11:46am 0.62 mg/dL 0.52-1.04 MAIN LAB, [address] [place] [address] 56456 Creatinine November 27, 2019 10:00am 0.69 mg/dL 0.52-1.04 MAIN LAB, [address] [place] [address] 99020 Glomerular Filtration Rate Calc September 26, 2019 11:46am > 60 mL/min >60.0 MAIN LAB, [address] [place] [address] 21226 Glomerular Filtration Rate Calc November 27, 2019 10:00am > 60 mL/min >60.0 MAIN LAB, [address] [place] [address] 09014 Glucose Level September 26, 2019 11:46am 100 mg/dL 70-100 MAIN LAB, [address] [place] [address] 22563 Glucose Level November 27, 2019 10:00am 110 mg/dL 70-100 MAIN LAB, [address] [place] [address] 13038 Calcium Level September 26, 2019 11:46am 9.3 mg/dL 8.4-10.2 MAIN LAB, [address] [place] [address] 49924 Calcium Level November 27, 2019 10:00am 9.9 mg/dL 8.4-10.2 MAIN LAB, [address] [place] [address] 45470 Calcium Adjusted for Albumin November 27, 2019 10:00am 9.8 mg/dL 8.4-10.2 MAIN LAB, [address] [place] [address] 27738 Calcium Adjusted for Albumin September 26, 2019 11:46am 9.1 mg/dL 8.4-10.2 MAIN LAB, [address] [place] [address] 39623 Total Bilirubin September 26, 2019 11:46am 0.3 mg/dL 0.2-1.3 MAIN LAB, [address] [place] [address] 53049 Total Bilirubin November 27, 2019 10:00am 0.3 mg/dL 0.2-1.3 MAIN LAB, [address] [place] [address] 65964 Aspartate Amino Transf (AST/SGOT) November 27, 2019 10:00am 50 U/L 14-36 MAIN LAB, [address] [place] [address] 94092 Aspartate Amino Transf (AST/SGOT) September 26, 2019 11:46am 48 U/L 14-36 MAIN LAB, [address] [place] [address] 24132 Alanine Aminotransferase (ALT/SGPT) November 27, 2019 10:00am 48 U/L <35 As of 07/19/19, the Reference Range for ALT/SGPT for adult patients has been updated. The Reference Range for ALT/SGPT has not been established for patients <18 years of age. MAIN LAB, [address] [place] [address] 34317 Alanine Aminotransferase (ALT/SGPT) September 26, 2019 11:46am 36 U/L <35 As of 07/19/19, the Reference Range for ALT/SGPT for adult patients has been updated. The Reference Range for ALT/SGPT has not been established for patients <18 years of age. MAIN LAB, [address] [place] [address] 31596 Total Protein November 27, 2019 10:00am 7.3 g/dL 6.3-8.2 MAIN LAB, [address] [place] [address] 48645 Total Protein September 26, 2019 11:46am 7.1 g/dL 6.3-8.2 MAIN LAB, [address] [place] [address] 59026 Albumin September 26, 2019 11:46am 4.6 g/dL 3.5-5.0 MAIN LAB, [address] [place] [address] 95270 Albumin November 27, 2019 10:00am 4.4 g/dL 3.5-5.0 MAIN LAB, [address] [place] [address] 71222 Cholesterol Level November 27, 2019 10:00am 198 mg/dL 59-199 MAIN LAB, [address] [place] [address] 62531 Cholesterol Level September 26, 2019 11:46am 212 mg/dL 59-199 MAIN LAB, [address] [place] [address] 16409 HDL Cholesterol November 27, 2019 10:00am 67 mg/dL 40-60 The National Cholesterol Education Program (NCEP) has set the following guidelines (reference values) for cholesterol, HDL:Low HDL: <40 mg/dLNormal: 40-60 mg/dLDesirab le: >60 mg/dL MAIN LAB, [address] [place] [address] 08221 HDL Cholesterol September 26, 2019 11:46am 60 mg/dL 40-60 The National Cholesterol Education Program (NCEP) has set the following guidelines (reference values) for cholesterol, HDL:Low HDL: <40 mg/dLNormal: 40-60 mg/dLDesirab le: >60 mg/dL MAIN LAB, [address] [facility] 6[address]31 LDL Cholesterol November 27, 2019 10:00am 99.4 mg/dL 0-129 MAIN LAB, [address] [place] [address] 94531 LDL Cholesterol September 26, 2019 11:46am 123.4 mg/dL 0-129 MAIN LAB, [address] [place] [address] 92388 VLDL Cholesterol November 27, 2019 10:00am 31.6 mg/dL 0-32 MAIN LAB, [address] [place] [address] 47138 VLDL Cholesterol September 26, 2019 11:46am 28.6 mg/dL 0-32 MAIN LAB, [address] [place] [address] 96036 Cholesterol/HDL Ratio September 26, 2019 11:46am 3.53 0-3.9 MAIN LAB, [address] [place] [address] 57088 Cholesterol/HDL Ratio November 27, 2019 10:00am 2.95 0-3.9 MAIN LAB, [address] [place] [address] 04212 Triglycerides Level September 26, 2019 11:46am 143 mg/dL 0-149 MAIN LAB, [address] [place] [address] 27399 Triglycerides Level November 27, 2019 10:00am 158 mg/dL 0-149 MAIN LAB, [address] [place] [address] 41766 Alkaline Phosphatase September 26, 2019 11:46am 73 U/L 38-126 MAIN LAB, [address] [place] [address] 72353 Alkaline Phosphatase November 27, 2019 10:00am 83 U/L 38-126 MAIN LAB, [address] [place] [address] 00532 Advance Directives Advance Directive Response Recorded Date/ Time Does patient have an Advanced Directive? No February 09, 2010 1:35pm Pt has a Living Will? No January 192009 1:35pm Pt has a Power of Speeder Machine Operator? Dimple garza 2009 1:35pm Chief Complaint and Reason for Visit Chief Complaint encounter for genera l adult medical exam Encounters Encounter Location(s) Arrival/Admit Date Discharge/Depart Date Provider(s) Departed Referred [facility] September 26, 2019 6:57pm September 26, 2019 6:58pm JENNY Tomas Departed Referred [facility] November 27, 2019 3:41pm November 27, 2019 3:42pm Sue Loco SENIOR AUTOMATION ENGINEER Assessments No Assessments Information Available Functional Status No Functional Status information available Goals Goals may be documented in an alternate section. Mental Status No Mental Status Information Available Medical Equipment No Medical Equipment Information available Insurance Providers Guarantor ADELIA RODRÍGUEZ Address [address] [address] Contact Info. Home Phone: Payer Policy Id Coverage Id Subscriber's Name Subscriber Id Effective Date Expiration Date Bluesocket (DO NOT USE) [id number] CORA MCGOVERN [id number] [employer] [place] [id number] ADELIA RODRÍGUEZ [id number] [facility] [id number] ADELIA RODRÍGUEZ [id number] SELF PAY Self N/A Social History Assigned Sex Female
--- OUTSIDE RECORDS SUMMARY | 2024-02-06 10:01 | XMS_ITS | Encounter Summary ---
Author Organization [facility] [place] [address] Care Team Providers Care Freight Coordinator Name Role Phone None Primary Care Provider Unavailabl e Encounter Details Date Type Department Care Team (Latest Contact Info) Description 08/05/2011 10:02 AM EDT - 08/06/2011 5:58 PM EDT Hospital Encounter [address] [place] [address] Samm Cornejo MD [facility] [place] [address] DJD (degenerative joint disease) of hip; Status post THR (total hip replacement); DJD (degenerative joint disease) of hip s/p MASOUD 08/04 Discharge Disposition: Home with [facility] Social History Tobacco Use Types Packs/Day Years [...] Sign Reading Time Taken Comments Blood Pressure 75/37 08/06/2011 11:36 AM EDT reported value to TIMO Dickson Pulse 58 08/06/2011 11:36 AM EDT Temperature 36.7 ??C (98.1 ??F) 08/06/2011 1 1:36 AM EDT Respiratory Rate 14 08/06/2011 11:3 6 AM EDT Oxygen Saturation 97% 08/06/2011 11: 36 AM EDT Inhaled Oxygen Concentration - - Weight 49 kg (108 lb) 08/06/2011 1:56 AM EDT Height 153.7 cm (5' 0.5) 08/06/2011 1: 56 AM EDT Body Mass Index 20.75 08/06/2011 1:56 AM EDT documented in this encounter Discharge Instructions * Patient Instructions* Nuzhat Manzo APRN - 08/06/2011 9:42 AM EDT Activity: You can weight bear as tolerated on your right leg using a walker or crutches at all times for balance and protection. Wear the JILL hose bilaterally to your lower legs until you are seen in followup. You should remove these at least once per day to inspect your skin. Anti-coagulation follow up: You have been discharged on enteric coated Aspirin to prevent blood clots. You should take Aspirin 325 mg twice daily x 6 weeks - STOP September 13 , unless you are told otherwise by . Diet: As usual, but increase your intake of fluids and fiber while you are on narcotics to prevent constipation Driving: NO driving until you are cleared to do so by Dr. Cornejo. You should NOT drive while you are on narcotic pain meds as these can affect your judgement and reaction times. Contact your surgeon with any questions. Medications: 1. The pain medication you are on can cause constipation so increase your intake of fluids and fiber while you are on them. The stool softener, Sennakot, that has been prescribed can also be taken tofacilite a bowel movement. YOu can take an wvno-bss-ujkigpa medication, miralax if needed. 2. If you need a renewal on your narcotic pain medication, you need to give the Orthopedic clinic enough time to process your request. This can take up to three days, so plan accordingly. 3. Continue to take the tylenol around the clock for the next 10 days. It can be effective in controlling pain along with your other medications. Wound : 1. You do not have any external sutures or eliseo in place. Your sutures are internal and will be absorbed over time. 2. You may shower on the 5th postoperative day. 3. Change your dressing daily with a dry sterile dressing for 1 week. After that leave the incisionopen to air. 4. Call your orthopaedic surgeon (#[phone]) with any fever, chills, sweats, redness or discharge from the wounds. Misc: 1. Remember that ICE and elevation are very important after surgery to help decrease swellingand control pain. Use ICE for 20-30 minutes at a time and keep your leg elevated as much as possible. 2. You will have an xray prior to your followup appointment. Report to Radiology Desk 3T 1 hour prior to that appointment for those studies documented in this encounter Medications at Time of Discharge Medication Sig Dispensed Refills Start Date End Date acetaminophen (TYLENOL) 500 mg tablet Take 2 tablets by mouth every 8 hours as needed for Pain. 08/06/2011 aspirin 325 mg EC tablet Take 1 tablet by mouth 2 times daily. 08/06/2011 09/14/2011 OXYcodone (ROXICODONE) 5 mg immediate release tablet Take 1-3 tablets by mouth every 4 hours as needed for Pain (mild pain). 75 tablet 0 08/06/2011 09/14/2011 senna-docusate (PERICOLACE) 8.6-50 mg per tablet Take 1-4 tablets by mouth 2 times daily. 60 tablet 0 08/06/2011 09/14/2011 ondansetron (ZOFRAN) 4 mg tablet Take 1 tablet by mouth every 8 hours as needed for Nausea. 20 tablet 0 08/06/2011 09/14/2011 FLAXSEED ORAL by [facility].(Non-Drug; Combo Route) route. 06/27/2018 EVENING PRIMROSE OIL (EVENING PRIMROSE ORAL) Take by mouth. RED YEAST RICE ORAL Take by mouth. 2018 lovastatin (MEVACOR) 20 mg tablet Take 20 mg by mouth nightly. 06/27/2018 GLUCOSAMINE HCL (GLUCOSAMINE, BULK, MISC) by [facility].(Non-Drug; Combo Route) route. 07/05/2018 ERGOCALCIFEROL, VITAMIN D2, (VITAMIN D ORAL) Take by mouth. 06/27 ASCORBATE CALCIUM (VITAMIN C ORAL) Take by mouth. 9 documented as of this encounter Progress Notes * Joseph Dickson, RN - 08/06/2011 5:35 PM EDT 61 yr-old female washed, dressed, and prepared for D/c to home S/p R MASOUD, anterior approach, per MDorder. Alert and oriented, VSS, + flatus, + BS x 4 quadrants, and voiding adequate amounts of clear, yellow urine without pain or discomfort. Tolerating a regular diet and hydrating adequately. Pain well managed with minor pharmaceutical intervention and regular repositioning. Ambulating independently w/ slow, steady gait and use of a walker. Incision is CDI, well approximated, no redness or purulent discharge; gauze dressing changed this AM is CDI. IV's removed, D/c teaching complete, belongings packed, prescriptions, extra dressing supplies, and AVS in hand, and Pt to curbside in W/c for transport to home via personal vehicle driven by son. Report faxed and called to [facility]. * Agus Jacobsen, OT - 08/06/2011 1:40 PM EDT Occupational Therapy Evaluation Patient profile: Adelia Macias is a 61 y.o. female patient of Dr. Cornejo,Samm Flores MD, admitted on 08/05/2011 secondary to anterior MASOUD. Past Medical History Diagnosis Date ? ? Nausea & vomiting Past Surgical History Procedure Date ??? Unlisted evaluation service removal of uterus ??? Musculoskeletal surgery unlisted left elbow Social History: Patient lives alone in 1-story house/ trailer. Patient will have assistance from friends and son. Baseline ADL/Mobility: Independent with ADL???s and IADL???s Difficulty wit sock Precautions/Special Considerations: WBAT Subjective: I had a hard time putting on socks before. Objective: Seen today for OT evaluation. Cognitive Status/Behavior: alert, oriented to person, place, and time Vision & Perception: Not assessed, WFL? s Range of motion, strength, coordination: WFL except R LE due to sx Sensation: not asked Activities of Daily Living: Self-feeding: Independent with setup Hygiene grooming: Independent with setup Upper and lower body self care and bathing: Issued sock aid, long handled sponge and hide spreader. Patent will wear berkinstocks. Patient able to don/doff socks using hide spreader and sock aid. Patient plans to wear sun dresses. Discussed shower transfer and to have someone in bathroom when she transfers in/out of walk in shower with grab bars. Discussed use of chair as needed. Toileting: Reports independent Functional Mobility: Supine to sit: minimal assist with HOB slightly elevated Sit to stand: supervision Ambulation: supervision with crutches Stand to sit: supervision Sit to supine: independent Discussed use of hide spreader and placement of items for ease of reach. Discussed use of phone. Balance: Good sitting and standing with supervision with crutches. IADL???s: Assistance available to patient. Endurance: Information taken from last recorded vitals in flow sheet. Last value Range last 8 hrs Heart Rate Heart Rate: 58 Heart Rate: [58-65] Blood Pressure BP: 75/37 mmHg (reported value to RN Joseph Dickson) BP: (75)/(37) SpO2 SpO2: 97 % SpO2: [97 %] Pt tolerated treatment well. Pain: At rest: 2 on a scale of 1 - 10 Location: hip With activity: stiffness Location: hip Skin: Not assessed, incision Informed Consent: The patient agrees to and understands the OT treatment plan and goals. Education: patient have been educated on Role of occupational therapy/rehabilitation, Adaptive equipment training, ADL, Safety, Functional Mobility, Home Management, Recommendations and Discharge planning and needs reinforcement. understanding. Patient status, treatment, and mobility recommendations discussed with nursing. Assessment: Pt has been seen by OT for evaluation and ADL teaching. They demonstrate the ability to perform basic ADL???s with assistance from son and friends. Anticipate that Pt will return home with assistance. Do not anticipate further OT needs. Recommendations: Equipment needs at discharge: Patient has all necessary equipment; issued hide spreader, sock aid and long handled sponge Discharge Recommendations: home with family Other Recommendations: No other consults recommended at this time Plan: D/C after eval Total time spent with patient: 26 minutes brief eval and ADL training Total timed interventions: 15 minutes ADL training Pager: [phone] AGUS JACOBSEN OT 08/06/2011 Occupational Therapy Rehabilitation Department * Jessie Collins RN - 08/06/2011 12:44 PM EDT Office of Care Management (OCM) / Clinical Slice Plug Cutter Operator Helper (CRC)/ Initial Assessment Discussed patient with Provider Team and in multidisciplinary discharge-planning rounds. Reviewed record and interviewed patient. Introduced/reviewed CRC role and services accepted. REASON for HOSPITALIZATION:POD 1 Right MASOUD anterior approach for DJD PREVIOUS FUNCTIONAL STATUS: indep CURRENT FUNCTIONAL STATUS: indep w ambulation though became faint and vomited last time and now haseaten and feels fine and PT will reevaluate w her. SOCIAL / FAMILY SUPPORTS: Has a fiance that is supportive and adult son who will be helping her initially at home. ADVANCE DIRECTIVES: INSURANCE COVERAGE / FINANCIAL ISSUES:Her insurance is through her fiance and the plan recently went through some changes so she doesn't know yet if still includes home health and what coverage wouldbe and she would be challenged to pay in full immediately out of pocket. CURRENT HOME/COMMUNITY SERVICES/EQUIPMENT:none POTENTIAL DISCHARGE NEEDS: Home PT services. 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 PATIENT/FAMILY EDUCATION NEEDS: re post op recovery activities and limitations. ANTICIPATED BARRIERS TO DISCHARGE:none TRANSPORTATION @ D/C: son is here and will be w pt at home also. PLAN: Orders pended for home PT services and info will be made available via EDischarge Program for: [facility] PHONE: [phone] FAX: [phone] Pt advised re and will f/u w [facility] re out of pocket cost IF no or only partial insurance coverage and options for payment plan etc. Plans to d/c home today pending reevaluation w PT. . * Samm Cornejo MD - 08/06/2011 6:30 AM EDT Orthopaedic Surgery Post-Op Check Note Surgery: Right Anterior MASOUD Patient Active Problem List Diagnoses Code ??? DJD (degenerative joint disease) of hip s/p MASOUD 08/04 715.95U ??? Hyperlipidemia 272.4S S/Events: Denies CP, SOB, vomiting, abd pain. Pain well controlled. Denies paresthesia in lateral right thigh. Reports some mild nausea when she stands otherwise well. Anxious for discharge. O: Vitals: Temp: [36.6 ??C (97.9 ??F)-36.8 ??C (98.2 ??F)] Heart Rate: [61-62] Resp: [15] BP: (80-84)/(45-47) SpO2: [95 %-99 %] I/O last 3 completed shifts: In: 2260 [I.V.:2260] Out: 890 [Urine:390; Blood:500] I/O this shift: In: 904 [I.V.:904] Out: 1390 [Urine:1390] Exam: General: NAD, awake/alert Resp: Breathing comfortably Abd: S/NT/ND RLE: Dressing c/d/i. Motor intact to EHL, FHL, TA. Sensation intact in foot/calf. Brisk capillary refill distally. Labs: Recent Labs Basename 08/06/11 0306 ??? WBC 7.1 ??? HGB 9.4* ??? HCT 28.0* ??? PLATELET 172 ??? NA 138 ??? K 4.5 ??? CL 104 ??? CO2 28 ??? BUN 15 ??? CREATININE 0.58* Imaging: AP Pelvis The right hip is reduced. There is no evidence of intra-op fracture. A/P: 61 y.o. year old female POD#1 s/p right anterior MASOUD, progressing well with stable vitals and uop. Likely home later today. - WBAT - D/C vaughan this AM - PO pain control - ASA 325 BID - Dressing change starting Monday - Home likely today Orthopaedic Surgery Attending Addendum: Patient seen and examined personally this AM. I reviewed the H&P documented by Dr. Gerardo and confirmed the findings with my own assessment. She looks and feels great and is both happy and thankful for our interventions. Looks good to go home today if clears PT. Has already done multiple laps around pod. Plan reviewed with the patient who agreed to proceed accordingly. Samm Cornejo MD Division of Joint Reconstruction Surgery Department [place] [address] * Julia Fontenot RN - 08/06/2011 5:50 AM EDT Pt. Admitted from PACU via bed. Pt arrived A & O X3., Lungs clear, HRR, Hypoactive BS, pt reports last BM was 08/05/11 . Pt. Has dsg intact to right hip . Venodyes in place. RN oriented pt. To room, call meyer, IS, and SCREEN PRINTER HELPER. Pt. Aware to alert RN to any concerns .Mirna GREENWOOD Will monitor pt. * Kvng Inman - 08/05/2011 7:36 PM EDT Orthopaedic Surgery Post-Op Check Note Surgery: Right Anterior MASOUD Patient Active Problem List Diagnoses Code ??? DJD (degenerative joint disease) of hip s/p MASOUD 08/04 715.95U ??? Hyperlipidemia 272.4S S/Events: Denies CP, SOB, nausea, vomiting, abd pain. Pain well controlled. Denies paresthesia in lateral right thigh. O: Vitals: Temp: [36.7 ??C (98.1 ??F)-36.9 ??C (98.4 ??F)] Heart Rate: [65-87] Resp: [14-23] BP: (91-113)/(40-58) SpO2: [82 %-100 %] I/O last 3 completed shifts: In: 2260 [I.V.:2260] Out: 890 [Urine:390; Blood:500] Exam: General: NAD, awake/alert Resp: Breathing comfortably Abd: S/NT/ND RLE: Dressing c/d/i. Motor intact to EHL, FHL, TA. Sensation intact in foot/calf. Brisk capillary refill distally. Labs: No results found for this basename: WBC:3,HGB:3,HCT:3,PLATELET:3,NA:3,K:3,CL:3,CO2:3,BUN:3,CREATININE:3 in the last 72 hours Imaging: AP Pelvis The right hip is reduced. There is no evidence of intra-op fracture. A/P: 61 y.o. year old female POD#0 s/p right anterior MASOUD, progressing well with stable vitals and uop. - Orders reviewed - continue all post-operative care - No hip precautions documented in this encounter H&P Notes * Samm Cornejo MD - 08/05/2011 10:30 AM EDT I have reviewed the patient's history and physical examination as performed by the patient's primary care team and find it up to date with no needed additions or changes. Source Note - Samm Cornejo MD - 08/05/2011 10:29 AM EDT Patient Name: Adelia Macias Patient Age: 61 y.o. Birthdate: 1950 Admit date: 08/05/2011 Attending Physician: Samm Cornejo MD Please see H&P scanned into eDH under scan docs tab. * Samm Cornejo MD - 08/05/2011 10:29 AM EDT Patient Name: Adelia Macias Patient Age: 61 y.o. Birthdate: 1950 Admit date: 08/05/2011 Attending Physician: Samm Cornejo MD Please see H&P scanned into eDH under scan docs tab. documented in this encounter Procedure Notes * Provider, Nazanin - 08/07/2011 12:56 PM EDTAssociated Order(s): SCAN DOC: IMPLANTABLE DEVICES documented in this encounter Nursing Notes * Raeann Pantoja, RN - 08/05/2011 3:24 PM EDT Medication cocktail injected into right hip tissue upon closure per Dr. Cornejo: 0.25% Marcaine w/ epinephrine 1:200,000 (50 ml) and Clonidine 50 mcg (0.5 ml). Total amount: 50.5 ml. documented in this encounter Miscellaneous Notes * Miscellaneous - Provider, Nazanin - 08/07/2011 12:49 PM EDT * Discharge Summary - Nuzhat Manzo APRN - 08/06/2011 11:00 AM EDT Department of Orthopaedic Medicine - Discharge Summary Patient Name: Adelia Macias Patient Age: 61 y.o. Birthdate: 1950 Admit date: 08/05/2011 Discharge date and time: 08/06/11 Attending Physician: Samm Cornejo MD Discharge Diagnoses (Hospital Problems) and Secondary Diagnoses (Chronic Problems): Active Hospital Problems Diagnoses ??? DJD (degenerative joint disease) of hip s/p MASOUD 08/04 Resolved Hospital Problems Diagnoses Date Resolved Active Non-Hospital Problems Diagnoses ??? Hyperlipidemia Operations: Case Date: 08/05/2011 Surgeon: Surgeon(s) and Role: * SAMM CORNEJO MD - Primary * FERMIN BARBOZA MD - Resident-Surgeon Chief Procedure: Procedure: RIGHT MASOUD, ANTERIOR approach History of Presentation: The patient has been followed in the out-patient clinic with a history of progressively worsening right hip pain. After having failed conservative, non-surgical attempts at managing the pain and limitations of functional capabilities, it was felt that the only remaining option was surgical. The post operative course was per the total hip arthroplasty pathway. DVT prophylaxis was: aspirin.Patient began rehab on POD#1 for full RLE. Vaughan was removed POD#1 and patient was voiding spontaneously. Wound inspected POD#1 and found to be benign. Patient did not have a bowel movement before discharge, but was passing flatus and taking po without difficulty. By POd #1, the patient was medically stable and was cleared for safe discharge to home per PT. Important Studies and Lab Data: Labs: Lab Results Component Value Date WBC 7.1 08/06/2011 HGB 9.4* 08/06/2011 HCT 28.0* 08/06/2011 MCV 93.0 08/06/2011 Discharge Conditions/Prognosis:Stable, awake, and alert. Mobilizing with walker/crutches, pain controlled on oral medications. Patient Vitals in the past 8 hrs: BP Temp Temp src Pulse Resp SpO2 08/05/ 1136 75/37 mmHg 36.7 ??C (98.1 ??F) - 58 14 97 % 08/05/ 0745 - - - 65 - 97 % 08/05/ 0524 80/46 mmHg - - - - - 08/06/11 0523 81/45 mmHg 36.8 ??C (98.2 ??F) Oral 61 15 99 % Discharge to: home Discharge Medications: Current Discharge Medication List New Meds Dose Details acetaminophen (TYLENOL) 500 mg tablet 1,000 mg Take 2 tablets by mouth every 8 hours as needed for Pain. Qty: Refills: aspirin 325 mg EC tablet 325 mg Take 1 tablet by mouth 2 times daily. Qty: Refills: OXYcodone (ROXICODONE) 5 mg immediate release tablet 5-15 mg Take 1-3 tablets by mouth every 4 hours as needed for Pain (mild pain). Qty: 75 tablet Refills: 0 senna-docusate (PERICOLACE) 8.6-50 mg per tablet 1-4 tablets Take 1-4 tablets by mouth 2 times daily. Qty: 60 tablet Refills: 0 Continued medications, unchanged Dose Details FLAXSEED ORAL by Misc.(Non-Drug; Combo Route) route. Qty: Refills: EVENING PRIMROSE OIL (EVENING PRIMROSE ORAL) Take by mouth. Qty: Refills: RED YEAST RICE ORAL Take by mouth. Qty: Refills: lovastatin (MEVACOR) 20 mg tablet 20 mg Take 20 mg by mouth nightly. Qty: Refills: GLUCOSAMINE HCL (GLUCOSAMINE, BULK, MISC) by Misc.(Non-Drug; Combo Route) route. Qty: Refills: ERGOCALCIFEROL, VITAMIN D2, (VITAMIN D ORAL) Take by mouth. Qty: Refills: ASCORBATE CALCIUM (VITAMIN C ORAL) Take by mouth. Qty: Refills: Medications STOPPED Dose aspirin 325 mg tablet 325 mg Updated Allergies/ADRs: Allergies Allergen Reactions ??? Chocolate Flavor Migraine ??? Alcohol migraine Instructions Given to Patient at Discharge: Provider Instructions Activity: You can weight bear as tolerated on your right leg using a walker or crutches at all times for balance and protection. Wear the JILL hose bilaterally to your lower legs until you are seen in followup. You should remove these at least once per day to inspect your skin. Anti-coagulation follow up: You have been discharged on enteric coated Aspirin to prevent blood clots. You should take Aspirin 325 mg twice daily x 6 weeks - STOP September 13 , unless you are told otherwise by . Diet: As usual, but increase your intake of fluids and fiber while you are on narcotics to prevent constipation Driving: NO driving until you are cleared to do so by Dr. Cornejo. You should NOT drive while you are on narcotic pain meds as these can affect your judgement and reaction times. Contact your surgeon with any questions. Medications: 1. The pain medication you are on can cause constipation so increase your intake of fluids and fiber while you are on them. The stool softener, Sennakot, that has been prescribed can also be taken tofacilite a bowel movement. YOu can take an olld-kuj-oldotwg medication, miralax if needed. 2. If you need a renewal on your narcotic pain medication, you need to give the Orthopedic clinic enough time to process your request. This can take up to three days, so plan accordingly. 3. Continue to take the tylenol around the clock for the next 10 days. It can be effective in controlling pain along with your other medications. Wound : 1. You do not have any external sutures or eliseo in place. Your sutures are internal and will be absorbed over time. 2. You may shower on the 5th postoperative day. 3. Change your dressing daily with a dry sterile dressing for 1 week. After that leave the incisionopen to air. 4. Call your orthopaedic surgeon (#[phone]) with any fever, chills, sweats, redness or discharge from the wounds. Misc: 1. Remember that ICE and elevation are very important after surgery to help decrease swellingand control pain. Use ICE for 20-30 minutes at a time and keep your leg elevated as much as possible. 2. You will have an xray prior to your followup appointment. Report to Radiology Desk 3T 1 hour prior to that appointment for those studies Future Appointments and Orders Future Appointments: Provider: Department: Dept Phone: Center: 09/06/2011 9:20 AM Samm Cornejo MD [facility] [phone] None Joint Appt Health Question Three C [facility] [phone] None Future Orders Please Complete By Expires Type and Screen Future Surgery, SDP ONLY [[id number] Custom] 09/04/11 07/04/12 Process Instructions: This test is intended ONLY for patients with upcoming surgery for testing prior to the day of surgery obtained through the same day program (4V or SDP). For ALL OTHER PATIENTS, order a Type and Screen ([id number]) Scheduling Instructions: Comments: Questions: Responses: Date of surgery: Should this service/procedure be billed to the research sponsor? Referral to Home Health [FDI3677 CPT(R)] Process Instructions: Scheduling Instructions: Comments: DOCUMENTATION FOR VNA SERVICES (INCLUDING THOSE PATIENTS WITH MEDICARE COVERAGE REQUIRING HOME VNA SERVICES AND/OR HOSPICE SERVICES) Adelia Macias Discharge to own home: [phone] [facility] [id number] (home) Java Core Developer's Name: self and son In discussion with the attending physician, it is certified that this patient is under their care and that they, or a nurse practitioner, clinical nurse specialist or physician's mobile sales assistant who is working directly with them, had a face to face encounter that meets the physician face to face encounter requirements with this patient on 08/06/2011 The encounter with the patient was in whole, or in part, for the following medical condition, whichis the primary reason for home health care services: Total Hip replacement anteriour approach 08/05/11. In discussion with the provider, it is certified that, based on their findings, the following services are medically necessary for home health services. To provide the following care/treatments with the clinical findings supporting the need for services as follows: Home Health Agency: [facility] PHONE: [phone] FAX: [phone] Home care orders for Total Hip Replacements: Anterior approach (PT) Pt will be on ASA; therefore there are no blood draws. SQ sutures; therefore there is NO REMOVAL of sutures to be done PT: Continue PT rehab for balance, endurance, joint mobility, ROM, Strength, Total Hip Arthroplastyexercise and restriction protocol Ms Macias requested and has already contacted the [facility] agency noted here. Questions: Responses: Agency name and contact information [facility] in [place], [place] Patient location post discharge own home What services are requested Physical Therapy Start date 08/08/2011 Responsible MD post discharge contact info [facility] ortho Provider Contact Information: Primary Care Provider: None [facility] Attending: Samm Cornejo MD Department of Orthopaedic Surgery Joints: [phone] For questions regarding this document or issues relating to this hospitalization on the Medical Service, please contact your inpatient physician through the [facility] Diet Therapist . Issues afterhours and on weekends will be handled by the Hospitalist staff on-call. Signed: NUZHAT MANZO, HUSSAIN 08/06/2011 * Initial Assessments - Anabell Oreilly, PT - 08/06/2011 8:57 AM EDT Physical Therapy Evaluation Total Hip Arthroplasty Patient Profile: Pt. is a 61 y.o. y.o. female admitted on 08/05/2011 by Samm Frank MD forRight MASOUD for DJD. PMH: Past Medical History Diagnosis Date ? ? Nausea & vomiting PSH: Past Surgical History Procedure Date ??? Unlisted evaluation service removal of uterus ??? Musculoskeletal surgery unlisted left elbow Social History: Patient lives alone in her house. Her son will be staying with her when she first goes home (not sure for how long) and she states that she has friends who will be available to help her thereafter Stairs: 1 without a rail to enter. 1 flight with rail inside that she does not have to ascend/ descend when she first gets home Baseline Mobility: independent Precautions/Special Considerations: WBAT Post-operative course: uncomplicated Subjective: Patient states ???I'm a fainter?? Objective: Vitals: SpO2: 93 - 100%, HR 42 - 55 Most recent Hgb value: 9.4 Pain: 0-1 Functional Mobility: Supine->sit : min. assist Sit->supine: independent Sit->stand independent - SBA Stand->sit SBA with cues Gait: Ambulated 200 ft using crutches . Gait pattern: Reciprocating Ascended and descended 2 steps with rail and CGA Pt. to utilize crutches and SBA to ambulate with nursing staff. Today???s Treatment: Seen in a.m. For evaluation, in p.m. For further gait training and functional mobility Informed Consent: The patient agrees to and understands the PT treatment plan and goals. Education: patient educated on Bed mobility, Transfers, Assistive device/technique, Stairs, Exercise, Gait andDischarge planning and demonstrates understanding. Patient status, treatment, and mobility recommendations discussed with nursing staff. Assessment: Pt is POD#1R ant. MASOUD. Pt. tolerated today???s session fair. Pt presents with minimal pain, nauseau, lightheadedness (resolved) and decreased mobility. Pt. Is meeting the necessary mobility goals to go home but still has some nauseau, which she states she is prone to at baseline. She became faint/ lightheaded when walking this a.m. But has since walked x 2 without lightheadedness. She feels that she is ready for d/c home with her son's assist. Goals met: Pt will be knowledgeable of prescribed exercises. Pt will be knowledgeable and compliant with any above noted precautions. Pt will move supine<>sit with minimal assist. Pt will move sit<>stand with crutches and SBA. Pt will ambulate 200 feet using crutches . Pt will negotiate 2 steps with CGA using crutches. Plan: Equipment needs: No equipment necessary. Discharge Recommendations: Patient would benefit from continued therapeutic interventions 2-3 times a week as provided in a home environment to progress toward functional goals. Physical Therapist recommends: No other consults recommended at this time Total treatment time: 78 minutes Total timed treatment: 33 minutes ANABELL OREILLY PT Pager: [phone] * OR Attestation - Samm Cornejo MD - 08/05/2011 5:51 PM EDT Attestation: Case Date: 08/05/2011 I was present and I participated during the entire procedure (does not need to include opening and closing). SAMM CORNEJO MD 08/05/2011 * Op Note - Samm Cornejo MD - 08/05/2011 5:49 PM EDT [facility] Operative Note Patient Name: Adelia Macias : [id number] MR#: [id number] Case Date: 08/05/2011 Preoperative Diagnosis: Osteoarthritis right Hip Postoperative Diagnosis: Same Procedure Performed: right Total Hip Arthroplasty right hip intraoperative radiologic examination (CPT code 55646) Surgeon: Samm Cornejo MD Project Planner: Fermin Barboza MD Anaesthesia: GA Estimated Blood Loss: 500cc Complications: None known Indications for the Procedure: The patient has been followed in the out-patient clinic with a history of progressively worsening right hip pain. After having failed conservative, non- surgical attempts at managing the pain and limitations of functional capabilities, it was felt that the only remaining option was surgical. A detail ed conversation regarding the risks and benefits of hip arthroplasty surgery was had with the patient. The risks discussed included but were not limited to: infection, bleeding (that may or may not require transfusion), injury to neurologic or vascular structures (that may or may not permanent), fracture, instability / dislocation, leg-length inequality, premature loosening or failure/wear of theimplants, blood clots, medical complications, anaesthesia- related complications (both intra and postoperative), and . Subsequent to this conversation, all of the patient???s questions were answered in great detail and informed consent was subsequently obtained for a right total hip arthroplasty. Implants Used: Femoral Stem: DePuy Corail, Size 10 STD offset Femoral Head: Biolox Delta ceramic, Size 32+1 Acetabulum: DePuy [place] Sector II Gription, Size 48mm Adjuvant screw fixation x 1 x 6.5mm (25mm) Liner: Altrx polyethylene, Size 48x32+4 neutral Intraoperative Findings: Arthritic changes in both the femoral head and acetabulum as evidenced by loss of cartilage, exposed eburnated bone and osteophyte formation. Details of the Procedure: Positioning and Drapping: With the patient in their hospital stretcher, TEDs and SCDs were placed onto both lower extremities. The well-padded feet were then placed into the traction boots, which were then tightened. Distal perfusion checked to ensure good capillary refill into the toes while in traction. Anaesthesia induced. Intubated and vaughan catheter placed. Transfered onto HANA table with leg support under non-op leg. Boots connected into leg spars. Central post positioned in-place. Time-out undertaken confirming name, MRN, , planned procedure and site, antibiotic start time and agent, and outline of any surgical concerns. All in attendance were in agreement to proceed. Skin Preparation: Skin prepped from midline to well posterior to greater trochanter; from one hand breadth above ASISinferiorly to supracondylar area using alcohol, hibiclens and then duraprep, allowed to fully dry. Sterile drapes positioned. Surgical Approach: Incision made starting 1-2 cm distal and posterior to ASIS and angled posteriorly at 30 degrees forapproximately 10cm. Hemostasis achieved using bovie. Fascia over TFL exposed. Clearly avoiding LFCN, fascia incised at junction of anterior 1/3 and posterior 2/3s with knife. Lluvia clamps placed on anterior edge of fascia and finger dissection used to come around medial side of TFL which was retracted laterally using a Alber retractor. Lateral femoral circumflex artery branches identified and cauterized with the bovie. Direct head of rectus elevated medially and released some of origin from anterior capsule. Homanns placed at superior lateral neck and on calcar medially. T-shaped capsulotomy performed along intertroch line from edna to edna and then extending along femoral neck medially toward femoral head. Tagging sutures placed on remaining stump of anterior capsule to use for retraction. Leg rotated externally 45 degrees to reveal lesser trochanter, allowing access to remove more medial/inferior capsule. Leg rotated to 60 degrees ER and 3 cranks of traction applied. Neck osteotomy performed from calcar medially toward base of lateral neck. Posterior portion of greater troch tucked under posterior wall of acetabulum for protection. Corkscrew on power drilled up into the femoral neck and head and then the femoral head was extacted in toto. Acetabular Prep: Traction released and leg externally rotated to 45 degrees. Narrow cobra retractor placed anteriorly and wide cobra posteriorly on acteabular columns. Labrectomy completed. Inferior capsule released and transverse acetabular ligament transected. Acteabulum reamed under both direct visualization as well as under fluoroscopic guidance. Acetabulum reamed to a size 47mm at which size excellent hemispheric contact was noted. Appropriate abduction and anterversion noted when assessed with the C-arm. Cup irrigated and definitive acetabular implant impacted into place, fully seated and achieved excellent fit and stability. Adjuvant screw fixation achieved with 1 6.5mm acetabular screw. Definitive liner impacted into place and noted to fully seat and engage the locking mechanism Femoral Prep: Leg rotated back to neutral. Hook placed around lateral aspect of femur just proximally to gluteal sling. Leg maximally externally rotated so that calcar is pointing vertically, leg adducted, and hyperextended by lowering leg spar to ground. Hook connected to bracket. Hook elevated exposing proximal femur. Garcia retractor placed on posterior femoral neck, edna over tip of greater troch. Residual lateral femoral neck removed with rongeur. Box osteotome used to enter canal, laterally. Canal broached sequentially up to a size 10. This broach sunk to level of preoperative templating. Excellenttorsional stability noted. Trial STD offset neck placed and a trial size 32+1 head affixed. Leg spar broughtup to level and internally rotated to neutral. Light traction used and gentle pressure usedto reduce the head into the acetabulum. All traction released. Stability of hip verified using combinations of external rotation and traction. Satisfied, C-Arm used to verify leg length and offset baptism. Satisfied, hip dislocated using traction and extrenal rotation. Retractors repositioned around proximal femur. Broach trial removed. Canal irrigated. Definitive stem pressfit, noted to seatfully and achieve excellent stablity. Definitive head impacted onto cleansed and dried henderson taper.Retractors removed. Hip reduced without issue. Definitive implant position, alignment and fit re-brittney ified with C-Arm. Closure: Wound irrigated with copious amounts of saline. Fascia of TFL closed in running fashion using #0 vicryl, staying right at the facial edge to ensure distance from the LFCN. #0 vicryl in inverted interrupted fashion for subcutaneous tissues. Running #2-0 vicryl in subcutaneous layer, monocryl for skin, dermabond used as biologic sealant on wound. A sterile dressing was then applied to the wound. The patient was then turned into the supine position and transferred to the recovery room in stable condition. The sponge and instrument counts were correct. There were no complications. The estimated blood loss was 500ccs. The postoperative plan for this patient will include ASA 325mg PO BID x 6 weeks as prophylaxis against deep-venous thrombosis. Full weight-bearing will be allowed, without formal dislocation precautions. Physiotherapy to see today and then BID Perioperative prophylactic antibiotics for the next 24 hours. Implant Summary: Implant Name Type Inv. Item Serial No. Storm Window Installer Lot No. LRB No. Used Action CUP,ACTBR,GRPTN,SECTOR,48MM ([id number]) (AUTOREQ) - [id number] IMPLANTS CUP,ACTBR,GRPTN,SECTOR,48MM ([id number]) (AUTOREQ) [employer] - [id number] Right 1 Implanted LINER,ACTBR,+4MM,NTRL,[id number] ([id number]) (AUTOREQ) - [id number] IMPLANTS LINER,ACTBR,+4MM,NTRL,[id number] ([id number]) (AUTOREQ) [employer]uy Textile Examiner - [id number] Right 1 Implanted SCREW,CACLS,PNNCL,6.5X25MM ([id number]) (AUTOREQ) - [id number] IMPLANTS SCREW,CACLS,PNNCL,6.5X25MM ([id number]) (AUTOREQ) [employer] Text[employer] Examiner - [id number] Right 1 Implanted STEM,FMRL,CLRD,10,135DEG,140MM ([id number]) (AUTOREQ) - [id number] IMPLANTS STEM,FMRL,CLRD,10,135DEG,140MM ([id number]) (AUTOREQ) [employer] Textile Examiner - [id number] Right 1 Implanted HEAD,FMRL,+1MM,12-14,32MM ([id number]) (AUTOREQ) - [id number] IMPLANTS HEAD,FMRL,+1MM,12-14,32MM ([id number]) (AUTOREQ) [employer] - [id number] Right 1 Implanted * Miscellaneous - Provider, Scanning - 08/05/2011 2:25 PM EDT documented in this encounter Plan of Treatment Pending Results Name Type Priority Associated Diagnoses Date /Time XR Fluoro OR c-arm storage only Imaging Routine 08/05/2011 5:23 PM EDT Scheduled Orders Name Type Priority Associated Diagnoses Orde r Schedule XR Fluoro OR c-arm storage only Imaging Routine Once PRN (for Ra diant use) for 1 Occurrences starting 08/05/2011 until 08/05/2011 documented as of this encounter Procedures Procedure Name Priority Date/Time Associated Diagnosis Comments IMPLANTABLE DEVICES SCAN 08/07/2011 12:56 PM EDT DIFFERENTIAL, AUTOMATED Routine 08/06/2011 3:06 AM EDT CBC (WITH DIFF) Routine 08/06/2011 3:06 AM EDT BASIC METABOLIC PANEL Routine 08/06/2011 3:06 AM EDT XR PELVIS Routine 08/05/2011 7:09 PM EDT SURGICAL PATHOLOGY REPORT Routine 08/05/2011 5:56 PM EDT SPECIMEN TO PATHOLOGY Routine 08/05/2011 3:06 PM EDT MODIFIER PINNACLE GRIPTION ACETABULUM DEPUY 08/05/2011 2:27 PM EDT DJD (degenerative joint disease) of hip MODIFIER CORAIL FEMORAL STEM DEPUY 08/05/2011 2:27 PM EDT DJD (degenerative joint disease) of hip TOTAL HIP ARTHROPLASTY, ANTERIOR APPROACH (WRVU 19.6) 08/05/2011 2:27 PM EDT DJD (degenerative joint disease) of hip ABO/RH TYPING Routine 08/05/2011 10:24 AM EDT DJD (degenerative joint disease) of hip ANTIBODY SCREEN Routine 08/05/2011 10:24 AM EDT DJD (degenerative joint disease) of hip TYPE AND SCREEN, SDP (FUTURE SURGERY, [facility] SAME DAY PROGRAM ONLY) Routine 08/05/2011 10:16 AM EDT DJD (degenerative joint disease) of hip documented in this encounter Results * SCAN DOC: IMPLANTABLE DEVICES (08/07/2011 12:56 PM EDT) Narrative 08/07/2011 12:56 PM EDT Procedure Note Provider, Scanning - 08/07/2011 12:56 PM EDT Scanning Provider MEDIA MGR SCAN EXT O RDR/RSLT * (ABNORMAL) DIFFERENTIAL, AUTOMATED (08/06/2011 3:06 AM EDT) Neutrophil % 88.7(H) 34.0 - 71.0 % CERNER MILLENNIUM Neutrophil Absolute 6.26 1.50 - 6.30 x10(3)/mc L CERNER MILLENNIUM Lymph % 8.5(L) 19.0 - 53.0 % CERNER MILLENNIUM Lymphocytes Abs 0.6(L) 1.0 - 3.6 x10(3)/mc L CERNER MILLENNIUM Monocyte % 2.7(L) 4.0 - 13.0 % CERNER MILLENNIUM Monocyte Abs 0.2 0.2 - 1.0 x10(3)/mc L CERNER MILLENNIUM Eos % 0.0 0.0 - 7.0 % CERNER MILLENNIUM Eosinophils Abs 0.0 0.0 - 0.5 x10(3)/mc L CERNER MILLENNIUM Basophil % 0.0 0.0 - 2.0 % CERNER MILLENNIUM Baso Absolute 0.0 0.0 - 0.2 x10(3)/mc L CERNER MILLENNIUM Immature Gran % 0.10 0.00 - 0.66 % CERNER MILLENNIUM Comment: Immature granulocytes(IG's)percentage and absolute count will include metamyelocytes, myelocytes, and promyelocytes. Blood smears from CBCs yielding IG's will be scanned manually for concordance. If this scan disagrees with the automated IG or if promyelocytes are noted, a manual differential will be performed. Immature Gran Absolute 0.01 0.00 - 0.05 x10(3)/mc L CERNER MILLENNIUM Blood specimen (specimen) 08/06/2011 3:06 AM EDT 08/06/2011 3:46 AM EDT Samm Cornejo MD HEMATOLOGY ORDERABLE S CERNER MILLENNIUM * (ABNORMAL) Basic Metabolic Panel (non-fasting) (08/06/2011 3:06 AM EDT) Glucose 225(H) 60 - 199 mg/dL CERNER MILLENNIUM Comment:Diabetes: >=200 mg/d L plus symptoms Blood Urea Nitrogen 15 8 - 18 mg/dL CERNER MILLENNIUM Creatinine 0.58(L) 0.70 - 1.20 mg/dL CERNER MILLENNIUM Sodium 138 135 - 145 mmol/L CERNER MILLENNIUM Potassium 4.5 3.5 - 5.0 mmol/L CERNER MILLENNIUM Comment: Please note: ??Patients with WBC >100,000 may have falsely elevated Potassium levels. ??For accurate Potassium quantification in these patients send serum separator tube (gold top) for subsequent determinations. ??Contact the Clinical Chemistry Laboratory if there are any questions. Chloride 104 98 - 107 mmol/L CERNER MILLENNIUM Carbon Dioxide 28 22 - 31 mmol/L CERNER MILLENNIUM Anion Gap 6 5 - 15 mmol/L CERNER MILLENNIUM Calcium 8.4(L) 8.5 - 10.5 mg/dL CERNER MILLENNIUM Est [...] J Am Soc Nephrol;6:1963-72. Blood specimen (specimen) 08/06/2011 3:06 AM EDT 08/06/2011 3:46 AM EDT Narrative Resulting Agency Comment Spec In Lab Samm Cornejo MD CHEMISTRY ORDERABLES SANTHOSHCYRUS TIDWELLCHARLEENASHELY * (ABNORMAL) CBC (with Diff) (08/06/2011 3:06 AM EDT) White Blood Cell 7.1 4.0 - 10.0 x10(3)/mc L CERNER MILLENNIUM Red Blood Cell 3.01(L) 3.93 - 5.22 x10(6)/mc L CERNER MILLENNIUM Hemoglobin 9.4(L) 11.2 - 15.7 gm/dL CERNER MILLENNIUM Hematocrit 28.0(L) 34.0 - 45.0 % CERNER MILLENNIUM Mean Cell Volume 93.0 79.0 - 94.0 fL CERNER MILLENNIUM Mean Cell Hemoglobin 31.2 26.6 - 32.2 pg CERNER MILLENNIUM Mean Cell Hemoglobin Concentration 33.6 32.0 - 36.5 gm/dL CERNER MILLENNIUM Platelet 172 145 - 370 x10(3)/mc L CERNER MILLENNIUM RDW Standard Deviation 43.5 35.0 - 46.0 fL CERNER MILLENNIUM RDW coefficient of variation 12.8 10.9 - 14.4 % CERNER MILLENNIUM Mean Platelet Volume 9.9 9.0 - 12.0 fL CERNER MILLENNIUM Blood specimen (specimen) 08/06/2011 3:06 AM EDT 08/06/2011 3:46 AM EDT Narrative Resulting Agency Comment Spec In Lab Samm Cornejo MD HEMATOLOGY ORDERABLE S MINOO TIDWELLENNIUM * XR pelvis 1 or 2 views (08/05/2011 7:09 PM EDT) Anatomical Region Laterality Modality Pelvis N/A Radiographic Lorie ging 08/05/2011 7:09 PM EDT Narrative 08/06/2011 11:01 AM EDT Examination PELVIS 1 OR 2 VIEWS/XPORT Clinical History Reason for exam and clinical history: s/p hip arthroplasty; Comparison 07/05/2011. Technique Portable AP supine. Findings Status post noncemented right total hip arthroplasty, with an acetabular and femoral components in good position alignment. ??Soft tissue changes and edema overlying the right lateral hip. ??Minor degenerative changes are noted in the left hip. Impression Procedure Note Unique Killian MD - 08/06/2011 Examination PELVIS 1 OR 2 VIEWS/XPORT Clinical History Reason for exam and clinical history: s/p hip arthroplasty; Comparison 07/05/2011. Technique Portable AP supine. Findings Status post noncemented right total hip arthroplasty, with an acetabularand femoral components in good position alignment. Soft tissue changes andedema overlying the right lateral hip. Minor degenerative changes are noted inthe left hip. Impression Samm Cornejo MD IMG DX ORDERABLES * SURGICAL PATHOLOGY REPORT (08/05/2011 5:56 PM EDT) Surgical Pathology Report ? [facility] ? Provider: ?? SAMM CORNEJO ?? Pt. Name: ?? ADELIA MACIAS ? Acc #: ?[id number] ?Pt. ? Col Date: ?? 08/05/2011 ? /Sex: ?1950,([age] ? years),Female ? Rec Date: ?? 08/05/2011 ? LOC: ?3[facility] ? SURGICAL PATHOLOGY ? ---Pathologic Diagnosis--- ? Articular bone and soft tissue showing osteoarthritis, ? right femoral head. ?Gross surgical pathology examination. ? CR-0 ? 08/09/11 ? AJE ? 08/10/11 Verified by: ? Tonia Ojeda DO ? Pathologist ? (Electronic Signature) ? The attending pathologist whose signature appears on this report has ? reviewed all diagnostic slides and has edited the gross and/or ? microscopic portion of the report in rendering the final pathologic ? diagnosis. ? ---Gross Description--- ? Labeled/Fixativ e: ? Femoral head from right hip, fresh. ? Quantity/Size: ?One femoral head, 3.7 x 3.7 x 3.8 cm. ? Tissue Description: ?? Femoral head. ?Margin: ?Smooth, firm surgical margin. ?Articular surface: Granular, friedman-pink. ?Eburnation: ?Present. ?Osteophytes: ? Present. ?Cut surface: ? Reveal firm, friedman-yellow marrow. ?Subchondral Sclerosis: ??Present. ?Subchondral Cysts: ?Present. ? Sections/Proces sing: ??No sections are submitted. ??aje/PPS ? ---Clinical Information--- ? Specimen Submitted: ? A - Femoral head from right hip ? Clinical History/Diagnos is: ? OA R hip MINOO HERNANDEZIUM 08/05/2011 5:56 PM EDT Samm Cornejo MD PATHOLOGY/CYTOLOGY O LIBAN Performing Organization Address City/[facility]/ZIP Co de Phone Number MINOO MCMAHON * Specimen to Pathology (surgical or derm) (08/05/2011 3:06 PM EDT) AP Specimen 08/05/2011 3:06 PM EDT 08/05/2011 3:06 PM EDT Narrative MINOO HERNANDEZIUM - 08/05/2011 3:06 PM EDT Specimen requisition ordered. ??Separate Pathology report to follow Samm Cornejo MD PATHOLOGY/CYTOLOGY O LIBAN MINOO MCMAHON * ANTIBODY SCREEN (08/05/2011 10:24 AM EDT) Ab Screen Interp Negative MINOO MCMAHON Expires at [id number] on: [id number] MINOO MCMAHON Blood specimen (specimen) 08/05/2011 10:24 AM EDT 08/05/2011 10:26 AM EDT Narrative Resulting Agency Comment Spec In Lab Samm Cornejo MD BLOOD BANK LAB ORDER LISSETH Performing Organization Address City/[facility]/ZIP Co de Phone Number MINOO MCMAHON * ABO/RH TYPING (08/05/2011 10:24 AM EDT) ABORH Type O Pos MINOO MCMAHON Blood specimen (specimen) 08/05/2011 10:24 AM EDT 08/05/2011 10:26 AM EDT Narrative Resulting Agency Comment Spec In Lab Samm Cornejo MD BLOOD BANK LAB ORDER LISSETH Performing Organization Address [facility] Co de Phone Number MINOO MCMAHON documented in this encounter Visit Diagnoses Diagnosis DJD (degenerative joint disease) of hip s/p MASOUD 08/04 Osteoarthrosis, unspecified whether generalized or localized, pelvic region and thigh Status post THR (total hip replacement) Hip joint replacement by other means documented in this encounter Administered Medications Inactive Administered Medications - up to 3 most recent administrations Medication Order MAR Action Action Date Dose Rate Site acetaminophen (TYLENOL) tablet 1,000 mg 1,000 mg, Oral, EVERY 8 HOURS SCHEDULED, First dose on Mon08/05/11 at 2200, Until Discontinued, Maximum dose of acetaminophen is 4000 mg from all sources in 24 hours., Routine Given 08/06/2011 2:34 PM EDT 1,000 mg Given by Other 08/06/2011 6:00 AM EDT 1,000 mg Given 08/05/2011 10:00 PM EDT 1,000 mg aspirin EC tablet 325 mg 325 mg, Oral, 2 TIMES DAILY, First dose on Mon08/06/11 at 0900, Until Discontinued, Routine Given 08/06/2011 9:07 AM EDT 325 mg ceFAZolin (ANCEF) 1g in dextrose 5% 50mL 1,000 mg (1 g), Intravenous, EVERY 8 HOURS, 3 doses, First dose on Mon08/05/11 at 1815, Last dose on Mon08/06/11 at 1015, Administer over 30 Minutes, For 3 doses postoperatively. Adjust to 8 hours from intraoperative dose., Indication for (Active or Suspected): Prophylaxis New 08/06/2011 2:42 PM EDT 1,000 mg 100 mL/ hr New 08/06/2011 9:07 AM EDT 1,000 mg 100 mL/hr New 08/05/2011 11:00 PM EDT 1,000 mg 100 mL/hr celecoxib (celeBREX) capsule 400 mg 400 mg, Oral, ONCE, 1 dose, On Mon08/05/11 at 1115, Administer on arrival to Same Day Program, Day of Surgery (Day of Procedure), Routine Given 08/05/2011 11:52 AM EDT 400 mg dextrose 5% and sodium chloride 0.45% with potassium chloride 20 mEq infusion 75 mL/hr, Intravenous, CONTINUOUS, Starting on Mon08/05/11 at 1815, Until Mon08/06/11 at 2005 08/05/2011 6:15 PM EDT 75 mL/hr 75 mL/hr esomeprazole (NEXIUM) capsule 40 mg 40 mg, Oral, DAILY, First dose on Mon08/05/11 at 1815, Until Discontinued, Routine Given 08/06/2011 9:08 AM EDT 40 mg Given 08/05/2011 6:15 PM EDT 40 mg gabapentin (NEURONTIN) capsule 600 mg 600 mg, Oral, ONCE, 1 dose, On Mon08/05/11 at 1115, Administer on arrival in Same Day Program, Day of Surgery (Day of Procedure), Routine Given 08/05/2011 11:52 AM EDT 600 mg lactated ringers infusion 1,000 mL 1,000 mL, at 100 mL/hr, Intravenous, CONTINUOUS, Starting on Mon08/05/11 at 1115, Until Mon08/05/11 at 2119, Day of Surgery (Day of Procedure) 08/05/2011 11:15 AM EDT 1,000 mLs 100 mL/hr morphine 1 mg/mL SCREEN PRINTER HELPER 30 mL Intravenous, SCREEN PRINTER HELPER ONLY, Starting on Mon08/05/11 at 1815, Until Mon08/05/11 at 2125, LOADING DOSE (0-4 mg): zero, SCREEN PRINTER HELPER DOSE (0.5-1.5 mg): 0.5 mg, LOCKOUT INTERVAL (5-20 minutes): : 12 min, CONTINUOUS Infusion Rate (for opioid tolerant patients only): zero, FOUR HOUR DOSE LIMIT (5-30 mg): : 20 mg New Syringe/Cartridge 08/05/2011 6:15 PM EDT mL/hr ondansetron (ZOFRAN) injection 4 mg 4 mg, Intravenous, EVERY 30 MIN PRN, 2 doses, Starting on Mon08/05/11 at 1758, Until 08/06/11 at 1715, Nausea, May repeat dose once in 30 minutes if no relief from previous dose., Routine Given 08/06/2011 5:15 PM EDT 4 mg Given 08/06/2011 8:24 AM EDT 4 mg OXYcodone (oxyCONTIN) CR tablet 10 mg 10 mg, Oral, ONCE, On Mon08/05/11 at 1115, 1 dose, Administer on arrival in Same Day Program, Day of Surgery (Day of Procedure) Given 08/05/2011 11:52 AM EDT 10 mg senna-docusate (PERICOLACE) 8.6-50 mg per tablet 1-4 tablet 1-4 tablet, Oral, 2 TIMES DAILY, First dose on Mon08/05/11 at 2215, Until Discontinued, Start with 1 tablet or liquid equivalent orally twice daily and titrate up to achieve: 1. One bowel movement at least every 48 hours, AND 2. Without straining, Routine Given 08/06/2011 9:08 AM EDT 2 tablets Given 08/05/2011 10:15 PM EDT 2 tablets sodium chloride 0.9 % flush 5 mL 5 mL, Intravenous, EVERY 12 HOURS, First dose on Mon08/05/11 at 2215, Until Discontinued Given 08/06/2011 10:15 AM EDT 5 mLs Given 08/05/2011 10:15 PM EDT 5 mLs documented in this encounter Active and Recently Administered Medications Times are shown in EDT. Scheduled Medication Order 08/04/2011 08/05/2011 08/06/2011 acetaminophen (TYLENOL) tablet 1,000 mg 1,000 mg, Oral, EVERY 8 HOURS SCHEDULED, First dose on Mon08/05/11 at 2200, Until Discontinued, Maximum dose of acetaminophen is 4000 mg from all sources in 24 hours., Routine 2200 (Given - Provider: Julia Fontenot RN) 0600 (Given by Other - Provider: Joseph Dickson RN)1434 (Given - Provider: Joseph Dickson RN) aspirin EC tablet 325 mg 325 mg, Oral, 2 TIMES DAILY, First dose on 08/06/11 at 0900, Until Discontinued, Routine 0907 (Given - Provid er: Joseph Dickson RN) ceFAZolin (ANCEF) 1g in dextrose 5% 50mL (COMPLETED) 1,000 mg (1 g), Intravenous, ONCE, 1 dose, On Mon08/05/11 at 1115, Administer over 30 Minutes, To be administered upon arrival to the OR within one hour prior to incision., Day of Surgery (Day of Procedure), Indication for (Active or Suspected): Prophylaxis 1115 (Due)1433 (Given - Provider: Wilmer Manzo)1500 (Stopped - Provider: Joseph Dickson RN) ceFAZolin (ANCEF) 1g in dextrose 5% 50mL (COMPLETED) 1,000 mg (1 g), Intravenous, EVERY 8 HOURS, 3 doses, First dose on Mon08/05/11 at 1815, Last dose on 08/06/11 at 1015, Administer over 30 Minutes, For 3 doses postoperatively. Adjust to 8 hours from intraoperative dose., Indication for (Active or Suspected): Prophylaxis 2300 (New Bag - Provider: Julia Fontenot RN) 0000 (Stopped - Provider: Joseph Dickson RN)0907 (New Bag - Provider: Joseph Dickson RN)1442 (New Bag - Provider: Joseph Dickson RN)1548 (Stopped - Provider: Joseph Dickson RN)1700 (Due - Provider: Joseph Dickson RN) celecoxib (celeBREX) capsule 400 mg (COMPLETED) 400 mg, Oral, ONCE, 1 dose, On Mon08/05/11 at 1115, Administer on arrival to Same Day Program, Day of Surgery (Day of Procedure), Routine 1152 (Given - Provider: Fozia M Ambrocio, RN) esomeprazole (NEXIUM) capsule 40 mg (CANCELED) 40 mg, Oral, DAILY, First dose on Mon08/05/11 at 1815, Until Discontinued, Routine 1814 (Given - Provider: Rosario Strange RN) 0908 (Given - Provider: Joseph Dickson RN) gabapentin (NEURONTIN) capsule 600 mg (COMPLETED) 600 mg, Oral, ONCE, 1 dose, On Mon08/05/11 at 1115, Administer on arrival in Same Day Program, Day of Surgery (Day of Procedure), Routine 115 (Given - Provider: Fozia Albrecht, TIMO) OXYcodone (oxyCONTIN) CR tablet 10 mg (COMPLETED) 10 mg, Oral, ONCE, On Mon08/05/11 at 1115, 1 dose, Administer on arrival in Same Day Program, Day of Surgery (Day of Procedure) 115 (Given - Provider: Fozia Albrecht, TIMO) senna-docusate (PERICOLACE) 8.6-50 mg per tablet 1-4 tablet 1-4 tablet, Oral, 2 TIMES DAILY, First dose on Mon08/05/11 at 2215, Until Discontinued, Start with 1 tablet or liquid equivalent orally twice daily and titrate up to achieve: 1. One bowel movement at least every 48 hours, AND 2. Without straining, Routine 2214 (Given - Provider: Julia Fontenot RN) 0908 (Given - Provider: Joseph Dickson RN) sodium chloride 0.9 % flush 5 mL (CANCELED) 5 mL, Intravenous, EVERY 12 HOURS, First dose on Mon08/05/11 at 2215, Until Discontinued 2214 (Given - Provider: Julia Fontenot RN) 1015 (Given - Provider: Joseph Dickson RN) Continuous Medication Order 08/04/2011 08/05/2011 08/06/2011 dextrose 5% and sodium chloride 0.45% with potassium chloride 20 mEq infusion (CANCELED) 75 mL/hr, Intravenous, CONTINUOUS, Starting on Mon08/05/11 at 1815, Until 08/06/11 at 2004 1815 (New Bag - Provider: Rosario Strange RN) 1100 (Stopped - Provider: Joseph Dickson RN) lactated ringers infusion 1,000 mL (CANCELED) 1,000 mL, at 100 mL/hr, Intravenous, CONTINUOUS, Starting on Mon08/05/11 at 1115, Until Mon08/05/11 at 2119, Day of Surgery (Day of Procedure) 1115 (New Bag - Provider: Fozia Albrecht RN)1200 (Stopped - Provider: Joseph Dickson RN) morphine 1 mg/mL SCREEN PRINTER HELPER 30 mL (CANCELED) Intravenous, SCREEN PRINTER HELPER ONLY, Starting on Mon08/05/11 at 1815, Until Mon08/05/11 at 2125, LOADING DOSE (0-4 mg): zero, SCREEN PRINTER HELPER DOSE (0.5-1.5 mg): 0.5 mg, LOCKOUT INTERVAL (5-20 minutes): : 12 min, CONTINUOUS Infusion Rate (for opioid tolerant patients only): zero, FOUR HOUR DOSE LIMIT (5-30 mg): : 20 mg 1815 (New Syringe/Cartridge - Provider: Rosario Strange RN) PRN Medication Order 08/04/2011 08/05/2011 08/06/2011 ondansetron (ZOFRAN) injection 4 mg (COMPLETED) 4 mg, Intravenous, EVERY 30 MIN PRN, 2 doses, Starting on Mon08/05/11 at 1758, Until 08/06/11 at 1715, Nausea, May repeat dose once in 30 minutes if no relief from previous dose., Routine 0824 (Given - Provid er: Joseph Dickson RN)1715 (Given - Provider: Joseph Dickson RN) OXYcodone (ROXICODONE) immediate release tablet 5 mg(Linked Group 1) 5 mg, Oral, EVERY 4 HOURS PRN, Starting on Mon08/05/11 at 1758, Until 08/06/11 at 2005, Pain, mild pain, For Mild pain. Do not exceed 15 mg in 4 hours. If pain not relieved, call provider, Routine Linked Groups Order Group 1: OXYcodone (ROXICODONE) immediate release tablet 5 mgJump to med 5 mg, Oral, EVERY 4 HOURS PRN, Starting on Mon08/05/11 at 1758, Until 08/06/11 at 2005, Pain, mild pain, For Mild pain. Do not exceed 15 mg in 4 hours. If pain not relieved, call provider, Routine Or OXYcodone (ROXICODONE) immediate release tablet 10 mg (CANCELED) 10 mg, Oral, EVERY 4 HOURS PRN, Starting on 08/05/11 at 1758, Until 08/06/11 at 2004, Pain, moderate pain, For Moderate pain. Do not exceed 15 mg in 4 hours. If pain not relieved, call provider., Routine Or OXYcodone (ROXICODONE) immediate release tablet 15 mg (CANCELED) 15 mg, Oral, EVERY 4 HOURS PRN, Starting on Mon08/05/11 at 1758, Until 08/06/11 at 2004, Pain, severe pain, For severe pain. Do not exceed 15 mg in 4 hours. If pain not relieved, call provider., Routine documented in this encounter Care Teams Freight Coordinator Relationship Specialty Start Date End Date None None PCP - General 07/27/11 07/04/18 documented as of this encounter
--- OUTSIDE RECORDS SUMMARY | 2024-02-06 10:01 | XMS_ITS | Encounter Summary ---
Author Organization [facility] [place] [address] [place] [address] Care Team Providers Care Account Underwriter Name Role Phone Unknown Primary Care Provider Unavailabl e Encounter Details Date Type Department Care Team (Latest Contact Info) Description 07/05/2011 2:40 PM EDT Clinical Support Same Day [facility] [place] [address] DJD (degenerative joint disease) of hip Social [...] Sign Reading Time Taken Comments Blood Pressure - - Pulse - - Temperature - - Respiratory Rate - - Oxygen Saturation 100% 07/05/2011 2:39 PM EDT Inhaled Oxygen Concentration - - Weight - - Height - - Body Mass Index - - documented in this encounter Progress Notes * Rocio Bryan RN - 07/05/2011 3:45 PM EDT Pre-anesthesia questionnaire reviewed. No issues with anesthesia in the past. Pre-op folder reviewed with patient and all questions addressed. Labs, EKG and CXR done today. T&S to be drawn on day of surgery which is not officially booked yet. documented in this encounter Plan of Treatment Not on file documented as of this encounter Procedures Procedure Name Priority Date/Time Associated Diagnosis Comments EKG 12-LEAD Routine 07/05/2011 3:31 PM EDT DJD (degenerative joint disease) of hip documented in this encounter Results * EKG 12 Lead (07/05/2011 3:31 PM EDT) Ventricular rate 44 BPM MUSE SYSTEM Atrial Rate 44 BPM MUSE SYSTEM P-R Interval 172 ms MUSE SYSTEM QRS Duration 84 ms MUSE SYSTEM Q-T Interval 468 ms MUSE SYSTEM QTC Calculated (Bezet) 400 ms MUSE SYSTEM Calculated P [place] 26 degrees MUSE SYSTEM Calculated R [place] 60 degrees MUSE SYSTEM Calculated T [place] 43 degrees MUSE SYSTEM INTERPRETATION Marked sinus bradycardia Otherwise normal ECG No previous ECGs available Confirmed by MD Freddy, Chet ([id number]) on 07/06/2011 2:22:28 PM MUSE SYSTEM 07/05/2011 3:31 PM EDT 07/06/2011 2:22 PM EDT Samm Hoang MD ECG ORDERABLES MUSE SYSTEM documented in this encounter Visit Diagnoses Diagnosis DJD (degenerative joint disease) of hip Osteoarthrosis, unspecified whether generalized or localized, pelvic region and thigh documented in this encounter Care Teams Account Underwriter Relationship Specialty Start Date End Date Unknown None PCP - General 06/03/11 07/26/11 documented as of this encounter
--- OUTSIDE RECORDS SUMMARY | 2024-02-06 10:01 | XMS_ITS | Encounter Summary ---
Author Organization [facility] Address [facility] [place] [address] [place] [address] Care Team Providers Care Test Deskman Name Role Phone Unknown Primary Care Provider Unavailabl e Encounter Details Date Type Department Care Team (Latest Contact Info) Description 07/05/2011 2:51 PM EDT - 07/05/2011 11:59 PM EDT Hospital [place] [id number] Samm Cornejo MD [facility] [place] [address] DJD (degenerative joint disease) of hip Discharge Disposition: Home Social History Tobacco Use [...] 8 hours as needed for Pain. 08/06/2011 acetaminophen (TYLENOL) 500 mg tablet Take 2 tablets by mouth every 8 hours. 30 tablet 08/06/2011 08/06/2011 aspirin 325 mg tablet Take 1 tablet by mouth 2 times daily. 30 tablet 08/06/2011 08/06/2011 OXYcodone (ROXICODONE) 5 mg immediate release tablet Take 1-3 tablets by mouth every 4 hours as needed for Pain (mild pain). 75 tablet 0 08/06/2011 08/06/2011 senna-docusate (PERICOLACE) 8.6-50 mg per tablet Take 1-4 tablets by mouth 2 times daily. 60 tablet 1 08/06/2011 08/06/2011 aspirin 325 mg EC tablet Take [...] for Nausea. 20 tablet 0 08/06/2011 09/14/2011 lovastatin (MEVACOR) 20 mg tablet Take 20 mg by mouth nightly. 06/27/2018 UNABLE TO FIND Med Name: solminex nightly 07/27/2011 GLUCOSAMINE HCL (GLUCOSAMINE, BULK, MISC) by Misc.(Non-Drug; Combo Route) route. 07/05/2018 ERGOCALCIFEROL, VITAMIN D2, (VITAMIN D ORAL) Take by mouth. 06/27 ASCORBATE CALCIUM (VITAMIN C ORAL) Take by mouth. 9 aspirin 81 mg EC tablet Take 81 mg by mouth daily. 07/27/2011 documented as of this encounter Plan of Treatment Not on file documented as of this encounter Procedures Procedure Name Priority Date/Time Associated Diagnosis Comments URINALYSIS WITH REFLEX CULTURE Routine 07/05/2011 3:38 PM EDT DJD (degenerative joint disease) of hip URINE CULTURE Routine 07/05/2011 3:38 PM EDT DJD (degenerative joint disease) of hip DIFFERENTIAL, AUTOMATED Routine 07/05/2011 3:23 PM EDT APTT Routine 07/05/2011 3:23 PM EDT DJD (degenerative joint disease) of hip SEDIMENTATION RATE Routine 07/05/2011 3: 23 PM EDT DJD (degenerative joint disease) of hip PROTHROMBIN TIME Routine 07/05/2011 3:23 PM EDT DJD (degenerative joint disease) of hip CBC (WITH DIFF) Routine 07/05/2011 3:23 PM EDT DJD (degenerative joint disease) of hip CRP, CARDIAC RISK (HS CRP) Routine 07/05/2011 3:23 PM EDT DJD (degenerative joint disease) of hip PROTEIN, TOTAL Routine 07/05/2011 3:23 PM EDT DJD (degenerative joint disease) of hip HEMOGLOBIN A1C Routine 07/05/2011 3:23 PM EDT DJD (degenerative joint disease) of hip ALBUMIN LEVEL Routine 07/05/2011 3:23 PM EDT DJD (degenerative joint disease) of hip BASIC METABOLIC PANEL Routine 07/05/2011 3:23 PM EDT DJD (degenerative joint disease) of hip documented in this encounter Results * Urine culture Clean Catch Urine (07/05/2011 3:38 PM EDT) Urine Culture ? Patient Name: ADELIA MACIAS ? Ordered By: SAMM CORNEJO ? MR#: [id number] ?LOC: ??4V ? /Sex: ??1950 (61 years), [...] MD MICROBIOLOGY - GENER AL ORDERABLES CERNER MILLENNIUM * Urinalysis with microscopic (07/05/2011 3:38 PM [...] Urine Dipstick Clear Clear CERNER MILLENNIUM Specific [place] Urine Automated 1.021 1.002 - 1.030 CERNER [...] In Lab Samm Cornejo MD URINE ORDERABLES CERCYRUS MILLENNIUM * DIFFERENTIAL, AUTOMATED (07/05/2011 3:23 PM EDT) Neutrophil % 56.4 34.0 - 71.0 % CERNER MILLENNIUM Neutrophil Absolute 2.22 1.50 - 6.30 x10(3)/mcL CERNER MILLENNIUM Lymph % 29.9 19.0 - 53.0 % CERNER MILLENNIUM Lymphocytes Abs 1.2 1.0 - 3.6 x10(3)/mcL CERNER MILLENNIUM Monocyte % 10.9 4.0 - 13.0 % CERNER MILLENNIUM Monocyte Abs 0.4 0.2 - 1.0 x10(3)/mcL CERNER MILLENNIUM Eos % 2.0 0.0 - 7.0 % CERNER MILLENNIUM Eosinophils Abs 0.1 0.0 - 0.5 x10(3)/mcL CERNER MILLENNIUM Basophil % 0.5 0.0 - 2.0 % CERNER MILLENNIUM Baso Absolute 0.0 0.0 - 0.2 x10(3)/mcL CERNER MILLENNIUM Immature Gran % 0.30 0.00 - 0.66 % CERNER MILLENNIUM Comment: Immature granulocytes(IG's)percentage and absolute count will include metamyelocytes, myelocytes, and promyelocytes. Blood smears from CBCs yielding IG's will be scanned manually for concordance. If this scan disagrees with the automated IG or if promyelocytes are noted, a manual differential will be performed. Immature Gran Absolute 0.01 0.00 - 0.05 x10(3)/mcL CERNER MILLENNIUM Blood specimen (specimen) 07/05/2011 3:23 PM EDT 07/05/2011 3:43 PM EDT Samm Cornejo MD HEMATOLOGY ORDERABLE S MINOO MCMAHON * Hemoglobin A1c (07/05/2011 3:23 PM EDT) Hemoglobin A1c 5.8 4.3 - 6.1 % [facility] Estimated Average Glucose 120 mg/dL [facility] Comment: eAG equivalents for HbA1c percentages: HbA1c(%) [...] into estimated average glucose values. ??Diabetes Care 2008:31(8):8754-4619. Blood specimen (specimen) 07/05/2011 3:23 PM EDT 07/05/2011 3:43 PM EDT Narrative Resulting Agency Comment Spec In Lab Samm Cornejo MD CHEMISTRY ORDERABLES [facility] * Protein, total (07/05/2011 3:23 PM EDT) [facility] Protein, Total 7.5 6.4 - 8.3 gm/dL [facility] Blood specimen (specimen) 07/05/2011 3:23 PM EDT 07/05/2011 3:43 PM EDT Narrative Resulting Agency Comment Spec In Lab Samm Cornejo MD CHEMISTRY ORDERABLES Performing Organization Address [facility] Co de Phone Number MINOO MCMAHON * Albumin Level (07/05/2011 3:23 PM EDT) Albumin 4.5 3.2 - 5.2 gm/dL [facility] Blood specimen (specimen) 07/05/2011 3:23 PM EDT 07/05/2011 3:43 PM EDT Narrative Resulting Agency Comment Spec In Lab Samm Cornejo MD CHEMISTRY ORDERABLES Performing Organization Address [facility] de Phone Number MINOO MCMAHON * High Sensitivity CRP (07/05/2011 3:23 PM EDT) C-Reactive Protein High Sensitivity 0.6 mg/L [facility] Comment: Interpretations: 1) For cardiac risk assessment, [...] have been treated with carboxypenicillins. References: 1. Jackson OSBORN et. al. ??AHA/CDC Scientific Statement: Markers of Inflammation and Cardiovascular Disease. ??Circulation 2003; 107:499-511 2. Ridker PM. ??Clinical applications of C-reactive protein for cardiovascular disease detection and prevention. ??Circulation 2003; 107:363-369 Blood specimen (specimen) 07/05/2011 3:23 PM EDT 07/05/2011 3:43 PM EDT Narrative Resulting Agency Comment Spec In Lab Samm Cornejo MD CHEMISTRY ORDERABLES Performing Organization Address [facility] de Phone Number [facility] * Sedimentation rate (07/05/2011 3:23 PM EDT) Sedimentation Rate Automated 19 0 - 20 mm/hr [facility] Blood specimen (specimen) 07/05/2011 3:23 PM EDT 07/05/2011 3:43 PM EDT Narrative Resulting Agency Comment Spec In Lab Samm Cornejo MD HEMATOLOGY ORDERABLE S Performing Organization Address [facility] de Phone Number Induction Manager * APTT (07/05/2011 3:23 PM EDT) Partial Thromboplastin Time 27 25 - 35 sec [facility] [employer] Comment: Recommended therapeutic PTT range for full dose unfractionated heparin is 80-114 seconds. Blood specimen (specimen) 07/05/2011 3:23 PM EDT 07/05/2011 3:43 PM EDT Narrative Resulting Agency Comment Spec In Lab Samm Cornejo MD HEMATOLOGY ORDERABLE S Performing Organization Address [facility] de Phone Number Induction Manager * Prothrombin Time (07/05/2011 3:23 PM EDT) Prothrombin Time 12.9 11.9 - 14.7 sec [facility] [employer] Comment: [facility] Transfusion Committee Guidelines: INR less than 2.0, [...] Lab Samm Cornejo MD CHEMISTRY ORDERABLES MINOO MCMAHON * (ABNORMAL) CBC (with Diff) (07/05/2011 3:23 PM EDT) White Blood Cell 3.9(L) 4.0 - 10.0 x10(3)/mc L CERNER MILLENNIUM Red Blood Cell 4.37 3.93 - 5.22 x10(6)/mc L CERNER MILLENNIUM Hemoglobin 13.7 11.2 - 15.7 gm/dL CERNER MILLENNIUM Hematocrit 40.5 34.0 - 45.0 % [...] Samm Cornejo MD HEMATOLOGY ORDERABLE S MINOO MCMAHON documented in this encounter Visit Diagnoses Diagnosis DJD (degenerative joint disease) of hip Osteoarthrosis, unspecified whether generalized or localized, pelvic region and thigh documented in this encounter Care Teams Test Deskman Relationship Specialty Start Date End Date Unknown None PCP - General 06/03/11 07/26/11 documented as of this encounter
--- OUTSIDE RECORDS SUMMARY | 2024-02-06 10:01 | XMS_ITS | Encounter Summary ---
Author Organization Formerly [facility] [place] [address] Care Team Providers Care Special Assemblies Supervisor Name Role Phone None Primary Care Provider Unavailabl e Encounter Details Date Type Department Care Team (Late st Contact Info) Description 08/05/2011 11:56 AM EDT - 08/05/2011 2:54 PM EDT [place] [address] Samm Cornejo MD [facility] [place] [address] TOTAL HIP ARTHROPLASTY, ANTERIOR APPROACH (WRVU 19.6) Social History Tobacco Use Types Packs/Day Years [...] encounter Discharge Instructions * Patient Instructions* Nuzhat Manzo, FOOD SAFETY COORDINATOR - 08/06/2011 9:42 AM EDT Activity: You [...] a bowel movement. YOu can take an uccr-zjl-wjfnfyi medication, miralax if needed. 2. If you [...] to air. 4. Call your orthopaedic surgeon (#[phone]) with any fever, chills, sweats, redness or [...] tablet 0 08/06/2011 09/14/2011 FLAXSEED ORAL by [facility].(Non-Drug; Combo Route) route. 06/27/2018 EVENING PRIMROSE OIL (EVENING PRIMROSE ORAL) Take by mouth. RED YEAST RICE ORAL Take by mouth. 2018 lovastatin (MEVACOR) 20 mg tablet Take 20 mg by mouth nightly. 06/27/2018 GLUCOSAMINE HCL (GLUCOSAMINE, BULK, MISC) by [facility].(Non-Drug; Combo Route) route. 07/05/2018 ERGOCALCIFEROL, VITAMIN D2, [...] is a 61 y.o. female patient of Samm Frank MD, admitted on 08/05/2011 secondary to anterior [...] Issued sock aid, long handled sponge and tank pumper. Patent will wear berkinstocks. Patient able to don/doff socks using tank pumper and sock aid. Patient plans to wear [...] Sit to supine: independent Discussed use of tank pumper and placement of items for ease of [...] discharge: Patient has all necessary equipment; issued tank pumper, sock aid and long handled sponge Discharge Recommendations: home with family Other Recommendations: No other consults recommended at this time Plan: D/C after eval Total time spent with patient: 26 minutes brief eval and ADL training Total timed interventions: 15 minutes ADL training Pager: [phone] AGUS JACOBSEN OT 08/06/2011 Occupational Therapy Rehabilitation Department * Jessie Collins RN - 08/06/2011 12:44 PM EDT Office of Care Management (OCM) / Clinical Business Services Clerk (CRC)/ Initial Assessment Discussed patient with Provider [...] Home PT services. Pt has already contacted [facility] to ask about them providing [...] be made available via EDischarge Program for: [facility] PHONE: [phone] FAX: [phone] Pt advised re and will f/u w [facility] re out of pocket cost IF no [...] Joint Reconstruction Surgery [place] [address] * Julia Fontenot RN - 08/06/2011 5:50 AM EDT Pt. Admitted from PACU via bed. Pt arrived A & O X3., Lungs clear, HRR, Hypoactive BS, pt reports last BM was 08/05/11 . Pt. Has dsg intact to right hip . Venodyes in place. RN oriented pt. To room, call meyer, IS, and BED RUBBER. Pt. Aware to alert RN to any [...] in this encounter Nursing Notes * Raeann Pantoja RN - 08/05/2011 3:24 PM EDT Medication [...] BP Temp Temp src Pulse Resp SpO2 08/06/11 1136 75/37 mmHg 36.7 ??C (98.1 ??F) - 58 14 97 % 08/05/ 0745 - - - 65 - 97 % 08/06/11 0524 80/46 mmHg - - - - [...] a bowel movement. YOu can take an gmqb-bny-bvgunqk medication, miralax if needed. 2. If you [...] to air. 4. Call your orthopaedic surgeon (#[phone]) with any fever, chills, sweats, redness or [...] 9:20 AM Samm Cornejo MD [facility] [phone] None Joint Appt Health Question Three C Ortho [facility] 3c [phone] None Future Orders Please Complete By Expires Type and Screen Future Surgery, SDP ONLY [[id number] Custom] 09/04/11 07/04/12 Process Instructions: This test is intended ONLY for patients with upcoming surgery for testing prior to the day of surgery obtained through the same day program (4V or SDP). For ALL OTHER PATIENTS, order a Type and Screen (HLF859) Scheduling Instructions: Comments: Questions: Responses: Date of surgery: Should this service/procedure be billed to the research sponsor? Referral to Home Health [LJQ7979 CPT(R)] Process Instructions: Scheduling Instructions: Comments: DOCUMENTATION FOR VNA SERVICES (INCLUDING THOSE PATIENTS WITH MEDICARE COVERAGE REQUIRING HOME VNA SERVICES AND/OR HOSPICE SERVICES) Adelia Macias Discharge to own home: [address] [facility] [address] (home) Shaft Headman's Name: self and son In discussion with the attending physician, it is certified that this patient is under their care and that they, or a nurse practitioner, clinical nurse specialist or physician's assistant chief nursing officer who is working directly with them, had [...] as follows: Home Health Agency: [facility] PHONE: [phone] FAX: [phone] Home care orders for Total Hip Replacements: Anterior approach (PT) Pt will be on ASA; therefore there are no blood draws. SQ sutures; therefore there is NO REMOVAL of sutures to be done PT: Continue PT rehab for balance, endurance, joint mobility, ROM, Strength, Total Hip Arthroplastyexercise and restriction protocol Ms Macias requested and has already contacted the [facility] agency noted here. Questions: Responses: Agency name and contact information [facility] in [place], [place] Patient location post discharge own home What services are requested Physical Therapy Start date 08/08/2011 Responsible MD post discharge contact info [facility] ortho Provider Contact Information: Primary Care Provider: None None Hospital Attending: Samm Cornejo MD Department of Orthopaedic Surgery Joints: [phone] For questions regarding this document or issues relating to this hospitalization on the Medical Service, please contact your inpatient physician through the [facility] [employer] . Issues afterhours and on weekends will [...] treatment: 33 minutes ANABELL OREILLY PT Pager: [phone] * OR Attestation - Samm Cornejo MD - 08/05/2011 5:51 PM EDT Attestation: Case Date: 08/05/2011 I was present and I participated during the entire procedure (does not need to include opening and closing). SAMM CORNEJO MD 08/05/2011 * Op Note - Samm Cornejo MD - 08/05/2011 5:49 PM EDT [facility] Operative Note Patient Name: Adelia Macias : [id number] MR#: [id number] Case Date: 08/05/2011 Preoperative Diagnosis: Osteoarthritis right Hip Postoperative Diagnosis: Same Procedure Performed: right Total Hip Arthroplasty right hip intraoperative radiologic examination (CPT code 47328) Surgeon: Samm Cornejo MD Best Worker: Fermin Barboza MD Anaesthesia: GA Estimated Blood [...] Biolox Delta ceramic, Size 32+1 Acetabulum: DePuy [place] Sector II Gription, Size 48mm Adjuvant screw [...] used to verify leg length and offset scientologist. Satisfied, hip dislocated using traction and extrenal [...] Implant Name Type Inv. Item Serial No. Emergency Medical Technician Lot No. LRB No. Used Action CUP,ACTBR,GRPTN,SECTOR,48MM ([id number]) (AUTOREQ) - [id number] IMPLANTS CUP,ACTBR,GRPTN,SECTOR,48MM ([id number]) (AUTOREQ) [employer] [facility] [id number] Right 1 Implanted LINER,ACTBR,+4MM,NTRL,[id number] ([id number]) (AUTOREQ) - [id number] IMPLANTS LINER,ACTBR,+4MM,NTRL,[id number] ([id number]) (AUTOREQ) [facility] [id number] Right 1 Implanted SCREW,CACLS,PNNCL,6.5X25MM ([id number]) (AUTOREQ) - [id number] IMPLANTS SCREW,CACLS,PNNCL,6.5X25MM ([id number]) (AUTOREQ) [facility] [id number] Right 1 Implanted STEM,FMRL,CLRD,10,135DEG,140MM ([id number]) (AUTOREQ) - [id number] IMPLANTS STEM,FMRL,CLRD,10,135DEG,140MM ([id number]) (AUTOREQ) [facility] [id number] Right 1 Implanted HEAD,FMRL,+1MM,12-14,32MM ([id number]) (AUTOREQ) - [id number] IMPLANTS HEAD,FMRL,+1MM,12-14,32MM ([id number]) (AUTOREQ) [employer] - [id number] Right 1 Implanted * Miscellaneous - Provider, [...] hip TYPE AND SCREEN, SDP (FUTURE SURGERY, [facility] SAME DAY PROGRAM ONLY) Routine 08/05/2011 10:16 [...] MINOO MCMAHON * (ABNORMAL) CBC (with Diff) (08/06/2011 3:06 AM EDT) White Blood Cell 7.1 4.0 - 10.0 x10(3)/mc L CERNER MILLENNIUM Red Blood Cell 3.01(L) 3.93 - 5.22 x10(6)/mc L CERNER MILLENNIUM Hemoglobin 9.4(L) 11.2 - 15.7 gm/dL CERCYRUS MILLENNIUM Hematocrit 28.0(L) 34.0 - 45.0 % [...] 5:56 PM EDT) Surgical Pathology Report ? [facility] ? Provider: ?? SAMM CORNEJO ?? Pt. Name: ?? ANNE ADELIA Awad ? Acc #: ?[id number] ?Pt. ? Col Date: ?? 08/05/2011 ? [...] History/Diagnos is: ? OA R hip MINOO MCMAHON 08/05/2011 5:56 PM EDT Samm Cornejo MD PATHOLOGY/CYTOLOGY O LIBAN Performing Organization Address [facility] Co de Phone Number MINOO MCMAHON * Specimen to Pathology (surgical or derm) (08/05/2011 3:06 PM EDT) AP Specimen 08/05/2011 3:06 PM EDT 08/05/2011 3:06 PM EDT Narrative MINOO HERNANDEZIUM - 08/05/2011 3:06 PM EDT Specimen requisition ordered. ??Separate Pathology report to follow Samm Cornejo MD PATHOLOGY/CYTOLOGY O LIBAN Performing Organization Address [facility]/State/ZIP Co de Phone Number MINOO HERNANDEZIUM * ANTIBODY SCREEN (08/05/2011 10:24 AM EDT) Ab Screen Interp Negative MINOO HERNANDEZIUM Expires at 2359 on: [id number] MINOO MCMAHON Blood specimen (specimen) 08/05/2011 10:24 AM EDT 08/05/2011 10:26 AM EDT Narrative Resulting Agency Comment Spec In Lab Samm Cornejo MD BLOOD BANK LAB ORDER LISSETH Performing Organization Address City/[facility] Co de Phone Number MINOO MCMAHON * ABO/RH TYPING (08/05/2011 10:24 AM EDT) ABORH Type O Pos MINOO MCMAHON Blood specimen (specimen) 08/05/2011 10:24 AM EDT 08/05/2011 10:26 AM EDT Narrative Resulting Agency Comment Spec In Lab Samm Cornejo MD BLOOD BANK LAB ORDER LISSETH Performing Organization Address [facility] Co de Phone Number MINOO MCMAHON documented in this encounter Visit Diagnoses Diagnosis DJD (degenerative joint disease) of hip s/p MASOUD 08/04 Osteoarthrosis, unspecified whether generalized or localized, pelvic region and thigh Status post THR (total hip replacement) Hip joint replacement by other means DJD (degenerative joint disease) of hip Osteoarthrosis, unspecified whether generalized or localized, pelvic region and thigh documented in this encounter Administered Medications Inactive Administered Medications - up to 3 most recent administrations Medication Order MAR Action Action Date Dose Rate Site ceFAZolin (ANCEF) 1g in dextrose 5% 50mL 1,000 mg (1 g), Intravenous, ONCE, 1 dose, On Mon08/05/11 at 1115, Administer over 30 Minutes, To be administered upon arrival to the OR within one hour prior to incision., Day of Surgery (Day of Procedure), Indication for (Active or Suspected): Prophylaxis Given 08/05/2011 2:33 PM EDT 1 g documented in this encounter Active and Recently [...] Procedure), Routine 1152 (Given - Provider: Fozia Albrecht RN) esomeprazole (NEXIUM) capsule 40 mg (CANCELED) [...] Procedure), Routine 115 (Given - Provider: Fozia Albrecht RN) OXYcodone (oxyCONTIN) CR tablet 10 mg (COMPLETED) 10 mg, Oral, ONCE, On Mon08/05/11 at 1115, 1 dose, Administer on arrival in Same Day Program, Day of Surgery (Day of Procedure) 115 (Given - Provider: Fozia Albrecht RN) senna-docusate (PERICOLACE) 8.6-50 mg per tablet 1-4 [...] Provider: Joseph Dickson RN) morphine 1 mg/mL BED RUBBER 30 mL (CANCELED) Intravenous, BED RUBBER ONLY, Starting on Mon08/05/11 at 1815, Until Mon08/05/11 at 2125, LOADING DOSE (0-4 mg): zero, BED RUBBER DOSE (0.5-1.5 mg): 0.5 mg, LOCKOUT INTERVAL [...] Routine documented in this encounter Care Teams Special Assemblies Supervisor Relationship Specialty Start Date End Date None None PCP - General 07/27/11 07/04/18 documented as of this encounter
--- OUTSIDE RECORDS SUMMARY | 2024-02-06 10:01 | XMS_ITS | Encounter Summary ---
Author Organization [facility] Address [facility] [place] [address] Care Team Providers Care Orthopedic Brace Maker Name Role Phone Unknown Primary Care Provider Unavailabl e Encounter Details Date Type Department Care Team (Latest Contact Info) Description 07/05/2011 3:45 PM EDT - 07/05/2011 11:59 PM EDT Hospital Encounter XRay at [address] [place] [address] CLINIC, DR GIAN Hoang, Samm Flores MD [facility] [place] [address] DJD (degenerative joint disease) of hip Discharge [...] Name Priority Date/Time Associated Diagnosis Comments XR CHEST PA AND LATERAL Routine 07/05/2011 3:52 PM EDT DJD (degenerative joint disease) of [...] COPD. No acute cardiopulmonary disease seen. Samm Hoang MD IMG DX ORDERABLES documented in this encounter Visit Diagnoses Diagnosis DJD (degenerative joint disease) of hip Osteoarthrosis, unspecified whether generalized or localized, pelvic region and thigh documented in this encounter Care Teams Orthopedic Brace Maker Relationship Specialty Start Date End Date Unknown None PCP - General 06/03/11 07/26/11 documented as of this encounter
--- OUTSIDE RECORDS SUMMARY | 2024-02-06 10:01 | XMS_ITS | Encounter Summary ---
Author Organization Formerly [facility] [facility] [place] [address] Care Team Providers Care Ict Developer Name Role Phone Unknown Primary Care Provider Unavailabl e Encounter Details Date Type Department Care Team (Late st Contact Info) Description 07/05/2011 11:39 AM EDT - 07/05/2011 2:50 PM EDT Hospital Encounter XRay at [address] [place] [address] Hip pain Social History Tobacco Use Types Packs/Day Years [...] 07/27/2011 GLUCOSAMINE HCL (GLUCOSAMINE, BULK, MISC) by [facility]Non-Drug; Combo Route) route. 07/05/2018 ERGOCALCIFEROL, VITAMIN D2, [...] Comments XR PELVIS AND LATERAL HIP Routine 07/05/2011 11:50 AM EDT Hip pain documented in this encounter Results * XR pelvis and [...] in this encounter Visit Diagnoses Diagnosis Hip pain Pain in joint, pelvic region and thigh documented in this encounter Care Teams Ict Developer Relationship Specialty Start Date End Date Unknown None PCP - General 06/03/11 07/26/11 documented as of this encounter
--- OUTSIDE RECORDS SUMMARY | 2024-02-06 10:01 | XMS_ITS | Encounter Summary ---
Author Organization [place] [address] Care Team Providers Care Meals On Wheels Driver Name Role Phone Unknown Primary Care Provider Unavailabl e Encounter Details Date Type Department Care Team (Late st Contact Info) Description 07/15/2011 Orders [place] [address] Samm Hoang MD [facility] [address] [place] [address] Social History Tobacco Use Types Packs/Day Years [...] on filedocumented in this encounter Care Teams Meals On Wheels Driver Relationship Specialty Start Date End Date Unknown None PCP - General 06/03/11 07/26/11 documented as of this encounter
--- OUTSIDE RECORDS SUMMARY | 2024-02-06 10:01 | XMS_ITS | Encounter Summary ---
Author Organization [facility] [place] [address] Care Team Providers Care Montessori Preschool Teacher Name Role Phone None Primary Care Provider Unavailabl e Encounter Details Date Type Department Care Team (Late st Contact Info) Description 08/05/2011 2:31 PM EDT Anesthesia Event [place] [address] Meredith Welsh MD [facility] [place] [address] Priscilla Rosas MD [facility] [place] [address] Anesthesia Record Procedure Summary Procedure Name Responsible Anesthesiologist Anesthesia Start Time Anesthesia Stop Time TOTAL HIP ARTHROPLASTY, ANTERIOR APPROACH (WRVU 19.6) (Right: Hip) Meredith Welsh MD 08/05/11 1431 08/05/11 1754 Events Date Time Event Comment 08/05/2011 1246 1431 Start 1754 Stop Meds * Agents No agents on file. * Blood No blood administrations on file. Lines, Drains, and Airways Type Details Placement Removal Urethral Catheter 08/05/11; indwelling double lumen catheter; latex; 16; inserted; 1; drainage bag to dependent drainage (urine clear, light yellow); 08/06/11 08/05/11 0000 by Raeann Pantoja RN 08/06/11 0000 by Julia Fontenot RN Incision 08/05/11; hip; 11/15/21 (LDA cleanup utility RA#[id number]); 1715 (LDA cleanup utility RA#[id number]) 08/05/11 0000 by Raeann Pantoja RN 11/15/21 1715 by Elyse Castro (RETIRED) Peripheral IV Line - Single Lumen 08/05/11; 1147; 08/06/11; 1722 08/05/11 1147 by Gena Kidd RN 08/06/11 1722 by Joseph Dickson RN documented in this encounter Social History Tobacco Use Types Packs/Day Years Used Date Smoking Tobacco: Never Smokeless Tobacco: Never Alcohol Use Standard Drinks/Week Comments No 0 (1 standard drink = 0.6 oz pur e alcohol) Sex and Gender Information Value Date Recorded Sex Assigned at Not on file Gender Identity Not on file Sexual Orientation Not on file documented as of this encounter OR Notes * Anesthesia Postprocedure Evaluation - Meredith Welsh MD - 08/05/2011 7:18 PM EDT Patient: Deborah Macias Procedure(s) Performed: Procedure(s): @TOTAL HIP ARTHROPLASTY, ANTERIOR APPROACH MODIFIER CORAIL FEMORAL STEM DEPUY MODIFIER PINNACLE ACETABULUM DEPUY Patient location: PACU Post-op pain: Adequate analgesia- pain is 0/10! Post-op nausea: no nausea or vomiting Last Vitals: Filed Vitals: 08/05/11 1900 BP: 91/45 Pulse: 85 Temp: 36.9 ??C (98.4 ??F) Resp: 20 Post-op cardiovascular and respiratory status: is stable Level of consciousness: awake Complications: no apparent complications Fluid Status: normal * Anesthesia Preprocedure Evaluation - Priscilla Rosas MD - 08/04/2011 3:11 PM EDT Anesthesia Evaluation Patient summary reviewed and Nursing notes reviewed Hx of anesthetic complications (PONV x1 after hysterectomy) Airway Mallampati: I TM distance: >3 FB Neck ROM: full Dental Comment: Caps top front incisors and canines Pulmonary (+) recent URI (Resolved 1 week ago), (-) asthma and sleep apnea Cardiovascular Exercise tolerance: good (-) hypertension ROS comment: Hyperlipidemia Neuro/Psych GI/Hepatic/Renal (-) GERD, liver disease and renal disease Endo/Other (+) arthritis (hands and hips), (-) Type I DM and Type II DM Abdominal Anesthesia Plan ASA 1 General with intravenous induction GA/ET Anesthetic plan and risks discussed with patient. Use of blood products discussed with and consented by patient. Plan discussed with attending. documented in this encounter Miscellaneous Notes * Addendum Note - Jeana Martinez - 08/08/2011 10:17 AM EDT Addendum created 08/08/11 1017 by Jeana Martinez Modules edited:Anesthesia Events, Anesthesia Responsible Staff documented in this encounter Plan of Treatment Not on file documented as of this encounter Visit Diagnoses Not on filedocumented in this encounter Care Teams Montessori Preschool Teacher Relationship Specialty Start Date End Date None None PCP - General 07/27/11 07/04/18 documented as of this encounter
[2024-02-06 19:38] LABS: ALT 49 U/L (14-59); AST 36 U/L (15-37); Albumin 3.8 g/dL (3.4-5.0); Alkaline Phosphatase 71 U/L (46-116); Anion Gap 5.5 mmol/L (3-11); BUN 23 mg/dL (7-18); Bilirubin, Total 0.41 mg/dL (0.2-1.0); CO2 31.5 mmol/L (21.0-32.0); CREATININE 0.8 mg/dL (0.55-1.02); Calcium 9.2 mg/dL (8.5-10.1); Calculated LDL 88 mg/dL (<100); Chloride 107 mmol/L (98-107); Cholesterol 172 mg/dL (<200); Estimated GFR 78.24 (mL/min/1.73m2); Glucose 99 mg/dL (74-106); HDL Cholesterol 77 mg/dL (40-60); Potassium 4.2 mmol/L (3.5-5.1); Sodium 144 mmol/L (136-145); Total Protein 7.3 g/dL (6.4-8.2); Triglyceride 39 mg/dL (<150)
== END 2024-02-06 09:54 | disposition home or self-care (01) ==
LOC: NCHCN 09:53
PROVIDERS: Visit Provider Nurse Practitioner Family
DX: E78.5 Hyperlipidemia, unspecified (principal)
CPT/HCPCS: 80053; 80061; 88305